=== PATIENT | female | born 1950 | race Caucasian/White ===

== ENCOUNTER 2018-09-23 17:11 | Inpatient (IN) | payer OTHER ==
[~2018-09-23] VITALS: Ht 157.5 cm; Wt 111.6 kg
--- NOTE | ~2018-09-23 | PR ---
[place], [place] PROGRESS NOTE NAME: SAMSON HERNÁNDEZ UNIT #: [id number] ROOM: 412 DOCTOR: DELIA ADAMS MD BIRTHDATE: [birth year] DOS: 09/30/2018 SUBJECTIVE: The patient is doing better. She has achieved maximum benefit from her stay here. OBJECTIVE: VITAL SIGNS: Graphic trend shows a pressure of 150/59, pulse of 75, respirations 20, temperature 98.6. LUNGS: Diminished breath sounds, scattered rales heard. HEART: Regular. ABDOMEN: Obese. EXTREMITIES: Without any edema. LABORATORY DATA: Sputum culture showing Staph aureus which is methicillin sensitive. ASSESSMENT AND PLAN: 1. Bilateral pneumonia with consolidation, status post bronchoscopy, with Staphylococcus aureus. 2. Hypertension. 3. Type 2 diabetes mellitus. Blood sugars 93 this morning to 414 yesterday evening. 4. Adult failure to thrive. The patient refused to go to rehab. Social service will be consulted for visiting nurses with PT, OT. 5. Respiratory failure, needs oxygen supplementation, 2 liters of oxygen continuous has been ordered. 6. Klebsiella pneumoniae, on meropenem and it should be switched to a p.o. antibiotic upon discharge. DELIA ADAMS MD CM:PNTRANS [id number] DELIA ADAMS MD 10/01/18 0524 interface
--- NOTE | ~2018-09-23 | EKG ---
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: Tova Blandon : 1950 Requested By: KASHIF HESTER Order Number: [id number] Reading MD: Kashif Ireland MD Measurements Intervals [place] Rate: 59 P: 69 MT: 229 QRS: 71 QRSD: 84 T: 53 QT: 511 QTc: 507 Interpretive Statements Sinus rhythm Prolonged MT interval Low voltage with right axis deviation Prolonged QT interval Compared to ECG 09/23/2018 18:24:13 First degree AV block now present Right-axis deviation now present Low QRS voltage now present Prolonged QT interval now present Electronically Signed On 09-26-2018 11:49:32 PDT by Kashif Ireland MD CM:EKGRPT:ELECTROCARDIOGRAM REPORT [id number] KASHIF HESTER MD EPIPHANY DRAFT REPORT KASHIF HESTER MD
--- NOTE | ~2018-09-23 | PR ---
[place], [place] PROGRESS NOTE NAME: SAMSON HERNÁNDEZ UNIT #: [id number] ROOM: 412 DOCTOR: DELIA ADAMS MD BIRTHDATE: [birth year] DOS: SUBJECTIVE: The patient is feeling much better this morning. Appreciate Dr. Ireland's input. OBJECTIVE: VITAL SIGNS: Blood pressure is 128/49, pulse of 66, respirations 20, temperature 98.0. LUNGS: Diminished breath sounds. Wheezes seem to be resolving. She seems to have some rales bilaterally. HEART: Regular. ABDOMEN: Obese, soft. EXTREMITIES: Without any edema. ASSESSMENT AND PLAN: 1. Acute hypoxic respiratory failure, assess for home O2 today. 2. Left upper and middle lobe pneumonia with consolidation. Dr. Ireland is seeing the patient. A bronchoscopy is scheduled today. 3. Acute kidney injury, multifactorial, possibly from underlying infectious process and shock kidney. 4. Urinary tract infection with Klebsiella pneumoniae, on meropenem. 5. Benign hypertension, controlled. Echocardiogram shows normal left ventricular function. No evidence of congestive heart failure this admission. 6. Type 2 diabetes mellitus, poorly controlled. Blood sugars are well controlled here for the last 48 hours. DELIA ADAMS MD CM:PNTRANS [phone] DELIA ADAMS MD 09/27/1809 interface
--- NOTE | ~2018-09-23 | WRIGHTHP ---
[place], [place] PATIENT HISTORY AND PHYSICAL EXAM NAME: SAMSON HERNÁNDEZ [facility] #: [id number] UNIT #: [id number] ROOM: 412 DOCTOR: DELIA ADAMS MD BIRTHDATE: [birth year] DOS: 09/23/2018 HISTORY OF PRESENT ILLNESS: This patient comes in with complaints of increasing difficulty breathing. The patient states that she has been sick for the last 2-3 weeks with a cough and increased sputum production. She denied having any chest pains, palpitations, does not have any fever or chills. She has noticed some swelling in her legs and in the Emergency Room, received 80 mg of Lasix. She has been taking 60 twice a day at home. PAST MEDICAL HISTORY: Significant for: 1. Type 2 diabetes mellitus, insulin-dependent, poorly controlled. 2. Last hospitalization in 08/2016, with diastolic CHF and hypoxic respiratory failure. Last stress test in 2015. 3. Primary osteoarthritis, right hip replacement. 4. Noncompliance with poor insight to medical problems. MEDICATIONS: She is currently on are 60 of Lasix b.i.d., atenolol 100 daily, glipizide 10 b.i.d., breathing treatments, lisinopril 20 b.i.d., lovastatin 10 daily, Lantus 28 units at bedtime. SOCIAL HISTORY: Nonsmoker, does not use any alcohol. PHYSICAL EXAMINATION: GENERAL: She is awake and alert and oriented. VITAL SIGNS: Blood pressure is 121/44, pulse of 98, respirations 22, temperature 98.0, pulse of 59. LUNGS: Diminished breath sounds, scattered wheezes bilaterally. HEART: Regular. ABDOMEN: Obese. EXTREMITIES: Without any edema. LABORATORY DATA: Chest x-ray shows cardiomegaly with CHF. Lactic acid was normal. WBC count is 11.4, hemoglobin 11.5, hematocrit 37.3. Protime 12.7. Comprehensive glucose 272, BUN 48, creatinine 2.70. ASSESSMENT AND PLAN: 1. Acute asthmatic bronchitis. The patient is placed on IV steroids, Pulmicort breathing treatments and IV antibiotics. 2. Possibility of diastolic congestive heart failure was raised. She was given extra diuretics in the Emergency Room. It has caused some slight elevation in BUN and creatinine. We will hold off on diuretics today. CT of the chest will be done without contrast. 3. Type 2 diabetes mellitus, insulin-dependent, poorly controlled in the past. Check hemoglobin A1c. 4. Benign hypertension, controlled. Check echocardiogram. [place], [place] PATIENT HISTORY AND PHYSICAL EXAM NAME: SAMSON HERNÁNDEZ UNIT #: [id number] ROOM: [facility] DOCTOR: DELIA ADAMS MD BIRTHDATE: [birth year] DELIA ADAMS MD CM:HISPHYS:PATIENT HISTORY AND PHYSICAL EXAMINATION 1 7 DELIA ADAMS MD 09/24/18925 interface
--- NOTE | ~2018-09-23 | PR ---
[place], [place] PROGRESS NOTE NAME: SAMSON HERNÁNDEZ UNIT #: [id number] ROOM: 412 DOCTOR: DELIA ADAMS MD BIRTHDATE: [birth year] DOS: 09/25/2018 SUBJECTIVE: The patient is sitting up in bed, using her breathing treatments. She does not appear to be in any major distress, wants to go home. OBJECTIVE: VITAL SIGNS: Graphic trend shows pressure 138/58, pulse of 58, respirations 18, temperature 98.5. LUNGS: Diminished breath sounds, scattered wheezes. HEART: Regular. ABDOMEN: Obese. EXTREMITIES: Without any edema. LABORATORY DATA: CT of the chest shows patchy areas of pneumonia involving the left upper and lower lobes. Blood culture shows no bacterial growth. Hemoglobin A1c is 8.8. ASSESSMENT AND PLAN: 1. Left upper and lower lobe pneumonia, on intravenous antibiotics. 2. Asthmatic bronchitis with acute exacerbation, on intravenous steroids. 3. Steroid-induced hyperglycemia and a type 2 diabetic, poorly controlled. She did not have any further hypoglycemic spells. 4. Chronic kidney disease. Avoid diuretics right now. There is no evidence of congestive heart failure. One bag of intravenous fluids to be given today. 5. Hypoxic respiratory failure. May require oxygen supplementation at home. DELIA ADAMS MD CM:PNTRANS 1 3 DELIA ADAMS MD 09/25/18 0823 interface
--- NOTE | ~2018-09-23 | DS ---
[place], [place] DISCHARGE SUMMARY NAME: SAMSON HERNÁNDEZ UNIT #: [id number] ROOM: 412 DOCTOR: BRYAN WINSTONDELIA BIRTHDATE: [birth year] DOS: 09/30/2018 DIAGNOSES: 1. Bilateral pneumonia with consolidation. 2. Bronchoscopy with bronch culture showing Staphylococcus aureus. 3. Type 2 diabetes mellitus, insulin-dependent. 4. Hypoxic respiratory failure. 5. Acute kidney injury. 6. Urinary tract infection. 7. Primary osteoarthritis. 8. Noncompliance with poor insight to medical problems. DISCHARGE MEDICATIONS: Breathing treatments, DuoNeb q.4h., oxygen 2 L per minute continuous, Pulmicort 0.5 b.i.d., calcium 1000 q.i.d., prednisone tapering dose, Lantus 40 units q. 5 p.m., glipizide 10 daily, Lasix 40 daily, hydralazine 25 b.i.d., Augmentin 875 twice a day for 7 days, and lovastatin 10 daily. HOSPITAL COURSE: This patient is 68 years old, comes in with complaints of shortness of breath and cough. The patient was admitted with diagnosis of CHF, but the patient did not have any CHF on admission. She mostly had bilateral pneumonia with consolidation, was placed on IV antibiotics and IV fluids. Diuretics that the patient was on were discontinued because of acute kidney injury. Hydration as well as albumin therapy, kidney functions have improved slightly. The patient's CT of the chest continued to show large bilateral pneumonia with consolidation. Dr. Ireland was consulted. Bronchoscopy was performed. Bronch cultures grew Staph aureus. The patient was given 1 dose of IV vancomycin and will be switched to p.o. Augmentin. UTI was noted with urine culture showing Klebsiella pneumoniae. Blood sugars have been up and down. She has had some hypoglycemic spells during the night, so the glyburide dosage was cut back. The Lantus dosage was increased. She has continued to require oxygen supplementation during the last few days and oxygen will be ordered upon home discharge. PT/OT has been consulted and the patient was encouraged to go to a rehab, but refused and so the plan therefore is to discharge her to home today to be followed as an outpatient. [place], [place] DISCHARGE SUMMARY NAME: SAMSON HERNÁNDEZ UNIT #: [id number] ROOM: [facility] DOCTOR: DELIA ADAMS MD BIRTHDATE: [birth year] DELIA ADAMS MD CM:ROLY [id number] DELIA ADAMS MD 09/30/18 1755 interface
--- NOTE | ~2018-09-23 | PROC NOTE ---
[place], [place] PROCEDURE NOTE NAME: SAMSON HERNÁNDEZ UNIT #: [id number] ROOM: 412 DOCTOR: TOMY HESTER MD,KASHIF BIRTHDATE: [birth year] DOS: 09/27/2018 BRONCHOSCOPY NOTE PREOPERATIVE DIAGNOSES: The patient with abnormal CT scan of the chest with excessive coughing, wheezing and acute pneumonia, rule out any malignancy. POSTOPERATIVE DIAGNOSES: Evidence of acute pneumonia was suggested. There was no visibility of any bronchial obstruction at the present time. Finding of acute tracheobronchitis as well. PROCEDURE DESCRIPTION: Informed consent was obtained. The patient was brought to the OR and placed in supine position. Conscious sedation was administered by the Anesthesia Department. After that, airway introduced into the mouth, bronchoscope advanced through the airway into laryngeal area. Epiglottis and vocal cords were seen, vocal cords moving symmetrically with movements. The bronchoscope was advanced to the vocal cords into the tracheal lumen, noted with a moderate amount of bilious secretions, suctioned out to the vivi level. All secretions were suctioned out with the help of normal saline wash. Vivi was seen. Submucosal edema noted of the tracheal lumen as well as endobronchial tree subsegment. Purulent secretion present in the endobronchial tree subsegments bilaterally, greater on the left than the right side, which was suctioned out and sent for culture. Procedure was well tolerated by the patient without difficulty. Postoperative findings will be discussed with the patient's family member once available or with the patient later once the patient recovers the effects of acute sedation. KASHIF HUITRON MD CM:PROCNOTE:PROCEDURE NOTE [id number] KASHIF HESTER MD
--- NOTE | ~2018-09-23 | PR ---
[place], [place] PROGRESS NOTE NAME: SAMSON HERNÁNDEZ UNIT #: [id number] ROOM: 412 DOCTOR: TOMY HESTER MD,KASHIF BIRTHDATE: [birth year] DOS: 09/29/2018 SUBJECTIVE: The patient was still noted with some shortness of breath with chest congestion and cough. Denies symptoms of chest pain. Denies symptoms of fever or chills or any acute hemoptysis. She denies symptoms of nausea or vomiting. OBJECTIVE: VITAL SIGNS: For the patient, which are recorded showed normal temperature, respiratory rate 18, heart rate 89, blood pressure 157/52-146/68. The pulse ox saturation on 2 liters nasal cannula was 97% saturation. HEENT: Chronic obesity. Head was atraumatic. Eye nonicterus. NECK: Supple. CARDIOVASCULAR: S1, S2 audible. LUNGS: Noted without any crackles. Expiratory wheezing noted scattered in the lungs bilaterally. ABDOMEN: Soft, nontender and obese. EXTREMITIES: No edema. IMPRESSION: The patient who has been currently noted with resolving acute pneumonia with acute exacerbation of bronchial asthma, chronic obstructive pulmonary combination. Slowly and gradually, the cultures of the sputum was noted gram-positive cocci, pending identification and sensitivities. PLAN OF THERAPY: The patient will be continued on the current medical management and plan. After the final culture results are available, the patient's discharge planning will be done accordingly. In the meantime, continue current therapy for the patient as a progress with usual care. KASHIF HUITRON MD CM:PNTRANS [phone] KASHIF HESTER MD 09/29/18 1554 interface
--- NOTE | ~2018-09-23 | CON ---
[place], [place] REPORT OF CONSULTATION NAME: SAMSON HERNÁNDEZ UNIT #: [id number] ROOM: 412 DOCTOR: TOMY HESTER MD,KASHIF BIRTHDATE: [birth year] DOS: 09/26/2018 REQUESTED BY: Alyssa Ruiz MD REASON FOR CONSULTATION: Assess for possibility of bronchoscopy with nonresolving pneumonia picture. HISTORY OF PRESENT ILLNESS: This is a 68-year-old white female patient who was admitted under care of Dr. Alyssa Ruiz as the patient has been noted with ongoing sepsis symptom for the past several months. The patient has been treated as an outpatient, but did not respond to the treatment. The patient denies any symptoms of chest pain, but noted progressive symptoms of shortness of breath ongoing for the past several months with significant worsening occurred in the last several days. She has been also complaining of excessive chest congestion, coughing as well. She does report symptoms of some wheezing with chest tightness. The patient has not been expectorating any sputum. The patient denies symptoms of hemoptysis or any acute chest pain at this time of assessment. REVIEW OF SYSTEMS: CONSTITUTIONAL SYMPTOMS: Fatigue and tiredness noted without any symptoms of fever or chills. EYES: Denies any burning, redness, or tenderness. EARS, NOSE, THROAT SYMPTOMS: No sore to worsen with does report some drainage. CARDIOVASCULAR SYSTEM: Denies anginal pain, but reporting edema of the lower extremity. There were no symptoms of palpitations. GASTROINTESTINAL SYMPTOMS: Denies dysphagia, nausea, vomiting, diarrhea, abdominal pain, hematemesis, melena, or hematochezia. Denies abnormal weight loss history. The patient has been noted with chronic obesity. SKIN: Abnormal lesions or rashes. GENITOURINARY: Tentative temperature, respiratory rate pain, or hematuria. CENTRAL NERVOUS SYSTEM: No dizziness, headache, diplopia, syncopal episodes. Remaining systems were reviewed, they were noted all negative. PAST MEDICAL HISTORY: Known for this patient. 1. Type 2 diabetes mellitus. 2. Congestive heart failure with preserved ejection fraction. Diastolic dysfunction. 3. Osteoarthritis. 4. Previous history of pneumonia. 5. Hip fracture that was treated in 08/2016. 6. Osteoarthritis of the major joints. PAST SURGICAL HISTORY: The patient reported as right hip replacement that was done in 2017. SOCIAL HISTORY: The patient is , nonsmoker lifetime. Denies any history of alcohol or illicit drug use. Has one child. [place], [place] REPORT OF CONSULTATION NAME: SAMSON HERNÁNDEZ UNIT #: [id number] ROOM: [facility] DOCTOR: TOMY HESTER MD,KASHIF BIRTHDATE: [birth year] MEDICATIONS: Medications from home were listed as Lasix, atenolol, Amaryl, nebulizer, bronchodilators, lisinopril, lovastatin, and Lantus insulin. FAMILY HISTORY: Unknown. CURRENT MEDICATIONS: Administered for this patient as Lantus insulin, glipizide, Solu-Medrol 30 mg IV daily, Pulmicort Respules 0.5 mg b.i.d. Sliding scale insulin coverage, simvastatin, DuoNeb, meropenem, and other p.r.n. medications use. DRUG ALLERGIES: CEFUROXIME CAUSING ANAPHYLAXIS. PHYSICAL EXAMINATION: GENERAL: A 68-year-old female patient currently sitting on the side of the bed, noted with audible wheezing and this morning of assessment. Oxygen supplementation nasal cannula with use. Weight of 5 feet 2 inches, weight of 238 pounds with BMI at this time recorded 43. VITAL SIGNS: For the patient, which are recorded showed the temperature noted normal since admission, respiratory rate 18-20, heart rate of 55-64, blood pressure 100/60. Pulse oxygen saturation recorded on admission as 86% on room air, currently to 2-3 liters nasal cannula was 97% saturation. HEAD, EYES, EARS, NOSE, AND THROAT: Head is atraumatic. Eyes, nonicterus. Severe decreased posterior pharyngeal space. CARDIOVASCULAR SYSTEM: S1, S2 audible. LUNGS: The patient was noted diffuse expiratory wheezing in the lungs bilaterally. There were no crackles. ABDOMEN: Noted soft and obese. EXTREMITIES: The patient noted without acute edema. MUSCULOSKELETAL: The patient was noted without any acute deformities. SKIN: No lesions or rashes. CENTRAL NERVOUS SYSTEM: Grossly intact. Cranial nerves 2-12 intact as well. LABORATORY DATA: The CBC of 09/23/2018, WBC count of 11.4, hemoglobin 11.5, platelet count normal. PT/PTT on 09/23/2018 was noted as normal PT and PTT. CMP 48, creatinine 2.70, glucose 272. LFTs were grossly normal. BMP for the patient, BUN 47, creatinine 2.59. PT/INR, which was done this morning was normal. The BMP of this morning, BUN 71, creatinine 2.89. Echocardiogram that was done on this month reported by Dr. Briones was reported with findings of no valvular abnormality moderate concentric LVH, moderate pulmonary hypertension with a pressure right ventricular systolic pressure 45-50. Left ventricular ejection fraction noted 60%, a limited study because large body habitus. The review of the radiology data as well. Chest x-ray that was done on 09/23/2018 this month was reviewed, shows a right hilar infiltration responding possibly consideration of the congestive heart failure as well. There was no chest x-ray done intervening between diet. CT scan chest without contrast does limit significant mediastinal structure assessment including lymph node was noted with an area of consolidation, infiltration and mass-like lesion which has been noted in the left upper and the lower lobe bronchus proximal area. Small tree-in-bud opacity noted scattered in the left lower lobe as well with patchy infiltration. Small to moderate right pleural fluid was also seen. A small left pleural [place], [place] REPORT OF CONSULTATION NAME: SAMSON HERNÁNDEZ UNIT #: [id number] ROOM: 412 [facility] [birth year] fluid was also visible. IMPRESSION: 1. The patient will be currently admitted to the hospital where have been reported past several months, currently noted with finding consist acute congestive heart failure as well as acute hypoxic respiratory failure secondary to the acute exacerbation of bronchial asthma for as well as acute pneumonia. Rule out malignant process left hemithorax as well. 2. Congestive heart failure noted with diastolic dysfunction preserved ejection fraction. 3. Chronic morbid obesity as well. 4. Possible chronic kidney disease. 5. Hyperglycemic uncontrolled diabetes with use of even Solu-Medrol low dose has 30 mg daily. 6. Rule out malignant at the left hemithorax, especially with chronic infection endobronchial obstruction. 7. Pulmonary hypertension. PLAN OF TREATMENT: At this time, could not be corrected right knee further assessment for characterization based on the WHO classification. PLAN OF MANAGEMENT: Continue current dose of Solu-Medrol, Pulmicort Respules, any antibiotics. Proceed with the CT scan of the chest rather proceed with the bronchoscopy to be done tomorrow morning. Continue diuretic for close monitor kidney functions and electrolytes. Bronchodilators to be continued. Current antibiotic as meropenem, but in addition to that, I will be ordered to cover for atypical infection as well. Order strep antigen and legionella antigen assessment as well. The Levaquin will be dosed based on the patient's kidney functions. Cardiology consultation would be beneficial as well. Supportive therapy plan and management of the pleural fluid and large in the right side, most related to congestive heart failure. Thoracentesis could be done. Risk and the benefit of bronchoscopy has been ordered on this patient. Other additional treatment changes will be requested based on the progression of illness. Sputum for Gram stain and culture was ordered as well. Respiratory virus panel assess will be done as well. Order the ESR as well and a CRP to assess the inflammatory burden. Obtain arterial blood gas as well to assess ventilatory status. Continue oxygen supplementation, maintain pulse ox 92% or greater. BiPAP could be used at this time empirically to decrease the respiratory distress. Other therapy, plan of management, care plan as well with additional treatment changes need to be made for the patient based on the progression of the illness. Thanks for allowing me to participate and the case was discussed with Dr. Alyssa Ruiz as well. [place], [place] REPORT OF CONSULTATION NAME: SAMSON HERNÁNDEZ UNIT #: [id number] ROOM: [facility] DOCTOR: KASHIF MAE MD BIRTHDATE: [birth year] KASHIF HUITRON MD CM:CONSTR:REPORT OF CONSULTATION 1300 10/09/18 0949 interface
--- NOTE | ~2018-09-23 | PR ---
[place], [place] PROGRESS NOTE NAME: SAMSON HERNÁNDEZ UNIT #: [id number] ROOM: 412 DOCTOR: TOMY HESTER MD,KASHIF BIRTHDATE: [birth year] DOS: 09/30/2018 PULMONARY PROGRESS NOTE SUBJECTIVE: The patient noted comfortable at this time, resting on the bed. Chest congestion was still noted with nonproductive cough at times. There was no symptoms of fever or chills. The cultures of the bronchial washing noted with light growth of Staph aureus. OBJECTIVE: VITAL SIGNS: Normal temperature, respiratory rate 18, heart rate 93, blood pressure 135/50. The pulse oxygen saturation recorded on 2 liters nasal cannula 92% saturation. HEENT: Head was atraumatic. Eyes nonicterus. NECK: Supple. CARDIOVASCULAR: S1, S2 audible. LUNGS: Decreased breath sounds, scattered crackles, no wheezing. ABDOMEN: Soft, nontender. Bowel sounds present. EXTREMITIES: No acute change. IMPRESSION: 1. The patient with resolving acute respiratory failure gradually with acute pneumonia with Staphylococcus aureus. Leukocytosis was also noted. 2. Acute exacerbation of chronic obstructive pulmonary disease/bronchial asthma. PLAN OF MANAGEMENT: Discharge planning for the patient on oral Augmentin upon discharge with a tapering dose of prednisone. She also requires the oxygen supplementation as assessed because of the exertional hypoxia noted. KASHIF HUITRON MD CM:PNTRANS 1235 [id number] KASHIF HESTER MD 09/30/18 1329 interface
--- NOTE | ~2018-09-23 | EKG ---
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
--- NOTE | ~2018-09-23 | PR ---
[place], [place] PROGRESS NOTE NAME: SAMSON HERNÁNDEZ [facility] #: [id number] UNIT #: [id number] ROOM: 412 DOCTOR: TOMY HESTER MD,KASHIF BIRTHDATE: [birth year] DOS: 09/27/2018 PULMONARY PROGRESS NOTE SUBJECTIVE: The patient has been noted with partial improvement in respiratory symptoms. Still noted with significant cough and wheezing, started on BiPAP yesterday, with hypercapnia noted as well as respiratory failure. She is n.p.o. past night for bronchoscopy. She has not reported any symptoms of fever or chills. There were no symptoms of hemoptysis. Denies symptoms of abdominal pain, nausea, vomiting or diarrhea. The remaining systems were reviewed, they were noted all negative. OBJECTIVE: VITAL SIGNS: Which have been recorded showed normal temperature, respiratory rate 22, heart rate 68, blood pressure 139/50. The pulse oxygen saturation on 3 liters nasal cannula was 95% saturation and on the BiPAP was 96% saturation. HEENT: Chronic obesity. NECK: Supple and obese. CARDIOVASCULAR: S1 and S2 audible. LUNGS: The patient was noted with reduction in wheezing of the lungs and scattered crackles of the lungs. ABDOMEN: Soft and obese. EXTREMITIES: Without any acute edema. MUSCULOSKELETAL: Without any acute deformities. CENTRAL NERVOUS SYSTEM: Appeared to be intact at this time. LABORATORY DATA: Arterial blood gas, pH of 7.23, pCO2 57, pO2 of 89 on 2 liters nasal cannula prior to use of BiPAP; after the BiPAP, the patient's first blood gas with pH of 7.25, pCO2 51.7, pO2 91, settings of 16/10; and the third arterial blood gas of the patient, pH of 7.32, pCO2 48, pO2 of 78 noted on 30% oxygen on the BiPAP setting of 18/10. IMPRESSION: 1. The patient with acute pneumonia, rule out malignant process as well intrathoracic on the left side. 2. Acute hypercapnic and hypoxemic respiratory failure secondary to above. 3. Acute exacerbation of bronchial asthma/chronic obstructive pulmonary disease has been also considered. 4. Acute congestive heart failure as well. PLAN OF MANAGEMENT: Continue BiPAP at this time. Proceed with fiberoptic bronchoscopy as planned. Based on the bronchoscopy, any modification in treatment changes as necessary will be done accordingly. All other therapy and plan of management to be continued as well as previously. Usual care, other supportive plan of treatment, and therapies. Additional treatment changes will be made for the patient based on progression of the illness. [place], [place] PROGRESS NOTE NAME: SAMSON HERNÁNDEZ UNIT #: [id number] ROOM: [facility] DOCTOR: KASHIF MAE MD BIRTHDATE: [birth year] KASHIF HUITRON MD CM:PNTRANS [id number] KASHIF HESTER MD 09/28/18 0248 interface
--- NOTE | ~2018-09-23 | PR ---
[place], [place] PROGRESS NOTE NAME: SAMSON HERNÁNDEZ [facility] #: [id number] UNIT #: [id number] ROOM: 412 DOCTOR: TOMY HESTER MD,KASHIF BIRTHDATE: [birth year] DOS: 09/28/2018 PULMONARY PROGRESS NOTE SUBJECTIVE: The patient is sitting comfortably this morning on the chair. She had bronchoscopy completed yesterday, which noted severe acute pneumonia finding. There were no endobronchial obstructive lesions. She has reported reduction in symptoms of shortness of breath. There were no symptoms of hemoptysis. No chest pain. Wheezing has been improving. The distress in general from a respiratory standpoint has decreased markedly. Denies symptoms of abdominal pain, nausea, vomiting, or diarrhea. She was continued on intravenous antibiotics, bronchodilators and corticosteroids without any changes. The remaining systems were reviewed, they were noted all negative. OBJECTIVE: VITAL SIGNS: Which have been recorded showed normal temperature, respiratory rate 17, heart rate 69, blood pressure noted as 147/76. The pulse oxygen saturation on 40% oxygen is 96% saturation. HEENT: Examination shows head is atraumatic. Eyes nonicterus. NECK: Supple. Chronic obesity. CARDIOVASCULAR: S1 and S2 audible. LUNGS: Decreased breath sounds noted in the lungs bilaterally. There is no wheezing or crackles at the present time. Wheezing has improved significantly. ABDOMEN: Soft, nontender. Bowel sounds present. EXTREMITIES: Noted with chronic obesity, without any acute edema at the present time. MUSCULOSKELETAL: Without acute deformities. LABORATORY DATA: CBC this morning: WBC 9.6, hemoglobin normal, hematocrit normal, platelet count normal. BMP: BUN 76, creatinine 2.24. Cultures of the bronchial washings preliminarily noted as normal jay jay. Gram stain of yesterday noted as many white blood cells, moderate epithelial cells, a few Gram-positive cocci in pairs and chains, a few Gram-positive bacilli. DIAGNOSTIC DATA: Chest x-ray was also done, 2 views, that was obtained today and reviewed, shows pulmonary infiltration, it was not noted with any progression, partial improvement would be considered, especially in the left perihilar infiltration. IMPRESSION: 1. Acute pneumonia with acute exacerbation of chronic obstructive pulmonary disease as well as acute hypercapnic and hypoxic respiratory failure, positive improvement and resolving with current treatment. 2. The patient with acute congestive heart failure as well. 3. Chronic obesity, suspicion of obstructive sleep apnea disorder. PLAN OF MANAGEMENT: The patient has been switched to oral prednisone by primary care attending 20 mg daily and that will be tapered. Continuation of antibiotic, meropenem. Monitor culture results. Continue bronchodilators, other therapy plan of management. Additional treatment changes and [place], [place] PROGRESS NOTE NAME: SAMSON HERNÁNDEZ UNIT #: [id number] ROOM: 412 DOCTOR: KASHIF MAE MD BIRTHDATE: [birth year] recommendations based on progression of the illness. Discharge planning possibly on Sunday on oral conversion of antibiotic might be considered. KASHIF HUITRON MD CM:PNTRANS [phone] KASHIF HESTER MD 09/29/18 0257 interface
--- NOTE | ~2018-09-23 | PR ---
[place], [place] PROGRESS NOTE NAME: [id number] UN[facility] #: [id number] ROOM: 412 DOCTOR: DELIA ADAMS MD BIRTHDATE: [birth year] DOS: SUBJECTIVE: The patient is doing better than the last few days. Appreciate Dr. Ireland's input. She underwent a bronchoscopy yesterday. We do not have the bronch cultures completely back yet. PHYSICAL EXAMINATION: VITAL SIGNS: Blood pressure is 139/48, pulse of 62, respirations 19, temperature 98.6. LUNGS: Diminished breath sounds, a few scattered rales and wheezes heard, but much improved since admission. HEART: Regular. ABDOMEN: Obese. EXTREMITIES: Without any edema. ASSESSMENT AND PLAN: 1. Left-sided pneumonia with consolidation on IV antibiotics. 2. Acute respiratory failure, home O2 assessment will need to be performed. The patient's oxygen level was in the 80s yesterday, she feels that it is much improved today. We will wait and see what the readings are. She may require a short term hospitalization. 3. Acute kidney injury in a patient with chronic kidney disease, most likely shock kidney. One dose of albumin will be given today. 4. Benign hypertension, controlled. DELIA ADAMS MD CM:PNTRANS [id number] DELIA ADAMS MD 09/28/18 1519 interface
--- NOTE | ~2018-09-23 | PR ---
[place], [place] PROGRESS NOTE NAME: SAMSON HERNÁNDEZ UNIT #: [id number] ROOM: 412 DOCTOR: DELIA ADAMS MD BIRTHDATE: [birth year] DOS: 09/29/2018 SUBJECTIVE: The patient is resting in a chair, does not have any complaints. OBJECTIVE: VITAL SIGNS: Graphic trend shows a pressure of 157/52, pulse of 76, respirations 18, temperature 98.4. LUNGS: Diminished breath sounds, scattered wheezes and rales. HEART: Regular. ABDOMEN: Obese. EXTREMITIES: Without any edema. ASSESSMENT AND PLAN: 1. Pneumonia with consolidation, on IV antibiotics. Sputum culture is growing light gram-positive cocci, not completed yet. Discussed with Dr. Ireland. We will wait for the final cultures to be completed before we discharge the patient to home. Chest x-ray does not show much improvement. 2. Benign hypertension, controlled. 3. 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 Routine labs will be ordered for tomorrow. 4. Type 2 diabetes mellitus, controlled. Blood sugar 134 this morning at 4:00. DELIA ADAMS MD CM:PNTRANS 3 [phone] DELIA ADAMS MD 09/29/[id number] interface
--- NOTE | ~2018-09-23 | PR ---
[place], [place] PROGRESS NOTE NAME: SAMSON HERNÁNDEZ UNIT #: [id number] ROOM: 412 DOCTOR: DELIA ADAMS MD BIRTHDATE: [birth year] DOS: SUBJECTIVE: The patient is about the same, does not have any changes. She still has significant bronchospasm. OBJECTIVE: VITAL SIGNS: Blood pressure 100/60, pulse of 55, respirations 20, temperature 98.1. LUNGS: Diminished breath sounds, scattered wheezes bilaterally. HEART: Regular. ABDOMEN: Obese. EXTREMITIES: Without any edema. LABORATORY DATA: Urine culture shows Klebsiella pneumoniae. BMP this morning, glucose 92, BUN 71, creatinine 2.99, Sodium 137, potassium 4.5. ASSESSMENT AND PLAN: 1. Type 2 diabetes mellitus with diabetic nephropathy. Kidney functions are fairly stable. It is not much change with IV fluids. 2. Urinary tract infection with Klebsiella pneumoniae on IV meropenem. 3. Moderate intermittent asthma with asthmatic exacerbation. 4. Left upper lobe and lower lobe pneumonia, on IV antibiotics. Change antibiotics as Dr. Ireland for a bronchoscopy. Discussed with Dr. Ireland. DELIA ADAMS MD CM:PNTRANS [phone] DELIA ADAMS MD 09/26/18 1555 interface
[~2018-09-23 17:11] MED LIST: AMLODIPINE BESY1 TAB PO; ATENOLOL100 M1 PO; CEFUROXIME AXE250 MG PO; CHLORTHALIDONE25 MG PO; DUONEB 3 MG/3 ML3 M1 INH; DUONEB 3 MG/3 ML3 M1 NEB; FLEXERIL10 MG PO; FUROSEMIDE20 M1 PO; FUROSEMIDE40 MG PO; GLIPIZIDE5 MG PO; LASIX40 MG PO; LEVOFLOXACIN500 MG PO; LISINOPRIL20 MG PO; LOVASTATIN10 MG PO; MOTRIN800 MG PO; NORVASC10 MG PO; PIOGLITAZONE HC15 MG PO; TOUJEO300 U/ML SQ
[2018-09-23 17:12] VITALS: BP 156/42
--- NOTE | 2018-09-23 17:36 | NUR ---
PT TAKEN TO ROOM 16 AND OXYGEN WAS 86% ON RA PLACED ON 3L NC
[2018-09-23 18:23] LABS: BASO % 0.4 % (0.0-1.0); EOS # 0.1 10*3/uL (0.0-0.4); EOS % 0.7 % (1.0-4.0); HEMATOCRIT 37.3 % (37.0-47.0); HEMOGLOBIN 11.5 g/dl (12.0-16.0); LYMPH # 0.8 10*3/uL (1.3-4.4); LYMPH % 7.3 % (27.0-41.0); MEAN CORPUSCULAR HGB 25.3 pg (27.0-31.0); MEAN CORPUSCULAR HGB CONC 30.8 g/dl (33.0-37.0); MEAN PLATELET VOLUME 14.4 fl (9.6-12.3); MONO # 1.1 10*3/uL (0.1-1.0); MONO % 9.6 % (3.0-9.0); NEUT # 9.3 10*3/uL (2.3-7.9); NEUT % 81.7 % (47.0-73.0); PLATELET COUNT AUTOMATED 224 10*3/uL (130-400); RED BLOOD COUNT 4.55 10*6/uL (4.10-5.10); RED CELL DISTRI WIDTH 15.4 % (0-14.5); WHITE BLOOD COUNT 11.4 10*3/uL (4.8-10.8)
[2018-09-23 18:41] LABS: ACT PARTIAL THROMBO TIME 23.6 SECONDS (20.8-31.5); INTERNATIONAL NORM RATIO 1.2 (2.0-3.5)
[2018-09-23 18:53] LABS: ALBUMIN 3.3 gm/dl (3.1-4.5); BUN 48 mg/dl (7-24); CHLORIDE 102 mmol/L (98-107); POTASSIUM 4.2 mmol/L (3.5-5.1); SGOT/AST 17 IU/L (3-35); SGPT/ALT 23 U/L (12-78); SODIUM 137 mmol/L (136-145); TOTAL PROTEIN 7.9 gm/dL (6.4-8.2)
[2018-09-23 18:55] LABS: ALKALINE PHOSPHATASE 148 U/L (45-117)
[2018-09-23 18:58] LABS: TROPONIN I < 0.015 ng/ml (<0.045)
[2018-09-23 19:33] VITALS: BP 138/53
[2018-09-23 19:43] VITALS: BP 138/53
[2018-09-23 20:15] VITALS: BP 144/44
--- NOTE | 2018-09-23 20:15 | NUR ---
A 68, admitted to , under the services of DELIA De Jesus MD with a diagnosis of CHF EXACERBATON, HYPOXIUA. Chief complaint is SHORTNESS OF BREATH. Patient arrived via stretcher from ER. Monitor applied. Initial assessment completed. Vital signs taken and recorded. DELIA DE JESUS MD notified of admission to the unit. Orders received. See assessment for past medical history, medications and allergies. Patient and/or family oriented to unit. [facility] visitation policy reviewed. Clothing/patient valuable form completed. ARJUN ARRINGTON
--- NOTE | 2018-09-23 20:41 | NUR ---
MESSAGE LEFT ON DR. ADAMS'S ANSWERING MACHINE REGARDING NEED FOR ADMISSION ORDERS, AWAITING RETURN CALL. ARJUN ARRINGTON RN
[2018-09-23 20:45] LABS: BILIRUBIN NEGATIVE (NEGATIVE); BLOOD TRACE-LYSED (NEGATIVE); CLARITY SL CLOUDY (CLEAR); COLOR YELLOW (YELLOW); GLUCOSE NEGATIVE (NEGATIVE); KETONE NEGATIVE (NEGATIVE); LEUKO ESTERASE 1+ (NEGATIVE); NITRITE NEGATIVE (NEGATIVE); PH 5.5 (5.0-9.0); SPECIFIC GRAVITY 1.015 (1.005-1.030); UROBILINOGEN 0.2 E.U./dl (0.2-1.0)
[2018-09-23] MEDS ORDERED: LASIX80 MG PO (20:51)
[2018-09-23] MEDS ORDERED: LANTUS SOL100 UNIT/1 SQ (20:53)
[2018-09-23 21:07] LABS: RBC 0-2 rbc/hpf (0-2); WBC 31-40 wbc/hpf (0-5)
[2018-09-23 21:08] LABS: BACTERIA 4+; MUCOUS TRACE
[2018-09-24] VITALS: BP 121/44
--- NOTE | 2018-09-24 02:34 | NUR ---
PT. STATED BLOOD SUGAR FELT LOW. SKIN WARM AND DRY, PATIENT STATED SHE FELT SHAKEY. BEDSIDE GLUC OBTAINED, IT WAS 61. PT. PROVIDED WITH BOXED LUNCH DUE TO LANTUS GIVEN AT HS. WILL CONTINUE TO MONITOR. ARJUN ARRINGTON RN
[2018-09-24 06:27] LABS: HEMATOCRIT 33.7 % (37.0-47.0); HEMOGLOBIN 10.3 g/dl (12.0-16.0); MEAN CELL VOLUME 83.4 fl (81.0-99.0); MEAN CORPUSCULAR HGB 25.5 pg (27.0-31.0); MEAN CORPUSCULAR HGB CONC 30.6 g/dl (33.0-37.0); PLATELET COUNT AUTOMATED 199 10*3/uL (130-400); RED BLOOD COUNT 4.04 10*6/uL (4.10-5.10); RED CELL DISTRI WIDTH 15.4 % (0-14.5); WHITE BLOOD COUNT 7.9 10*3/uL (4.8-10.8)
[2018-09-24 06:51] LABS: CREATININE 2.59 mg/dL (0.55-1.02)
[2018-09-24 07:23] LABS: PLATELET SUFFICIENCY NORMAL (NORMAL); TOTAL CELLS COUNTED 100 #CELLS
--- NOTE | 2018-09-24 08:33 | NUR ---
PT FOUND TO BE 79% ON RA FOLLOWING COMING BACK TO ROOM FROM CT. PT PUT ON 3.5L, POX 92-93%. RESPIRATORY ENTERING ROOM FOR TREATMENT.
--- NOTE | 2018-09-24 09:05 | NUR ---
IN TO SEE PT.
[2018-09-24 10:23] VITALS: BP 138/42
--- NOTE | 2018-09-24 11:00 | NUR ---
Manager Latin in to talk to patient. Patient states lives at home with her . There are 12 steps in the home. Physician: Dr. Alyssa Ruiz Pharmacy: [facility] Home health services: none Patient's level of ADLs: MINIMAL ASSIST Patient has working utilities: yes DME: cane, nebulizer Follow-up physician's appointment after d/c: she prefers to make her own follow up appt after discharge Does patient want to access PORTAL?: no Discharge plan discussed with patient. She lives at home with her . She is independent in her ADLs and ambulates with a cane. Discussed home health care services and she denies any home needs at this time. When medically stable she will be discharged to home. NATALIA GROVER
[2018-09-24 11:56] VITALS: BP 124/60
[2018-09-24 15:52] VITALS: BP 148/61
[2018-09-24 20:00] VITALS: BP 139/51
--- NOTE | 2018-09-24 20:52 | NUR ---
NOTIFIED OF GLUCOSE 476. DISCUSSED PATIENT'S GLUCOSE TRENDS & PATIENT'S C/O BOTTOMING OUT AT HOME AROUND 3 OR 4 AM. PATIENT'S BSG DROPPED TO 64 THROUGHOUT THE NIGHT LAST NIGHT WELL. PER , CHANGE LANTUS TO BE GIVEN AT 0730 AND GIVE 15 UNITS REGULAR INSULIN NOW.
--- NOTE | 2018-09-24 23:38 | NUR ---
15 UNITS HUMULIN GIVEN PER ORDER FOR BSG 408. WILL CONTINUE TO MONITOR. PATIENT DENIES ANY FURTHER NEEDS/DOES NOT VOICE ANY COMPLAINTS AT THIS TIME.
[2018-09-24 23:58] VITALS: BP 138/58
[2018-09-25 06:28] LABS: CREATININE 2.8 mg/dL (0.55-1.02); POTASSIUM 4.3 mmol/L (3.5-5.1)
[2018-09-25 08:00] VITALS: BP 134/60
[2018-09-25 12:00] VITALS: BP 132/53
[2018-09-25 16:00] VITALS: BP 140/45
[2018-09-25 20:00] VITALS: BP 143/56
[2018-09-26] VITALS: BP 119/53
[2018-09-26 08:00] VITALS: BP 100/60
[2018-09-26 08:47] LABS: CREATININE 2.89 mg/dL (0.55-1.02); POTASSIUM 4.5 mmol/L (3.5-5.1)
[2018-09-26 10:05] LABS: INTERNATIONAL NORM RATIO 1.1 (2.0-3.5)
--- NOTE | 2018-09-26 11:00 | NUR ---
Kettle Coordinator in to see patient. No new needs or request at this time. She denies any home needs. When medically stable she will be discharged to home.
[2018-09-26 13:27] LABS: ABG BASE EXCESS -3.7 mmol/L (-2.0-2.0); ABG HCO3 23.9 mmol/l (22-26); ABG O2 SATURATION 97.2 % (95-97); ARTERIAL BLOOD GAS PCO2 57.7 mmHg (35-45); ARTERIAL BLOOD GAS PH 7.239 (7.35-7.45); ARTERIAL BLOOD GAS PO2 89.5 mmHg (80-90)
[2018-09-26 16:00] VITALS: BP 127/48
[2018-09-26 19:28] LABS: ABG BASE EXCESS -4.4 mmol/L (-2.0-2.0); ABG HCO3 22.4 mmol/l (22-26); ABG O2 SATURATION 97.1 % (95-97); ARTERIAL BLOOD GAS PCO2 51.7 mmHg (35-45); ARTERIAL BLOOD GAS PH 7.259 (7.35-7.45); ARTERIAL BLOOD GAS PO2 91.2 mmHg (80-90)
--- NOTE | 2018-09-26 19:28 | NUR ---
SITTING UP IN BED AT THIS TIME WITH VISITORS AT BEDSIDE. DENIES ANY NEEDS OR COMPLAINTS. O2 IN USE VIA NC. IV FLUIDS INFUSING INTO LEFT HAND. CALL LIGHT IS WITHIN REACH. ENCOURAGED TO USE CALL LIGHT FOR NEEDS. WILL MONITOR.
--- NOTE | 2018-09-26 19:49 | NUR ---
SPOKE WITH DR HUITRON REGARDING BLOOD GAS RESULTS. PER DR HUITRON MAKE BIPAP 18/10 50% NEEDS TO CONTINUOUSLY USE BIPAP EXCEPT MEALS. WILL NOTIFY RESPIRATORY.
[2018-09-26 20:00] VITALS: BP 154/62
--- NOTE | 2018-09-26 22:59 | NUR ---
RESTING IN BED WITH EYES CLOSED. BIPAP IN PLACE. CONTINUOUS PULSE OX MONITOR IN USE. NO DISTRESS NOTED. CALL LIGHT IS WITHIN REACH. WILL MONITOR.
[2018-09-27] VITALS (8 sets, daily range): BP systolic 104–153; BP diastolic 45–64
--- NOTE | 2018-09-27 00:37 | NUR ---
RESTING IN BED ON RIGHT SIDE WITH EYES CLOSED. BIPAP IN USE AT THIS TIME. CONTINUOUS PULSE OX IN USE. AWAKENS EASILY. CALL LIGHT IN REACH. WILL MONITOR.
[2018-09-27 07:23] LABS: ABG BASE EXCESS -1.2 mmol/L (-2.0-2.0); ABG HCO3 24.6 mmol/l (22-26); ABG O2 SATURATION 95.8 % (95-97); ARTERIAL BLOOD GAS PCO2 48.9 mmHg (35-45); ARTERIAL BLOOD GAS PH 7.32 (7.35-7.45); ARTERIAL BLOOD GAS PO2 78.4 mmHg (80-90)
--- NOTE | 2018-09-27 09:00 | NUR ---
Curling Machine Operator in to see patient. She is currently not in her room. She is having a bronchoscopy. Will follow up at a later time.
--- NOTE | 2018-09-27 10:14 | NUR ---
PATIENT HAS RETURNED FROM [facility] STATING HER SUGAR OS LOW AND SHE WANTS FOOD. BS CHECK 90. ORDERED FOOD.
--- NOTE | 2018-09-27 13:00 | NUR ---
01:00 PM PT PLACED ON RA IN PREP FOR AMBULATORY PULSE OX CHECK. 01:30 PM RA SPO2 AT REST 87%. PT PLACED BACK ON 2 L NC. SPO2 97% ON 2 L NC. DID NOT AMBULATE PT ON O2.
--- NOTE | 2018-09-27 19:32 | NUR ---
SITTING UP IN BED SIDE CHAIR WITH VISITOR IN ROOM. DENIES ANY NEEDS OR COMPLAINTS. STATES THAT SHE IS FEELING BETTER SINCE [facility] THIS MORNING. NO NEEDS OR COMPLAINTS AT THIS TIME. CALL LIGHT IS WITHIN REACH. ENCOURAGED TO USE CALL LIGHT FOR NEEDS. WILL MONITOR.
--- NOTE | 2018-09-27 19:47 | NUR ---
STAT GLUCOSE REFLEX ORDERED AT THIS TIME FOR "CRITICALLY HIGH" GLUCOSE LEVEL ON GLUCOMETER. AWAITING RESULTS.
--- NOTE | 2018-09-27 20:31 | NUR ---
SPOKE WITH DR ADAMS REGARDING GLUCOSE OF 533. PER DR ADAMS ORDER BMP FOR AM LABS, GIVE 25 UNITS OF REGULAR INSULIN NOW AND D/C SOLUMEDROL. NO OTHER ORDERS AT THIS TIME.
[2018-09-28] VITALS: BP 139/48
[2018-09-28 05:57] LABS: BASO % 0.1 % (0.0-1.0); LYMPH # 1.1 10*3/uL (1.3-4.4); MEAN CELL VOLUME 83.1 fl (81.0-99.0); MEAN CORPUSCULAR HGB 25.2 pg (27.0-31.0); MEAN CORPUSCULAR HGB CONC 30.3 g/dl (33.0-37.0); MEAN PLATELET VOLUME 14.5 fl (9.6-12.3); MONO # 0.9 10*3/uL (0.1-1.0); MONO % 9.3 % (3.0-9.0); NEUT # 7.6 10*3/uL (2.3-7.9); NEUT % 78.5 % (47.0-73.0); PLATELET COUNT AUTOMATED 210 10*3/uL (130-400); RED BLOOD COUNT 3.97 10*6/uL (4.10-5.10); RED CELL DISTRI WIDTH 15.5 % (0-14.5); WHITE BLOOD COUNT 9.6 10*3/uL (4.8-10.8)
[2018-09-28 06:01] LABS: CREATININE 2.24 mg/dL (0.55-1.02); POTASSIUM 4.4 mmol/L (3.5-5.1)
[2018-09-28 08:00] VITALS: BP 155/49
--- NOTE | 2018-09-28 09:27 | NUR ---
PT COMPLAIN OF DIARRHEA X3 THIS AM, WILL NOTIFY DR. ADAMS
--- NOTE | 2018-09-28 09:44 | NUR ---
DR. ADAMS AWARE PT COMPLAIN OF DIARRHEA, ORDER TO COLLECT CDIFF SAMPLE, IF NEGATIVE OKAY TO START LOMOTIL, TELEPHONE ORDERS PLACED. PT AWARE NEED STOOL SAMPLE
[2018-09-28 12:00] VITALS: BP 147/76
[2018-09-28 15:06] LABS: ACID FAST SPEC PROCESSING Concentration (.)
[2018-09-28 16:00] VITALS: BP 153/54
--- NOTE | 2018-09-28 18:30 | NUR ---
PT WAS SLEEPING UP IN CHAIR, HAD OXYGEN OFF SAO2 WAS 88%, HAD PATIENT PUT OXYGEN BACK ON AT 2 LITERS, SAO2 INCREASED TO 95% WITHIN 1 MINUTE
[2018-09-28 20:00] VITALS: BP 158/62
--- NOTE | 2018-09-28 20:00 | NUR ---
RESTING IN CHAIR IN ROOM WITH LEGS ELEVATED. HEP LOCK INTACT TO LEFT WRIST; SITE ASYMPTOMATIC. PULSE OX 99% ON 2 LPM VIA NASAL CANNULA & IS HUMIDIFIED. LUNGS DIMINISHED WITH WHEEZES NOTED. PT. HAS A MOIST COUGH PRODUCTIVE FOR GREEN/YELLOW SPUTUM PER PATIENT. NONPITTING EDEMA NOTED TO BILATERAL LOWER EXTREMTIES. PT. VOICES NO C/O AT THIS TIME. CALL LIGHT WITHIN REACH.
--- NOTE | 2018-09-28 20:15 | NUR ---
BLOOD SUGAR 342; COVERAGE GIVEN PER EMAR.
--- NOTE | 2018-09-28 22:00 | NUR ---
UP AMBULATING IN ROOM TO BATHROOM. PUT PULSE OX BACK ON PATIENT.
[2018-09-29] VITALS: BP 157/52
--- NOTE | 2018-09-29 | NUR ---
BLOOD SUGAR 228; COVERAGE GIVEN PER EMAR.
--- NOTE | 2018-09-29 04:00 | NUR ---
RESTING IN BED WITH HOB ELEVATED. BIPAP INTACT. PULSE OX 97% ON BIPAP. NO DISTRESS NOTED. CALL LIGHT WITHIN REACH.
--- NOTE | 2018-09-29 06:00 | NUR ---
REQUESTING TO COME OFF THE BIPAP. 02 PLACED ON PATIENT. UP TO VOID IN BSC. VOICES NO C/O AT THIS TIME; NO DISTRESS NOTED.
[2018-09-29 08:15] VITALS: BP 146/68
[2018-09-29 12:00] VITALS: BP 126/84
--- NOTE | 2018-09-29 14:04 | NUR ---
NOTIFIED DR. ADAMS OF [facility] CULTURE
[2018-09-29 16:00] VITALS: BP 164/56
[2018-09-29 20:00] VITALS: BP 165/69
[2018-09-30] VITALS: BP 155/59
[2018-09-30 06:43] LABS: BASO % 0.2 % (0.0-1.0); EOS # 0.1 10*3/uL (0.0-0.4); EOS % 0.7 % (1.0-4.0); HEMATOCRIT 34.2 % (37.0-47.0); HEMOGLOBIN 10.4 g/dl (12.0-16.0); LYMPH # 1.5 10*3/uL (1.3-4.4); LYMPH % 12.4 % (27.0-41.0); MEAN CELL VOLUME 83.4 fl (81.0-99.0); MEAN CORPUSCULAR HGB 25.4 pg (27.0-31.0); MEAN CORPUSCULAR HGB CONC 30.4 g/dl (33.0-37.0); MEAN PLATELET VOLUME 13.6 fl (9.6-12.3); NEUT # 9.3 10*3/uL (2.3-7.9); NEUT % 77.2 % (47.0-73.0); PLATELET COUNT AUTOMATED 226 10*3/uL (130-400); RED CELL DISTRI WIDTH 15.6 % (0-14.5); WHITE BLOOD COUNT 12.1 10*3/uL (4.8-10.8)
[2018-09-30 07:07] LABS: CREATININE 1.59 mg/dL (0.55-1.02); POTASSIUM 4.1 mmol/L (3.5-5.1)
[2018-09-30] MEDS ORDERED: GLIPIZIDE10 M2 PO (07:36)
[2018-09-30] MEDS ORDERED: APRESOLINE25 MG PO (07:36)
[2018-09-30] MEDS ORDERED: AUGMENTIN 875875 MG PO (07:36)
[2018-09-30] MEDS ORDERED: Ipratropium Brom3 ML NEB (07:36)
[2018-09-30] MEDS ORDERED: LASIX40 MG PO (07:36)
[2018-09-30] MEDS ORDERED: PREDNISONE20 M1 PO (07:36)
[2018-09-30] MEDS ORDERED: PULMICORT RESP0.5 MG NEB (07:36)
[2018-09-30] MEDS ORDERED: CALCIUM CARBON200 MG PO (07:36)
[2018-09-30] MEDS ORDERED: Lantus SC (07:36)
[2018-09-30 08:00] VITALS: BP 135/50; BP 144/70
--- NOTE | 2018-09-30 08:52 | NUR ---
PULSE OX ON R/A AT REST 95%. B/P 144/70. HEART RATE 93. PT. AMBUALTED IN THE KUO ON R/A, PULSE OX DECREASED TO 85%, O2 APPLIED AT 2L,SAT INCREASING TO 93, CONTINUED WALK, PULSE OX ON 2L WITH AMBULATION 93% AND HEART RATE 113. PT. RETURNED TO ROOM, RESTING AT BEDSIDE WITH 2L O2. RECOVERY PULSE OX ON 2L 98 AND HEART RATE 93. RN AND DR. ADAMS NOTIFIED ORDER RECEIVED, I WILL CALL [employer] FOR SERVICE. B/P POST 153/50
--- NOTE | 2018-09-30 09:00 | NUR ---
Needle Straightener in to see patient. Discussed home health care services and she is agreeable. She does not want [facility]. When given a list of agencies she chose [facility]. Patient is discharged and waiting for her discharge paperwork.
--- NOTE | 2018-09-30 11:38 | NUR ---
Discharge instructions reviewed with patient/family. Patient receptive and verbalizes understanding. Follow-up care TO BE arranged BY PATIENT. Written instructions given to patient/family. CLUTCH INSPECTOR ACCOUNTED FOR AND PLACE IN BIN. IV CATH REMOVED, PRESSURE APPLIED, DRESING IN PLACE. SHAHNAZ CAPUTO
--- NOTE | 2018-09-30 12:07 | NUR ---
Faxed home health referral to [facility]
[2018-10-01 08:09] LABS: ADENOVIRUS Negative (Negative); INFLUENZA A Negative (Negative); INFLUENZA B Negative (Negative); METAPNEUMOVIRUS Positive (Negative); PARAINFLUENZA 1 Negative (Negative); PARAINFLUENZA 2 Negative (Negative); PARAINFLUENZA 3 Negative (Negative); RHINOVIRUS Negative (Negative); RSV A Negative (Negative); RSV B Negative (Negative)
[2018-11-07 09:11] LABS: ACID FAST CULTURE Negative (.)
== END 2018-09-30 11:38 | disposition home health service (06) | DRG 177 ==
LOC: ED 17:11 → 4E 19:07 → EDHOLD 19:07 → 4E 20:01
PROVIDERS: Internal Medicine Critical Care Medicine; Physician Assistant; ADMIT Internal Medicine
DX: J15.211 Pneumonia due to Methicillin susceptible Staphylococcus aureus (principal); J96.01 Acute respiratory failure with hypoxia; J96.02 Acute respiratory failure with hypercapnia; N39.0 Urinary tract infection, site not specified; N17.9 Acute kidney failure, unspecified; J44.1 Chronic obstructive pulmonary disease with (acute) exacerbation; J44.0 Chronic obstructive pulmonary disease with (acute) lower respiratory infection; J45.21 Mild intermittent asthma with (acute) exacerbation; I13.0 Hypertensive heart and chronic kidney disease with heart failure and stage 1 through stage 4 chronic kidney disease, or unspecified chronic kidney disease; I50.32 Chronic diastolic (congestive) heart failure; T17.590A Other foreign object in bronchus causing asphyxiation, initial encounter; Z68.42 Body mass index [BMI] 45.0-49.9, adult; E11.649 Type 2 diabetes mellitus with hypoglycemia without coma; B96.1 Klebsiella pneumoniae [K. pneumoniae] as the cause of diseases classified elsewhere; E66.8 Other obesity; N18.9 Chronic kidney disease, unspecified; Z96.641 Presence of right artificial hip joint; E11.22 Type 2 diabetes mellitus with diabetic chronic kidney disease; I27.20 Pulmonary hypertension, unspecified; E11.65 Type 2 diabetes mellitus with hyperglycemia; R62.7 Adult failure to thrive; T38.0X5A Adverse effect of glucocorticoids and synthetic analogues, initial encounter; X58.XXXA Exposure to other specified factors, initial encounter; Y93.89 Activity, other specified; Y99.8 Other external cause status; Y92.89 Other specified places as the place of occurrence of the external cause; Z88.1 Allergy status to other antibiotic agents; Z87.01 Personal history of pneumonia (recurrent)

== ENCOUNTER → 2018-11-14 | Outpatient (CLI) | payer OTHER ==
[~2018-11-14] MED LIST changes: +APRESOLINE25 MG PO; +AUGMENTIN 875875 MG PO; +CALCIUM CARBON200 MG PO; +GLIPIZIDE10 M2 PO; +Ipratropium Brom3 ML NEB; +LANTUS SOL100 UNIT/1 SQ; +LASIX80 MG PO; +Lantus SC; +PREDNISONE20 M1 PO; +PULMICORT RESP0.5 MG NEB
== END | disposition home or self-care (01) ==
LOC: RAD 13:17
DX: R06.02 Shortness of breath (principal); I11.0 Hypertensive heart disease with heart failure; I50.9 Heart failure, unspecified; E11.9 Type 2 diabetes mellitus without complications

== ENCOUNTER 2019-03-11 17:07 | Inpatient (IN) | payer OTHER ==
[~2019-03-11] VITALS: Ht 157.4 cm; Wt 95.4 kg
[2019-03-11] VITALS (9 sets, daily range): BP systolic 114–224; BP diastolic 42–86
[2019-03-11 17:44] LABS: BASO # 0.1 10*3/uL (0.0-0.1); BASO % 0.3 % (0.0-1.0); EOS # 0.3 10*3/uL (0.0-0.4); EOS % 1.7 % (1.0-4.0); HEMATOCRIT 33.7 % (37.0-47.0); HEMOGLOBIN 10.9 g/dl (12.0-16.0); LYMPH # 1.3 10*3/uL (1.3-4.4); LYMPH % 7.1 % (27.0-41.0); MEAN CELL VOLUME 84.5 fl (81.0-99.0); MEAN CORPUSCULAR HGB 27.3 pg (27.0-31.0); MEAN CORPUSCULAR HGB CONC 32.3 g/dl (33.0-37.0); MEAN PLATELET VOLUME 13.2 fl (9.6-12.3); MONO # 0.7 10*3/uL (0.1-1.0); NEUT # 15.3 10*3/uL (2.3-7.9); NEUT % 86.4 % (47.0-73.0); PLATELET COUNT AUTOMATED 251 10*3/uL (130-400); RED BLOOD COUNT 3.99 10*6/uL (4.10-5.10); RED CELL DISTRI WIDTH 14.6 % (0-14.5); WHITE BLOOD COUNT 17.7 10*3/uL (4.8-10.8)
[2019-03-11 17:56] LABS: ACT PARTIAL THROMBO TIME 25.2 SECONDS (20.0-32.1); INTERNATIONAL NORM RATIO 1.1 (2.0-3.5)
[2019-03-11 17:59] LABS: ALBUMIN 3.1 gm/dl (3.1-4.5); CREATININE 2.43 mg/dL (0.55-1.02); POTASSIUM 3.4 mmol/L (3.5-5.1); TOTAL PROTEIN 6.5 gm/dL (6.4-8.2); TROPONIN I 0.023 ng/ml (<0.045)
--- NOTE | 2019-03-11 18:15 | NUR ---
PT TO CT PT ALERT AIRWAY PATENT PULSE OX 97% RA RESP 17/MIN PT STATES HEADACHE RELIEVED
--- NOTE | 2019-03-11 19:14 | NUR ---
RECEIVED REPORT FROM PABLO ORELLANA
[2019-03-11 19:16] LABS: BILIRUBIN NEGATIVE (NEGATIVE); BLOOD NEGATIVE (NEGATIVE); CLARITY CLEAR (CLEAR); COLOR YELLOW (YELLOW); GLUCOSE NEGATIVE (NEGATIVE); KETONE NEGATIVE (NEGATIVE); LEUKO ESTERASE NEGATIVE (NEGATIVE); NITRITE NEGATIVE (NEGATIVE); PH 6.5 (5.0-9.0); UROBILINOGEN 0.2 E.U./dl (0.2-1.0)
[2019-03-11 19:23] LABS: BACTERIA 2+
[2019-03-11 19:24] LABS: CALCIUM OXALATE CRYSTALS 1+
--- NOTE | 2019-03-11 22:01 | NUR ---
ROOM BEING CLEANED FOR PATIENT ON 4TH FLOOR
--- NOTE | 2019-03-11 22:45 | NUR ---
A 69, admitted to 4E, under the services of Dr. GABRIEL WINSTON,ANDRES Pelaez with a diagnosis of HYPERTENSIVE EMERGENCY, IMPAIRED AMBULATION, R ANKLE SPRAIN, FALL ON/FROM OTHER STAIRS & STEPS INITIAL ENCOUNTER. Chief complaint is SYNCOPE, HEAD INJURY. Patient arrived via stretcher from ER. Monitor applied. Initial assessment completed. Vital signs taken and recorded. DR. GABRIEL WINSTON,ANDRES Pelaez notified of admission to the unit. Orders received. See assessment for past medical history, medications and allergies. Patient and/or family oriented to unit. [facility] visitation policy reviewed. Clothing/patient valuable form completed. SHAHLA NAVA
[2019-03-11] MEDS ORDERED: HYDRALAZINE HC100 MG PO (23:01)
[2019-03-11] MEDS ORDERED: TOUJEO MAX300 UNIT/1 SQ (23:03)
[2019-03-11] MEDS ORDERED: VITAMIN D5000 UNIT PO (23:04)
[2019-03-11] MEDS ORDERED: LOSARTAN POTASS50 M1 PO (23:04)
--- NOTE | 2019-03-11 23:07 | NUR ---
PT MED REC UPDATED PER PT RECALL. THERE ARE SOME MEDICATIONS LISTED IN CLAIMS HISTORY THAT PATIENT IS UNSURE OF. WILL NEED TO VERIFY MEDS IN AM WITH [facility].
--- NOTE | 2019-03-11 23:13 | NUR ---
NOTIFIED OF PT ARRIVAL ON FLOOR. NEW ADMISSION ORDERS RECEIVED. AWARE MED REC IS NOT COMPLETELY UP TO DATE PT DOES NOT KNOW ALL DOSES/FREQUENCIES OF MEDICATIONS.
[2019-03-12] VITALS (7 sets, daily range): BP systolic 104–152; BP diastolic 43–58
--- NOTE | 2019-03-12 00:30 | NUR ---
PO TYLENOL ADMINISTERED FOR C/O "SINUS HEADACHE" RATED 8/10. SCHEDULED IV ZOFRAN ALSO ADMINISTERED PER ORDER. WILL MONITOR EFFECTIVENESS. CALL LIGHT IN REACH. BED ALARM INTACT.
--- NOTE | 2019-03-12 03:05 | NUR ---
PT ASLEEP, EASILY AROUSABLE. NEURO CHECKS REMAIN NEGATIVE. PT DENIES ANY NEEDS. WILL MONITOR. CALL LIGHT IN REACH. BED ALARM INTACT.
--- NOTE | 2019-03-12 07:12 | NUR ---
SAMSON HERNÁNDEZ [id number] Please refer to the physician's history and physical for past medical history, comorbid conditions, and allergies. Diagnosis: HYPERTENSIVE IMPAIRED AMBULATION Mj Score: 17,AT RISK WOUND DESCRIPTIONS: Wound Number: 1 Location of the wound: left index finger Type of wound: laceration Thickness: Partial Size: 1.5cm x 0.1cm x 0.1cm Tunneling: none Undermining: none Sinus Tract: none Presence of Exudate: none Amount: None Color: Red Odor: None Periwound Skin Appearance: Normal Wound edges: approximated with 4 sutures Pain (associated with wound): none at time of assessment How does patient state this happened? pt stated this happened on a hook at the end of a railing. Wound Number: 2 Location of the wound: back of head Type of wound: laceration Thickness: Partial Size: 0.5cm x 0.5cm x 0.1cm Tunneling: none Undermining: none Sinus Tract: none Presence of Exudate: none Amount: none Color: Red Odor: None Periwound Skin Appearance: Normal Wound edges: approximated Pain (associated with wound): none at time of assessment How does patient state this happened? pt stated this happened on a hook at the end of a railing. Surface the patient is resting on: Isoflex SKIN PREVENTION RECOMMENDATION: 1. Pressure redistribution support surface as appropriate 2. Elevate heels 3. Remove boots/TEDS every shift and reapply 4. Head of bed 30 degrees as tolerated 5. Assess nutrition and hydration 6. Manage moisture 7. Avoid the use of containment devices while in bed 8. Use absorptive products on surfaces limit layers of linens on bed 9. Turn and reposition every 1-2 hours in bed and every 1 hour in chair as tolerated 10. Weight shifts every 15 minutes while up in chair 11. Offloading with pillows or device to keep heels elevated off bed 12. Monitor skin at least every shift 13. Inspect under medical devices twice a day WOUND TREATMENT RECOMMENDATIONS: Remove sutures in 10-14 days for area to left index finger Cleanse back of head with nss and apply bactroban bid and leave open to air.
--- NOTE | 2019-03-12 07:52 | NUR ---
NOTIFIED OF PT'S REQUEST TO BE TRANSFERRED FROM TO HER SERVICES. OKAY TO TRANSFER CARE PER .
--- NOTE | 2019-03-12 09:00 | NUR ---
Assistance Coordinator in to talk to patient. Patient states lives at home with her and her son. There are 12 steps in the home. Physician: Dr. Alyssa Ruiz Pharmacy: [facility] health services: none Patient's level of ADLs: MINIMAL ASSIST Patient has working utilities: yes DME: cane, nebulizer Follow-up physician's appointment after d/c: she prefers to make her own follow up appt after discharge Does patient want to access PORTAL?: no Discharge plan discussed with patient. She lives at home with her and her son. She is independent in her ADLs and ambulates with a cane. Discussed short term SNF and home health care services and she is not sure of her discharge needs at this time. She would like to see what therapy has to say. She states she has been having difficulty getting up off of her sofa from her legs being weak. Discharge plan undecided. will provide transportation on discharge. NATALIA GROVER
--- NOTE | 2019-03-12 09:11 | NUR ---
PHYSICAL THERAPY Nursing screen received and chart reviewed. Physical therapy referral received. Thank you. Zulema Cruz,PT,DPT.
--- NOTE | 2019-03-12 09:19 | NUR ---
Nursing screen received as well as OT orders. Chart has been reviewed. OT will follow up with patient for OT evaluation. Thank you for the referral. Kasey Anh, OTR/L
--- NOTE | 2019-03-12 10:00 | NUR ---
DR IROS NOTIFIED OF TRANSFER OF PHYSICIAN TO DR ADAMS
--- NOTE | 2019-03-12 14:30 | NUR ---
PHYSICAL THERAPY Physical therapy evaluation complete, 4E. Full evaluation/details to follow. Moderate complexity PT evaluation (12877) per chart review and evaluation. PT to progress transfers, gait, balance, endurance, and LE strength per POC. Recommend SNF at discharge. Thank you. Zulema Cruz,PT,DPT.
--- NOTE | 2019-03-12 14:31 | NUR ---
Occupational therapy orders received and OT eval completed and POC established in full on floor four. Patient precautions include fall risk, ww use, generalized weakness, dizziness, right ankle and back pain. Per OT eval and POC, OT recommends d/c to SNF. If patient refuses, home with SN, OT, and PT. Patient would benefit from continued OT treatment to maximize independence and strength for ADLs and functional transfers/mobility. Thank you for the referral. Kasey Ahn, OTR/L
--- NOTE | 2019-03-12 15:15 | NUR ---
DARRELL received notice the patient was requesting infromation on home modifications. DARRELL provied the patient with information for [facility]. Patient had no other questions at the moment. -DARRELL Singh
--- NOTE | 2019-03-12 23:05 | NUR ---
ASSUMED CARE OF PT AT THIS TIME. PT AWAKE IN BED, ALERT & ORIENTED X3. NEURO CHECK COMPLETE & NEGATIVE. PT STATES SHE HAS SOME MILD PAIN ASSOCIATED WITH LACERATION TO L POST HEAD & L INDEX FINGER. RN OFFERED TYLENOL PRN BUT PT DECLINES. STATES SHE DOES NOT NEED THEM AT THIS TIME. SHIFT ASSESSMENT COMPLETE. WILL MONITOR PT. BED LEFT LOCKED IN LOW POSITION, BED ALARM INTACT, CALL LIGHT IN REACH.
[2019-03-13] VITALS: BP 143/44
--- NOTE | 2019-03-13 05:42 | NUR ---
BSG 116. PT WISHING TO HAVE GLUCOTROL GIVEN CLOSER TO BREAKFAST. GLUCOTROL RETURNED TO PYXIS AT THIS TIME.
--- NOTE | 2019-03-13 05:44 | NUR ---
Patient stated she will follow up with for suture removal when she is discharged.
[2019-03-13 06:51] LABS: BASO % 0.4 % (0.0-1.0); EOS # 0.2 10*3/uL (0.0-0.4); HEMATOCRIT 27.7 % (37.0-47.0); HEMOGLOBIN 8.6 g/dl (12.0-16.0); LYMPH # 1.2 10*3/uL (1.3-4.4); LYMPH % 12.1 % (27.0-41.0); MEAN CELL VOLUME 86.3 fl (81.0-99.0); MEAN CORPUSCULAR HGB 26.8 pg (27.0-31.0); MEAN PLATELET VOLUME 13.5 fl (9.6-12.3); MONO # 0.7 10*3/uL (0.1-1.0); MONO % 7.2 % (3.0-9.0); NEUT # 7.7 10*3/uL (2.3-7.9); NEUT % 77.8 % (47.0-73.0); PLATELET COUNT AUTOMATED 227 10*3/uL (130-400); RED BLOOD COUNT 3.21 10*6/uL (4.10-5.10); RED CELL DISTRI WIDTH 14.9 % (0-14.5); WHITE BLOOD COUNT 9.9 10*3/uL (4.8-10.8)
[2019-03-13 07:06] LABS: CREATININE 3.52 mg/dL (0.55-1.02); POTASSIUM 3.3 mmol/L (3.5-5.1)
[2019-03-13 08:00] VITALS: BP 148/58; BP 160/50
[2019-03-13] MEDS ORDERED: HYDRALAZINE HC100 MG PO (08:35)
--- NOTE | 2019-03-13 08:38 | NUR ---
PHYSICAL THERAPY PATIENT IS EATING BREAKFAST AT THIS TIME. WILL CHECK BACK LATER. HARRIET COMBS TAXATION CONSULTANT
[2019-03-13] MEDS ORDERED: CIPRO500 MG PO (08:52)
--- NOTE | 2019-03-13 10:36 | NUR ---
Faxed home therapy order to [facility]
--- NOTE | 2019-03-13 10:38 | NUR ---
DISHARGE INSTRUCTIONS GIVEN TO THE PATIENTS AND SHE VERBALIZED UNDERSTANDING. FLU VACCINE GIVEN. WOUND PHOTOS TAKEN. SHE LEFT VIA WHEEL CHAIR ACCOMPANIED BY
--- NOTE | 2019-03-14 07:44 | NUR ---
PHYSICAL THERAPY CO-SIGN I approve of the Physical Therapy notes written above. NATALIA MARTINEZ PT,DPT
== END 2019-03-13 10:38 | disposition home or self-care (01) | DRG 605 ==
LOC: ED 17:07 → 4E 22:05
PROVIDERS: Nurse Practitioner Family; ADMIT Internal Medicine
PROC: 0HQGXZZ Repair Left Hand Skin, External Approach (ICD-10-PCS; principal; 2019-03-11)
DX: S01.01XA Laceration without foreign body of scalp, initial encounter (principal); I16.1 Hypertensive emergency; N18.4 Chronic kidney disease, stage 4 (severe); N39.0 Urinary tract infection, site not specified; S93.401A Sprain of unspecified ligament of right ankle, initial encounter; E87.6 Hypokalemia; I12.9 Hypertensive chronic kidney disease with stage 1 through stage 4 chronic kidney disease, or unspecified chronic kidney disease; M19.90 Unspecified osteoarthritis, unspecified site; S61.211A Laceration without foreign body of left index finger without damage to nail, initial encounter; W00.0XXA Fall on same level due to ice and snow, initial encounter; B96.89 Other specified bacterial agents as the cause of diseases classified elsewhere; R62.7 Adult failure to thrive; E11.22 Type 2 diabetes mellitus with diabetic chronic kidney disease; Z79.4 Long term (current) use of insulin; Y93.A3 Activity, aerobic and step exercise; Y92.89 Other specified places as the place of occurrence of the external cause; Y99.8 Other external cause status

== ENCOUNTER 2019-04-13 10:44 | Inpatient (IN) | payer OTHER ==
[2019-04-13] VITALS (7 sets, daily range): BP systolic 167–215; BP diastolic 50–80
[~2019-04-13] VITALS: Ht 157.5 cm; Wt 88.2 kg
--- NOTE | ~2019-04-13 | EKG ---
[place], [place] ELECTROCARDIOGRAM REPORT NAME: SAMSON HERNÁNDEZ UNIT #: [id number] ROOM: 408 DOCTOR: STEVAN DRAFT REPORT BIRTHDATE: [birth year] [facility] Test Date: 2019-04-13 Test Time: 10:47:02 Pat Name: SAMSON HERNÁNDEZ Department: Room: 408 Gender: F Contact Center Engineer: : 1950 Requested By: SUKHI WAY Order Number: [id number] Reading MD: Chris Murphy MD Measurements Intervals [place] Rate: 72 P: 76 NM: 171 QRS: 81 QRSD: 96 T: 27 QT: 389 QTc: 426 Interpretive Statements Sinus rhythm Borderline right axis deviation Abnormal R-wave progression, late transition Baseline wander in lead(s) V4 Compared to ECG 03/11/2019 17:59:41 ST (T wave) deviation no longer present Electronically Signed On 04-14-2019 13:15:07 PDT by Chris Murphy MD CM:EKGRPT:ELECTROCARDIOGRAM REPORT [id number] 1315 SUKHI ACUNA DRAFT REPORT SUKHI WAY DO
--- NOTE | ~2019-04-13 | EKG ---
[place], [place] ELECTROCARDIOGRAM REPORT NAME: SAMSON HERNÁNDEZ UNIT #: [id number] ROOM: 408 DOCTOR: STEVAN DRAFT REPORT BIRTHDATE: [birth year] [facility] Test Date: 2019-04-13 Test Time: 13:40:41 Pat Name: SAMSON HERNÁNDEZ Department: Room: 408 Gender: F Diesel Motor Mechanic: MARYCRUZ : 1950 Requested By: SUKHI WAY Order Number: [id number] Reading MD: Chris Murphy MD Measurements Intervals [place] Rate: 68 P: 65 CA: 179 QRS: 75 QRSD: 89 T: 48 QT: 405 QTc: 431 Interpretive Statements Sinus rhythm Baseline wander in lead(s) V2 Compared to ECG 03/11/2019 17:59:41 ST (T wave) deviation no longer present Electronically Signed On 04-14-2019 13:16:10 PDT by Chris Murphy MD CM:EKGRPT:ELECTROCARDIOGRAM REPORT [id number] 1316 SUKHI ACUNA DRAFT REPORT SUKHI WAY DO
--- NOTE | ~2019-04-13 | WRIGHTHP ---
[place], [place] PATIENT HISTORY AND PHYSICAL EXAM NAME: SAMSON HERNÁNDEZ [facility] #: [id number] UNIT #: [id number] ROOM: 408 DOCTOR: ANDRES RIOS MD BIRTHDATE: [birth year] DOS: 04/13/2019 HISTORY OF PRESENT ILLNESS: The patient is a 69-year-old female with a past medical history of: 1. Benign essential hypertension. 2. Major depression, recurrent. 3. Moderate congestive heart failure. 4. Uncontrolled type 2 diabetes mellitus. 5. Adult failure to thrive and poor appetite. 6. Recurrent urinary tract infections. 7. Right hip replacement. 8. Bilateral primary osteoarthritis of the knee joints. 9. Parietal scalp hematoma with small laceration from a fall in February 2019. 10. Chronic kidney disease stage 4. 11. Diabetic nephropathy. The patient presented to the Emergency Department with increasing chest congestion, cough, increased shortness of breath, dyspnea on exertion. The patient unable to walk up a flight of steps at home. The patient was recommended for admission for acute exacerbation of mild intermittent asthma, acute bronchitis, pneumonitis and adult failure to thrive. After admission, the patient says she is depressed, very tired, fatigued, poor appetite, feels sick all the time since February when she had a fall and she has not been feeling well. Her blood pressures are also not controlled. No chest pains or fainting episodes. REVIEW OF SYSTEMS: RESPIRATORY: Increasing shortness of breath. GASTROINTESTINAL: Poor appetite. No nausea or vomiting. CARDIOVASCULAR: No chest pains or palpitations. FAMILY HISTORY: Noncontributory. HOME MEDICATIONS: Hydralazine, losartan, insulin. ALLERGIES: Known allergies to CEFUROXIME, which causes anaphylaxis. PHYSICAL EXAMINATION: GENERAL: Alert, oriented x 3, in no visible distress, obesity with BMI of 35.5. VITAL SIGNS: Blood pressure 167/50, heart rate 62 beats per minute, breathing 20 times per minute, temperature 98.4 degrees Fahrenheit. HEENT AND NECK: Extraocular movements are intact. Sclerae are anicteric. Oral mucosa is moist and clean. No obvious facial weakness. Neck is supple without any lymphadenopathy. No thyromegaly. No JVD. No carotid arterial bruits. LUNGS: Clear to auscultation. No wheezing. No rhonchi. CARDIOVASCULAR SYSTEM: Heart rate is regular in rate and rhythm. S1 and S2 normally audible. No significant murmur or any other abnormal cardiac sounds. ABDOMEN: Soft, nontender. No obvious organomegaly. Bowel sounds are present. [place], [place] PATIENT HISTORY AND PHYSICAL EXAM NAME: SAMSON HERNÁNDEZ [facility] #: [id number] UNIT #: [id number] ROOM: [facility] DOCTOR: ANDRES RIOS MD BIRTHDATE: [birth year] No obvious herniation. EXTREMITIES: Without significant cyanosis or edema. Warm to touch. CENTRAL NERVOUS SYSTEM: Alert and oriented x 3. Cranial nerves II-XII are intact. Speech is normal. The patient is able to move all extremities. Normal muscle strength. Deep tendon reflexes are equal on both sides. Plantars were downgoing. LABORATORY DATA: BUN and creatinine 31 and 2.5. Hemoglobin 9.9. Albumin level low at 2.7. IMPRESSION: 1. The patient with acute exacerbation of mild intermittent asthma with increased shortness of breath and wheezing, to be treated with bronchodilators, oxygen and antibiotic. Sputum cultures to be performed. 2. Advanced adult failure to thrive and dyspnea on exertion. The patient is being started on physical therapy and will be sent for rehabilitation. 3. Poor appetite along with depression, to be treated with Remeron and Zoloft. 4. Major depression, recurrent, moderate. The patient started on Zoloft and Remeron, which should also help her with appetite. 5. Moderate protein-calorie malnutrition with albumin level of 2.7. The patient to follow with Dietary and started on appetite stimulants. 6. Uncontrolled type 2 diabetes mellitus. I continued her insulin and start her on no concentrated sweet diet and glimepiride. 7. Benign essential hypertension, uncontrolled. I stopped her hydralazine, instead started on Norvasc and continued her losartan and her blood pressures will be monitored closely. ANDRES RIOS MD CM:HISPHYS:PATIENT HISTORY AND PHYSICAL EXAMINATION 57 [phone] ANDRES RIOS MD 04/13/191836 interface
--- NOTE | ~2019-04-13 | DS ---
[place], [place] DISCHARGE SUMMARY NAME: SAMSON HENRÁNDEZ UNIT #: [id number] ROOM: 408 DOCTOR: GABRIEL WINSTONANDRES Pelaez BIRTHDATE: [birth year] DOS: 04/15/2019 DISCHARGE DIAGNOSES: 1. Urinary tract infection with Escherichia coli. 2. Uncontrolled benign essential hypertension. 3. Uncontrolled type 2 diabetes mellitus. 4. Obesity, BMI of 35.5. 5. Major depression, recurrent, moderate. 6. Acute exacerbation of chronic obstructive pulmonary disease. 7. Adult failure to thrive, ambulatory dysfunction and dyspnea on exertion with fatigue. 8. Poor appetite and moderate protein-calorie malnutrition with an albumin level of 2.7. 9. History of congestive heart failure. 10. Right hip replacement. 11. Bilateral primary osteoarthritis of the knees. 12. History of parietal scalp hematoma with small laceration from a fall in February 2019. 13. Chronic kidney disease stage 4 and diabetic nephropathy. HOSPITAL COURSE: The patient presented to the Emergency Department very depressed, fatigued, dyspnea on exertion, unable to walk upstairs, poor appetite, malnourished, short of breath with uncontrolled blood sugars and hypertension. The patient said she was feeling very bad and down in the dumps. Major depression, recurrent, moderate, treated and now much improved with Zoloft. Benign essential hypertension. Blood pressure management changed to Norvasc, atenolol, and the patient continued on losartan because of her diabetes. Blood pressures are much better controlled. Acute over chronic congestive heart failure, improved with treatment and shortness of breath has improved. Moderate protein-calorie malnutrition with poor appetite and albumin level of 2.7 only. The patient worked with Dietary and her appetite has improved with present treatment. Uncontrolled type 2 diabetes mellitus. The patient put on glimepiride and no concentrated sweet diet. The patient's blood sugars have normalized and her insulin has been stopped. Diabetic nephropathy with chronic stage 4 kidney disease, stable. Urinary tract infection with E. coli, treated. Now, the patient going home with Bactrim-DS. Chronic persistent diarrhea, treated with cholestyramine. Diarrhea has stopped and the patient going home with cholestyramine prescription. [place], [place] DISCHARGE SUMMARY NAME: SAMSON HERNÁNDEZ UNIT #: [id number] ROOM: 408 DOCTOR: ANDRES RIOS MD BIRTHDATE: [birth year] Adult failure to thrive with dyspnea on exertion and difficulty with walking up steps. The patient started on physical therapy and the patient says she will continue physical therapy as an outpatient at [facility]. Poor appetite and malnutrition. The patient is eating much better now with present treatment. I had put her on a small dose of mirtazapine, which should be continued until the patient is stabilized and her moods are better along with Zoloft. ANDRES RIOS MD CM:ROLY [id number] ANDRES RIOS MD 04/15/19 1109 interface
--- NOTE | ~2019-04-13 | PR ---
[place], [place] PROGRESS NOTE NAME: SAMSON HERNÁNDEZ UNIT #: [id number] ROOM: 408 DOCTOR: ANDRES RIOS MD BIRTHDATE: [birth year] DOS: 04/14/2019 SUBJECTIVE: The patient is feeling much better and wanting to go home. OBJECTIVE: GENERAL APPEARANCE: The patient is alert and oriented x 3, in no visible distress. Obesity with BMI of 35.5. VITAL SIGNS: Blood pressure 176/62, heart rate 81 beats per minute, breathing 20 times per minute, temperature 98.2 degrees Fahrenheit. HEENT AND NECK: Exam within normal limits. CARDIOVASCULAR SYSTEM: Heart rate is regular in rate and rhythm. S1 and S2 normally audible. LUNGS: Clear to auscultation. ABDOMEN: Soft, nontender. No obvious organomegaly. Bowel sounds are present. EXTREMITIES: Without significant cyanosis or edema. IMPRESSION: 1. The patient with benign essential hypertension with persistently elevated blood pressures. I am adding atenolol to the treatment and I will try to keep her until tomorrow to normalize her blood pressures before her discharge. 2. Acute exacerbation of chronic obstructive pulmonary disease, improving with treatment with bronchodilators, oxygen and antibiotic. 3. Advance adult failure to thrive and dyspnea on exertion. The patient is working in physical therapy. 4. Poor appetite along with depression, now treated with Remeron and Zoloft. Appetite and mood appears to be improving. 5. Uncontrolled type 2 diabetes mellitus. The patient is being treated and followed closely. The patient is on insulin and now glimepiride. 6. Moderate protein-calorie malnutrition with albumin level of 2.7. The patient is working with dietary and also on appetite stimulants now. 7. Advanced adult failure to thrive. We are taking fall and bedsore precautions and working with physical therapy working on her depression and appetite. 8. Urinary tract infection with heavy gram-negative bacilli, being treated with Levaquin. Final urine culture is still pending. [place], [place] PROGRESS NOTE NAME: SAMSON HERNÁNDEZ UNIT #: [id number] ROOM: 408 DOCTOR: ANDRES RIOS MD BIRTHDATE: [birth year] ADNRES RIOS MD CM:CHRIS 1500 ANDRES RIOS MD 04/15/19 0046 interface
--- NOTE | ~2019-04-13 | EKG ---
[place], [place] ELECTROCARDIOGRAM REPORT NAME: SAMSON HERNÁNDEZ UNIT #: [id number] ROOM: 408 DOCTOR: STEVAN DRAFT REPORT BIRTHDATE: [birth year] [facility] Test Date: 2019-04-13 Test Time: 16:28:42 Pat Name: SAMSON HERNÁNDEZ Department: Room: 408 Gender: F Jacquard Card Lacer: : 1950 Requested By: SUKHI WAY Order Number: [id number] Reading MD: Chris Murphy MD Measurements Intervals [place] Rate: 69 P: 76 RI: 177 QRS: 74 QRSD: 89 T: 70 QT: 454 QTc: 487 Interpretive Statements Sinus rhythm Anteroseptal infarct, old Compared to ECG 03/11/2019 17:59:41 Myocardial infarct finding now present ST (T wave) deviation no longer present Electronically Signed On 04-14-2019 13:16:54 PDT by Chris Murphy MD CM:EKGRPT:ELECTROCARDIOGRAM REPORT [id number] 1316 SUKHI ACUNA DRAFT REPORT SUKHI WAY DO
[~2019-04-13 10:44] MED LIST changes: +CIPRO500 MG PO; +HYDRALAZINE HC100 MG PO; +LOSARTAN POTASS50 M1 PO; +TOUJEO MAX300 UNIT/1 SQ; +VITAMIN D5000 UNIT PO
[2019-04-13 11:20] LABS: BASO % 0.5 % (0.0-1.0); EOS % 0.6 % (1.0-4.0); HEMATOCRIT 31.5 % (37.0-47.0); HEMOGLOBIN 9.9 g/dl (12.0-16.0); LYMPH # 0.9 10*3/uL (1.3-4.4); LYMPH % 15.2 % (27.0-41.0); MEAN CELL VOLUME 84.9 fl (81.0-99.0); MEAN CORPUSCULAR HGB 26.7 pg (27.0-31.0); MEAN CORPUSCULAR HGB CONC 31.4 g/dl (33.0-37.0); MONO # 0.7 10*3/uL (0.1-1.0); MONO % 10.9 % (3.0-9.0); NEUT # 4.5 10*3/uL (2.3-7.9); NEUT % 72.5 % (47.0-73.0); PLATELET COUNT AUTOMATED 200 10*3/uL (130-400); RED BLOOD COUNT 3.71 10*6/uL (4.10-5.10); RED CELL DISTRI WIDTH 14.2 % (0-14.5); WHITE BLOOD COUNT 6.2 10*3/uL (4.8-10.8)
[2019-04-13 11:33] LABS: ALBUMIN 2.7 gm/dl (3.1-4.5); CREATININE 2.51 mg/dL (0.55-1.02); POTASSIUM 3.5 mmol/L (3.5-5.1); TOTAL PROTEIN 6.4 gm/dL (6.4-8.2)
[2019-04-13 11:34] LABS: TROPONIN I 0.019 ng/ml (<0.045)
[2019-04-13 11:38] LABS: ACT PARTIAL THROMBO TIME 28.4 SECONDS (20.0-32.1); INTERNATIONAL NORM RATIO 1.1 (2.0-3.5)
[2019-04-13 12:07] LABS: BILIRUBIN NEGATIVE (NEGATIVE); BLOOD TRACE-LYSED (NEGATIVE); CLARITY CLOUDY (CLEAR); COLOR YELLOW (YELLOW); GLUCOSE TRACE (NEGATIVE); KETONE NEGATIVE (NEGATIVE); LEUKO ESTERASE 1+ (NEGATIVE); NITRITE NEGATIVE (NEGATIVE); PH 6.5 (5.0-9.0); UROBILINOGEN 0.2 E.U./dl (0.2-1.0)
[2019-04-13 12:15] LABS: WBC TNTC wbc/hpf (0-5)
[2019-04-13 12:16] LABS: BACTERIA 4+
[2019-04-14] VITALS: BP 155/59
[2019-04-14 08:00] VITALS: BP 186/64
[2019-04-14 12:00] VITALS: BP 176/62
[2019-04-14 16:00] VITALS: BP 158/51
[2019-04-14 20:00] VITALS: BP 161/47
[2019-04-15] VITALS: BP 160/46
[2019-04-15] MEDS ORDERED: TENORMIN25 MG PO (10:24)
[2019-04-15] MEDS ORDERED: SERTRALINE HYDR50 MG PO (10:24)
[2019-04-15] MEDS ORDERED: AMLODIPINE BESY10 MG PO (10:24)
[2019-04-15] MEDS ORDERED: QUESTRAN LIGHT4 GM PO (10:24)
[2019-04-15] MEDS ORDERED: SEPTDS PO (10:25)
[2019-04-15] MEDS ORDERED: GLIMEPIRIDE4 M1 PO (10:29)
[2019-04-15] MEDS ORDERED: MIRTAZAPINE15 M2 PO (10:41)
== END 2019-04-15 12:30 | disposition home or self-care (01) | DRG 190 ==
LOC: ED 10:44 → 4E 12:35 → EDHOLD 12:35 → 4E 12:51
PROVIDERS: Emergency Medicine; ADMIT Internal Medicine
DX: J44.0 Chronic obstructive pulmonary disease with (acute) lower respiratory infection (principal); J18.9 Pneumonia, unspecified organism; I13.0 Hypertensive heart and chronic kidney disease with heart failure and stage 1 through stage 4 chronic kidney disease, or unspecified chronic kidney disease; E44.0 Moderate protein-calorie malnutrition; N39.0 Urinary tract infection, site not specified; F33.1 Major depressive disorder, recurrent, moderate; N18.4 Chronic kidney disease, stage 4 (severe); J45.21 Mild intermittent asthma with (acute) exacerbation; J44.1 Chronic obstructive pulmonary disease with (acute) exacerbation; B96.20 Unspecified Escherichia coli [E. coli] as the cause of diseases classified elsewhere; E66.9 Obesity, unspecified; R62.7 Adult failure to thrive; I50.9 Heart failure, unspecified; Z96.641 Presence of right artificial hip joint; M17.0 Bilateral primary osteoarthritis of knee; E11.22 Type 2 diabetes mellitus with diabetic chronic kidney disease; K52.9 Noninfective gastroenteritis and colitis, unspecified; J20.9 Acute bronchitis, unspecified; Z91.81 History of falling; Z88.1 Allergy status to other antibiotic agents; Z68.35 Body mass index [BMI] 35.0-35.9, adult

== ENCOUNTER → 2019-04-23 | Outpatient (CLI) | payer OTHER ==
[~2019-04-23] MED LIST changes: +AMLODIPINE BESY10 MG PO; +AUGMENTIN 875-875 MG PO; +GLIMEPIRIDE4 M1 PO; +MIRTAZAPINE15 M2 PO; +QUESTRAN LIGHT4 GM PO; +SEPTDS PO; +SERTRALINE HYDR50 MG PO; +TENORMIN25 MG PO; +ZOLOFT50 MG PO
== END | disposition home or self-care (01) ==
LOC: US 11:18
DX: R60.0 Localized edema (principal)

== ENCOUNTER 2019-04-28 14:19 | Inpatient (IN) | payer OTHER ==
[~2019-04-28] VITALS: Ht 157.5 cm; Wt 100.0 kg
[~2019-04-28 14:19] MED LIST changes: -AUGMENTIN 875-875 MG PO; -ZOLOFT50 MG PO
[2019-04-28 14:28] VITALS: BP 137/51
--- NOTE | 2019-04-28 14:28 | NUR ---
A 69, admitted to 5E, under the services of DELIA De Jesus MD with a diagnosis of ACUTE RENAL FAILURE. Chief complaint is SENT IN A DIRECT ADMISSION FROM OFFICE. Patient arrived via wheel chair from ER. Monitor applied. Initial assessment completed. Vital signs taken and recorded. DELIA DE JESUS MD notified of admission to the unit. Orders received. See assessment for past medical history, medications and allergies. Patient and/or family oriented to unit. Clothing/patient valuable form completed. CARLA BAKER
[2019-04-28] MEDS ORDERED: ZOLOFT50 MG PO (15:19)
[2019-04-28 15:58] LABS: CREATININE 5.38 mg/dL (0.55-1.02); POTASSIUM 5.2 mmol/L (3.5-5.1)
[2019-04-28 16:00] VITALS: BP 112/53
[2019-04-28 20:00] VITALS: BP 137/49
[2019-04-29] VITALS: BP 138/46
--- NOTE | 2019-04-29 02:20 | NUR ---
PT LYING IN BED SLEEPING. RESPIRATIONS EASY, NONLABORED. NO SIGNS OF DISTRESS NOTED. CALL LIGHT WIHTIN REACH.
[2019-04-29 06:06] LABS: BASO % 0.4 % (0.0-1.0); EOS # 0.3 10*3/uL (0.0-0.4); EOS % 2.5 % (1.0-4.0); HEMATOCRIT 26.2 % (37.0-47.0); HEMOGLOBIN 8.3 g/dl (12.0-16.0); LYMPH # 1.9 10*3/uL (1.3-4.4); LYMPH % 18.6 % (27.0-41.0); MEAN CELL VOLUME 85.6 fl (81.0-99.0); MEAN CORPUSCULAR HGB 27.1 pg (27.0-31.0); MEAN CORPUSCULAR HGB CONC 31.7 g/dl (33.0-37.0); MONO # 0.7 10*3/uL (0.1-1.0); MONO % 7.1 % (3.0-9.0); NEUT # 7.1 10*3/uL (2.3-7.9); NEUT % 70.9 % (47.0-73.0); PLATELET COUNT AUTOMATED 221 10*3/uL (130-400); RED BLOOD COUNT 3.06 10*6/uL (4.10-5.10); RED CELL DISTRI WIDTH 15.2 % (0-14.5)
[2019-04-29 06:08] LABS: ALBUMIN 2.5 gm/dl (3.1-4.5); CREATININE 4.86 mg/dL (0.55-1.02); PHOSPHOROUS 4.8 mg/dL (2.5-4.9)
[2019-04-29 06:11] LABS: POTASSIUM 4.1 mmol/L (3.5-5.1)
[2019-04-29 08:00] VITALS: BP 132/46
--- NOTE | 2019-04-29 10:30 | NUR ---
Centrifugal Machine Tender in to see patient. She is currently not in her room. Will follow up at a later time.
--- NOTE | 2019-04-29 11:34 | NUR ---
Patient not available for Occupational Therapy evaluation as she is out of her room for an MRI. Kaitlyn Grover OTR/l
--- NOTE | 2019-04-29 11:34 | NUR ---
PHYSICAL THERAPY Pt at MRI. Will attempt at later time. Thank you Christa Hoang, PT, DPT
[2019-04-29 12:00] VITALS: BP 130/46
--- NOTE | 2019-04-29 13:43 | NUR ---
PHYSICAL THERAPY Physical therapy evaluation completed, 5E. Full details to follow. Moderate complexity determined after evaluation/chart review;49330. Pt is very unsteady with ambulation using std cane and was unwilling to use a FWW despite heavy encouragement. Pt requiring max assistance with management of IV pole and highly encouraged to call for nursing assistance if ambulating to/from bathroom. Pt also expressing continual difficulty in climbing stairs despite having home health services. PT to work on balance, gait stability/quality, safety with ambulation using FWW, and strength. Recommending SNF or home with 24 hour assistance due to safety concerns and fall risk presented on this date. Thank you Christa Hoang, PT, DPT
[2019-04-29 15:27] LABS: BILIRUBIN NEGATIVE (NEGATIVE); BLOOD TRACE-INTACT (NEGATIVE); CLARITY CLEAR (CLEAR); COLOR YELLOW (YELLOW); GLUCOSE TRACE (NEGATIVE); KETONE NEGATIVE (NEGATIVE); LEUKO ESTERASE 1+ (NEGATIVE); NITRITE NEGATIVE (NEGATIVE); PH 5.5 (5.0-9.0); UROBILINOGEN 0.2 E.U./dl (0.2-1.0)
[2019-04-29 15:34] LABS: BACTERIA 2+; RBC 0-2 rbc/hpf (0-2); WBC 31-40 wbc/hpf (0-5)
--- NOTE | 2019-04-29 15:38 | NUR ---
Disease Case Manager in to talk to patient. Patient states lives at home with her and her son. There are 12 steps in the home. Physician: Dr. Alyssa Ruiz Pharmacy: [facility] health services: [facility] currently and would to resume on discharge Patient's level of ADLs: MINIMAL ASSIST Patient has working utilities: yes DME: cane, nebulizer Follow-up physician's appointment after d/c: she prefers to make her own follow up appt after discharge Does patient want to access PORTAL?: no Discharge plan discussed with patient. She lives at home with her and her son. She is independent in her ADLs and ambulates with a cane. She states he is having difficulty with steps. She currently has [facility] at home and would like to resume those services. at bedside. When medically stable she will be discharged to home with the resumption of her [facility] services. Her will provide transportation on discharge. NATALIA GROVER
[2019-04-29 16:00] VITALS: BP 138/49
[2019-04-29 20:00] VITALS: BP 137/52
[2019-04-30] VITALS: BP 125/48
--- NOTE | 2019-04-30 02:58 | NUR ---
Patient lying in bed resting. . Respirations relaxed and easy. Siderails up . [place] on. No complaints at this time. Call light within reach. GERMAIN ROBERTSON
--- NOTE | 2019-04-30 03:04 | NUR ---
24 HR chart check completed.
[2019-04-30 07:06] LABS: ALBUMIN 2.5 gm/dl (3.1-4.5); CREATININE 3.91 mg/dL (0.55-1.02); PHOSPHOROUS 4.5 mg/dL (2.5-4.9); POTASSIUM 3.9 mmol/L (3.5-5.1)
[2019-04-30 08:00] VITALS: BP 147/57
--- NOTE | 2019-04-30 08:50 | NUR ---
Occupational Therapy evaluation completed on 5 with full eval to follow. Precautions include fall risk, impulsive, cane use,IV UE,moderate complexity level 39248 via chart review, testing and evaluation. REcommend OT per pOC and home with home health OT,PT,SN. Thank you. Kaitlyn Grover OTR/l
[2019-04-30 09:04] LABS: CREATININE,URINE 103.4 mg/dL (Not Estab.); MICRO ALBUMIN/CRE RATIO 887.7 (0.0-30.0)
[2019-04-30 12:00] VITALS: BP 140/51
--- NOTE | 2019-04-30 12:52 | NUR ---
OT NOTE Attempted to see pt this P.M. for OT session and upon arrival pt was eating her lunch. Will check back at a later time/date and continue with POC as able. DEMETRI Jay/Robby
--- NOTE | 2019-04-30 13:06 | NUR ---
In Flight Technician in to see patient. Discussed her steps at home which she states she is having difficulty with. Given information for [facility] and [facility]. She states she will reach out to them. When medically stable she will be discharged to home with the resumption of her [facility] services. BUN/Cr remain elevated but trending down. She is on IVFs.
[2019-04-30 16:00] VITALS: BP 139/48
[2019-04-30 17:55] LABS: BACTERIA 1+; RBC 0-2 rbc/hpf (0-2)
[2019-04-30 17:58] LABS: COARSE GRANULAR CAST 0-2
[2019-04-30 20:00] VITALS: BP 138/39
--- NOTE | 2019-04-30 20:38 | NUR ---
SPOKE WITH DR ADAMS REGARDING PT BLOOD SUGAR OF 456. STATES TO GIVE 25 REGULAR INSULIN SUBCUTANEOUS.
--- NOTE | 2019-04-30 23:42 | NUR ---
24 HOUR CHART CHECK COMPLETE.
[2019-05-01] VITALS: BP 134/50
[2019-05-01 06:31] LABS: ALBUMIN 2.4 gm/dl (3.1-4.5); CREATININE 3.3 mg/dL (0.55-1.02); PHOSPHOROUS 3.6 mg/dL (2.5-4.9); POTASSIUM 3.7 mmol/L (3.5-5.1)
--- NOTE | 2019-05-01 07:18 | NUR ---
PT C/O DIARRHEA THIS AM.
[2019-05-01 08:00] VITALS: BP 147/35
--- NOTE | 2019-05-01 08:30 | NUR ---
DR. ADAMS HAS ROUNDED AND PATIENT IS GOING TO BE DISCHARGED.
[2019-05-01] MEDS ORDERED: AUGMENTIN 875-875 MG PO (08:51)
--- NOTE | 2019-05-01 09:00 | NUR ---
Director Alumni Relations in to see patient. She is sitting on the edge of her bed without distress noted. No new needs or request at this time. She is awaiting her discharge. She will resume her [facility] upon discharge to home.
--- NOTE | 2019-05-01 10:06 | NUR ---
PHYSICAL THERAPY Patient was waiting for her nurse when she was approached for therapy session this morning. Will check back later. EAR OLIVA COMBS WOOD CUT ENGRAVER
--- NOTE | 2019-05-01 10:07 | NUR ---
Faxed home health resumption order to [facility]
--- NOTE | 2019-05-01 11:01 | NUR ---
PATIENT DISCHARGED TO HOME.
--- NOTE | 2019-05-01 15:29 | NUR ---
OCCUPATIONAL THERAPY CO-SIGN I approve of the Occupational Therapy notes written above. HEIDY FERNANDEZ OTR/Robby
--- NOTE | 2019-05-02 08:08 | NUR ---
PHYSICAL THERAPY CO-SIGN I approve of the Physical Therapy notes written above. Huong Montes De Oca PT
== END 2019-05-01 11:01 | disposition home or self-care (01) | DRG 689 ==
LOC: 5E 14:19
PROVIDERS: Internal Medicine Nephrology; ADMIT Internal Medicine
DX: N39.0 Urinary tract infection, site not specified (principal); N17.0 Acute kidney failure with tubular necrosis; E87.1 Hypo-osmolality and hyponatremia; F32.0 Major depressive disorder, single episode, mild; I13.0 Hypertensive heart and chronic kidney disease with heart failure and stage 1 through stage 4 chronic kidney disease, or unspecified chronic kidney disease; I50.32 Chronic diastolic (congestive) heart failure; N18.4 Chronic kidney disease, stage 4 (severe); N12 Tubulo-interstitial nephritis, not specified as acute or chronic; E87.5 Hyperkalemia; B96.89 Other specified bacterial agents as the cause of diseases classified elsewhere; M17.0 Bilateral primary osteoarthritis of knee; M16.12 Unilateral primary osteoarthritis, left hip; I95.9 Hypotension, unspecified; G89.29 Other chronic pain; M51.16 Intervertebral disc disorders with radiculopathy, lumbar region; E10.22 Type 1 diabetes mellitus with diabetic chronic kidney disease; Z96.641 Presence of right artificial hip joint; M48.061 Spinal stenosis, lumbar region without neurogenic claudication; J44.9 Chronic obstructive pulmonary disease, unspecified; R62.7 Adult failure to thrive; T36.8X5A Adverse effect of other systemic antibiotics, initial encounter; Z91.81 History of falling; Z87.440 Personal history of urinary (tract) infections; Z88.1 Allergy status to other antibiotic agents; Z79.899 Other long term (current) drug therapy; Y92.89 Other specified places as the place of occurrence of the external cause; Z68.38 Body mass index [BMI] 38.0-38.9, adult

== ENCOUNTER 2019-06-18 16:17 | Inpatient (IN) | payer OTHER ==
[~2019-06-18] VITALS: Ht 157.4 cm; Wt 102.1 kg
[~2019-06-18 16:17] MED LIST changes: +AUGMENTIN 875-875 MG PO; +ZOLOFT50 MG PO
[2019-06-18 16:21] VITALS: BP 183/79
[2019-06-18 16:52] LABS: BASO # 0.1 10*3/uL (0.0-0.1); BASO % 0.4 % (0.0-1.0); EOS # 0.3 10*3/uL (0.0-0.4); EOS % 2.1 % (1.0-4.0); HEMATOCRIT 33.6 % (37.0-47.0); HEMOGLOBIN 10.4 g/dl (12.0-16.0); LYMPH # 1.5 10*3/uL (1.3-4.4); MEAN CELL VOLUME 85.5 fl (81.0-99.0); MEAN CORPUSCULAR HGB 26.5 pg (27.0-31.0); MONO # 0.8 10*3/uL (0.1-1.0); MONO % 5.7 % (3.0-9.0); NEUT # 10.6 10*3/uL (2.3-7.9); NEUT % 80.3 % (47.0-73.0); PLATELET COUNT AUTOMATED 328 10*3/uL (130-400); RED BLOOD COUNT 3.93 10*6/uL (4.10-5.10); RED CELL DISTRI WIDTH 16.5 % (0-14.5); WHITE BLOOD COUNT 13.2 10*3/uL (4.8-10.8)
[2019-06-18 17:02] LABS: ACT PARTIAL THROMBO TIME 27.3 SECONDS (20.0-32.1); INTERNATIONAL NORM RATIO 1.1 (2.0-3.5)
[2019-06-18 17:07] LABS: ALBUMIN 2.9 gm/dl (3.1-4.5); ALKALINE PHOSPHATASE 198 U/L (45-117); BUN 19 mg/dl (7-24); CHLORIDE 104 mmol/L (98-107); CREATININE 2.52 mg/dL (0.55-1.02); POTASSIUM 3.2 mmol/L (3.5-5.1); SGOT/AST 14 IU/L (3-35); SGPT/ALT 13 U/L (12-78); SODIUM 140 mmol/L (136-145)
[2019-06-18 17:15] LABS: TROPONIN I < 0.015 ng/ml (<0.045)
[2019-06-18 17:27] VITALS: BP 179/69
[2019-06-18 17:27] LABS: VENOUS BLOOD GAS O2 SAT 91.5 % (40-85); VENOUS PH 7.344 (7.32-7.43)
[2019-06-18 18:36] LABS: BILIRUBIN NEGATIVE (NEGATIVE); BLOOD 2+ (NEGATIVE); CLARITY SL CLOUDY (CLEAR); COLOR YELLOW (YELLOW); GLUCOSE 1+ (NEGATIVE); KETONE NEGATIVE (NEGATIVE); LEUKO ESTERASE NEGATIVE (NEGATIVE); NITRITE NEGATIVE (NEGATIVE); PH 5.5 (5.0-9.0); SPECIFIC GRAVITY >= 1.030 (1.005-1.030); UROBILINOGEN 0.2 E.U./dl (0.2-1.0)
[2019-06-18 18:45] LABS: BACTERIA 4+
[2019-06-18 18:46] LABS: WBC 31-40 wbc/hpf (0-5)
[2019-06-18 18:48] LABS: FINE GRANULAR CAST 0-2; HYALINE CAST 0-2
[2019-06-18 18:52] VITALS: BP 179/69
[2019-06-18 19:45] VITALS: BP 162/78
[2019-06-18 19:56] VITALS: BP 179/66
[2019-06-19] VITALS: BP 151/59
[2019-06-19 07:24] LABS: CREATININE 2.54 mg/dL (0.55-1.02); POTASSIUM 3.1 mmol/L (3.5-5.1)
[2019-06-19 08:01] VITALS: BP 152/68
[2019-06-19 12:00] VITALS: BP 154/50
[2019-06-19 16:00] VITALS: BP 152/51
[2019-06-19 20:00] VITALS: BP 138/53
[2019-06-20] VITALS: BP 141/54
[2019-06-20 06:12] LABS: ALBUMIN 2.5 gm/dl (3.1-4.5); CREATININE 2.7 mg/dL (0.55-1.02); PHOSPHOROUS 4.2 mg/dL (2.5-4.9); POTASSIUM 3.8 mmol/L (3.5-5.1); TOTAL PROTEIN 6.2 gm/dL (6.4-8.2)
[2019-06-20 08:55] VITALS: BP 152/74
[2019-06-20 12:00] VITALS: BP 151/49
[2019-06-20 16:00] VITALS: BP 111/63
[2019-06-20 20:00] VITALS: BP 155/75
[2019-06-21] VITALS: BP 152/72
[2019-06-21 08:00] VITALS: BP 160/70
[2019-06-21 10:03] LABS: CREATININE 2.64 mg/dL (0.55-1.02)
[2019-06-21 12:00] VITALS: BP 170/62
[2019-06-21 16:00] VITALS: BP 157/55
[2019-06-21 20:00] VITALS: BP 145/50
[2019-06-22] VITALS: BP 172/66
[2019-06-22 10:23] LABS: HEMATOCRIT 28.2 % (37.0-47.0); HEMOGLOBIN 8.6 g/dl (12.0-16.0)
[2019-06-22 12:00] VITALS: BP 144/52
[2019-06-22 16:00] VITALS: BP 149/54
[2019-06-22 20:00] VITALS: BP 173/64
[2019-06-23] VITALS: BP 135/65
[2019-06-23 07:11] LABS: BASO % 0.3 % (0.0-1.0); EOS # 0.3 10*3/uL (0.0-0.4); EOS % 2.5 % (1.0-4.0); HEMATOCRIT 30.1 % (37.0-47.0); HEMOGLOBIN 9.1 g/dl (12.0-16.0); LYMPH # 1.1 10*3/uL (1.3-4.4); LYMPH % 9.2 % (27.0-41.0); MEAN CELL VOLUME 86.5 fl (81.0-99.0); MEAN CORPUSCULAR HGB 26.1 pg (27.0-31.0); MEAN CORPUSCULAR HGB CONC 30.2 g/dl (33.0-37.0); MEAN PLATELET VOLUME 13.4 fl (9.6-12.3); MONO % 8.6 % (3.0-9.0); NEUT % 78.8 % (47.0-73.0); PLATELET COUNT AUTOMATED 258 10*3/uL (130-400); RED BLOOD COUNT 3.48 10*6/uL (4.10-5.10); RED CELL DISTRI WIDTH 16.4 % (0-14.5); WHITE BLOOD COUNT 11.4 10*3/uL (4.8-10.8)
[2019-06-23 07:29] LABS: CREATININE 2.55 mg/dL (0.55-1.02)
[2019-06-23 08:00] VITALS: BP 130/60
[2019-06-23 12:00] VITALS: BP 152/68
[2019-06-23 16:00] VITALS: BP 145/64
[2019-06-23 20:00] VITALS: BP 150/64
[2019-06-24] VITALS: BP 144/59
[2019-06-24 08:00] VITALS: BP 178/88
[2019-06-24] MEDS ORDERED: LEVOFLOXACIN500 MG PO (08:23)
[2019-06-24] MEDS ORDERED: LASIX80 MG PO (08:23)
[2019-06-24] MEDS ORDERED: FEROSUL325 MG PO (08:33)
[2019-06-24] MEDS ORDERED: K-TAB20 MEQ PO (08:33)
== END 2019-06-24 10:50 | disposition home health service (06) | DRG 291 ==
LOC: ED 16:17 → EDHOLD 18:23 → 4E 18:23
PROVIDERS: Emergency Medicine; Internal Medicine Cardiovascular Disease; Internal Medicine Gastroenterology; Internal Medicine Nephrology; Physician Assistant; ADMIT Internal Medicine
DX: I13.0 Hypertensive heart and chronic kidney disease with heart failure and stage 1 through stage 4 chronic kidney disease, or unspecified chronic kidney disease (principal); I50.33 Acute on chronic diastolic (congestive) heart failure; J96.91 Respiratory failure, unspecified with hypoxia; N18.4 Chronic kidney disease, stage 4 (severe); N39.0 Urinary tract infection, site not specified; F32.1 Major depressive disorder, single episode, moderate; Z68.41 Body mass index [BMI] 40.0-44.9, adult; E44.1 Mild protein-calorie malnutrition; J45.901 Unspecified asthma with (acute) exacerbation; E11.22 Type 2 diabetes mellitus with diabetic chronic kidney disease; E53.8 Deficiency of other specified B group vitamins; E87.6 Hypokalemia; M85.9 Disorder of bone density and structure, unspecified; B96.1 Klebsiella pneumoniae [K. pneumoniae] as the cause of diseases classified elsewhere; E66.01 Morbid (severe) obesity due to excess calories; D50.9 Iron deficiency anemia, unspecified; J44.9 Chronic obstructive pulmonary disease, unspecified; M48.061 Spinal stenosis, lumbar region without neurogenic claudication; M54.16 Radiculopathy, lumbar region; M17.0 Bilateral primary osteoarthritis of knee; M16.0 Bilateral primary osteoarthritis of hip; G89.29 Other chronic pain; R62.7 Adult failure to thrive; Z96.641 Presence of right artificial hip joint; Z79.899 Other long term (current) drug therapy; Z88.8 Allergy status to other drugs, medicaments and biological substances

== ENCOUNTER → 2020-10-14 | Outpatient (CLI) | payer MEDICARE ==
[~2020-10-14] MED LIST changes: +FEROSUL325 MG PO; +K-TAB20 MEQ PO
[2020-10-14 11:42] LABS: CREATININE 3.22 mg/dL (0.55-1.02); POTASSIUM 4.4 mmol/L (3.5-5.1)
== END | disposition home or self-care (01) ==
LOC: LAB 11:03
PROVIDERS: ATTEND Internal Medicine
DX: I50.9 Heart failure, unspecified (principal); J90 Pleural effusion, not elsewhere classified; J44.9 Chronic obstructive pulmonary disease, unspecified; E11.22 Type 2 diabetes mellitus with diabetic chronic kidney disease; M19.90 Unspecified osteoarthritis, unspecified site

== ENCOUNTER 2020-10-15 13:27 | Inpatient (IN) | payer MEDICARE ==
[~2020-10-15] VITALS: Ht 154.9 cm; Wt 81.2 kg
[2020-10-15 13:55] LABS: BASO % 0.4 % (0.0-1.0); EOS # 0.2 10*3/uL (0.0-0.4); EOS % 1.7 % (1.0-4.0); HEMATOCRIT 36.5 % (37.0-47.0); LYMPH # 1.4 10*3/uL (1.3-4.4); LYMPH % 12.3 % (27.0-41.0); MEAN CELL VOLUME 81.7 fl (81.0-99.0); MEAN CORPUSCULAR HGB 27.1 pg (27.0-31.0); MEAN CORPUSCULAR HGB CONC 33.2 g/dl (33.0-37.0); MEAN PLATELET VOLUME 12.1 fl (9.6-12.3); MONO # 0.6 10*3/uL (0.1-1.0); MONO % 5.6 % (3.0-9.0); NEUT # 8.8 10*3/uL (2.3-7.9); NEUT % 79.4 % (47.0-73.0); PLATELET COUNT AUTOMATED 299 10*3/uL (130-400); RED BLOOD COUNT 4.47 10*6/uL (4.10-5.10); RED CELL DISTRI WIDTH 14.3 % (0-14.5); WHITE BLOOD COUNT 11.1 10*3/uL (4.8-10.8)
[2020-10-15 13:58] VITALS: BP 136/64
[2020-10-15 14:08] LABS: ACT PARTIAL THROMBO TIME 27.3 SECONDS (20.0-32.1); INTERNATIONAL NORM RATIO 1.1 (2.0-3.5)
[2020-10-15 14:11] LABS: ALBUMIN 3.4 gm/dl (3.1-4.5); ALKALINE PHOSPHATASE 196 U/L (45-117); BUN 43 mg/dl (7-24); CHLORIDE 104 mmol/L (98-107); CREATININE 3.06 mg/dL (0.55-1.02); LIPASE 106 U/L (73-393); POTASSIUM 4.4 mmol/L (3.5-5.1); SGOT/AST 4 IU/L (3-35); SGPT/ALT 14 U/L (12-78); SODIUM 135 mmol/L (136-145); TOTAL PROTEIN 7.4 gm/dL (6.4-8.2)
[2020-10-15 14:12] LABS: TROPONIN I < 0.015 ng/ml (<0.045)
[2020-10-15 15:50] LABS: BILIRUBIN Negative (Negative); BLOOD Trace-Lysed (Negative); CLARITY Clear (Clear); COLOR Yellow (Yellow); GLUCOSE 2+ (Negative); KETONE Negative (Negative); LEUKO ESTERASE Negative (Negative); NITRITE Negative (Negative); UROBILINOGEN 0.2 E.U./dl (0.0-1.0)
[2020-10-15 16:17] LABS: BACTERIA 3+; RBC 0-2 rbc/hpf (0-2); WBC 16-20 wbc/hpf (0-5)
[2020-10-15 19:27] VITALS: BP 135/78
[2020-10-15 21:59] VITALS: BP 162/57
[2020-10-16] VITALS (8 sets, daily range): BP systolic 101–188; BP diastolic 61–84
[2020-10-16 09:57] LABS: CREATININE 2.88 mg/dL (0.55-1.02); POTASSIUM 3.9 mmol/L (3.5-5.1)
[2020-10-17 06:40] LABS: BASO % 0.5 % (0.0-1.0); EOS # 0.3 10*3/uL (0.0-0.4); EOS % 2.9 % (1.0-4.0); HEMATOCRIT 33.6 % (37.0-47.0); LYMPH # 1.4 10*3/uL (1.3-4.4); LYMPH % 15.8 % (27.0-41.0); MEAN CELL VOLUME 83.8 fl (81.0-99.0); MEAN CORPUSCULAR HGB 26.7 pg (27.0-31.0); MEAN CORPUSCULAR HGB CONC 31.8 g/dl (33.0-37.0); MEAN PLATELET VOLUME 12.5 fl (9.6-12.3); MONO # 0.6 10*3/uL (0.1-1.0); MONO % 6.8 % (3.0-9.0); NEUT # 6.6 10*3/uL (2.3-7.9); NEUT % 73.7 % (47.0-73.0); PLATELET COUNT AUTOMATED 238 10*3/uL (130-400); RED BLOOD COUNT 4.01 10*6/uL (4.10-5.10); RED CELL DISTRI WIDTH 14.5 % (0-14.5); WHITE BLOOD COUNT 8.9 10*3/uL (4.8-10.8)
[2020-10-17 07:05] LABS: POTASSIUM 4.2 mmol/L (3.5-5.1)
[2020-10-17 07:07] LABS: CREATININE 2.79 mg/dL (0.55-1.02)
[2020-10-17 08:00] VITALS: BP 176/62
[2020-10-17 10:03] LABS: CREATININE 2.7 mg/dL (0.55-1.02)
[2020-10-17 12:00] VITALS: BP 159/79
[2020-10-17 16:00] VITALS: BP 152/70; BP 175/62
[2020-10-17 20:00] VITALS: BP 180/58
[2020-10-18] VITALS: BP 171/59
[2020-10-18 06:05] LABS: CREATININE 2.86 mg/dL (0.55-1.02); POTASSIUM 4.3 mmol/L (3.5-5.1)
[2020-10-18 06:24] LABS: BASO % 0.5 % (0.0-1.0); EOS # 0.3 10*3/uL (0.0-0.4); EOS % 3.1 % (1.0-4.0); LYMPH # 1.1 10*3/uL (1.3-4.4); LYMPH % 13.6 % (27.0-41.0); MEAN CELL VOLUME 85.3 fl (81.0-99.0); MEAN CORPUSCULAR HGB 26.9 pg (27.0-31.0); MEAN CORPUSCULAR HGB CONC 31.5 g/dl (33.0-37.0); MEAN PLATELET VOLUME 12.8 fl (9.6-12.3); MONO # 0.7 10*3/uL (0.1-1.0); MONO % 7.9 % (3.0-9.0); NEUT # 6.2 10*3/uL (2.3-7.9); NEUT % 74.5 % (47.0-73.0); PLATELET COUNT AUTOMATED 220 10*3/uL (130-400); RED BLOOD COUNT 3.87 10*6/uL (4.10-5.10); RED CELL DISTRI WIDTH 14.5 % (0-14.5); WHITE BLOOD COUNT 8.3 10*3/uL (4.8-10.8)
[2020-10-18 07:50] VITALS: BP 142/42
[2020-10-18] MEDS ORDERED: TRULICITY0.75 MG/0. SC (08:44)
[2020-10-18] MEDS ORDERED: LASIX40 MG PO (08:44)
[2020-10-18] MEDS ORDERED: METOPROLOL SUCC25 M2 PO (08:44)
[2020-10-18 09:45] LABS: POTASSIUM 4.1 mmol/L (3.5-5.1)
[2020-10-18 12:00] VITALS: BP 162/44
[2020-10-18 13:17] LABS: URINE CREATININE RANDOM 99.9 mg/dL
[2020-10-18] MEDS ORDERED: AUGMENTIN 875875 MG PO (14:54)
[2020-10-18 16:29] VITALS: BP 155/70
== END 2020-10-18 18:12 | disposition home or self-care (01) | DRG 291 ==
LOC: ED 13:27 → EDHOLD 17:59 → 4E 17:59
PROVIDERS: Emergency Medicine; Internal Medicine Nephrology; ADMIT Internal Medicine; ATTEND Internal Medicine
DX: I13.0 Hypertensive heart and chronic kidney disease with heart failure and stage 1 through stage 4 chronic kidney disease, or unspecified chronic kidney disease (principal); I50.31 Acute diastolic (congestive) heart failure; N18.4 Chronic kidney disease, stage 4 (severe); N17.9 Acute kidney failure, unspecified; N39.0 Urinary tract infection, site not specified; F32.1 Major depressive disorder, single episode, moderate; Z96.641 Presence of right artificial hip joint; M17.0 Bilateral primary osteoarthritis of knee; E11.22 Type 2 diabetes mellitus with diabetic chronic kidney disease; B96.20 Unspecified Escherichia coli [E. coli] as the cause of diseases classified elsewhere; J44.9 Chronic obstructive pulmonary disease, unspecified; E11.65 Type 2 diabetes mellitus with hyperglycemia; M48.00 Spinal stenosis, site unspecified; G89.29 Other chronic pain; E87.6 Hypokalemia; T50.2X5A Adverse effect of carbonic-anhydrase inhibitors, benzothiadiazides and other diuretics, initial encounter; D64.9 Anemia, unspecified; Z91.19 Patient's noncompliance with other medical treatment and regimen; Z88.2 Allergy status to sulfonamides; Z88.1 Allergy status to other antibiotic agents; Z87.440 Personal history of urinary (tract) infections; Z91.81 History of falling; Z87.01 Personal history of pneumonia (recurrent); Z79.899 Other long term (current) drug therapy; Y92.89 Other specified places as the place of occurrence of the external cause

== ENCOUNTER 2021-04-03 19:51 | Inpatient (IN) | payer MEDICARE ==
[~2021-04-03] VITALS: Ht 157.5 cm; Wt 72.6 kg
[~2021-04-03 19:51] MED LIST changes: +METOPROLOL SUCC25 M2 PO; +TRULICITY0.75 MG/0. SC
[2021-04-03 20:46] VITALS: BP 161/118
[2021-04-03 21:33] LABS: HEMATOCRIT 35.2 % (37.0-47.0); MEAN CELL VOLUME 83.4 fl (81.0-99.0); MEAN CORPUSCULAR HGB 26.3 pg (27.0-31.0); MEAN CORPUSCULAR HGB CONC 31.5 g/dl (33.0-37.0); MEAN PLATELET VOLUME 12.6 fl (9.6-12.3); PLATELET COUNT AUTOMATED 307 10*3/uL (130-400); RED BLOOD COUNT 4.22 10*6/uL (4.10-5.10); RED CELL DISTRI WIDTH 15.7 % (0-14.5); WHITE BLOOD COUNT 19.2 10*3/uL (4.8-10.8)
[2021-04-03 21:49] LABS: ALBUMIN 2.2 gm/dl (3.1-4.5); ALKALINE PHOSPHATASE 207 U/L (45-117); BUN 35 mg/dl (7-24); CHLORIDE 108 mmol/L (98-107); CREATININE 3.45 mg/dL (0.55-1.02); POTASSIUM 4.6 mmol/L (3.5-5.1); SGOT/AST 4 IU/L (3-35); SGPT/ALT 11 U/L (12-78); SODIUM 133 mmol/L (136-145); TOTAL PROTEIN 6.3 gm/dL (6.4-8.2)
[2021-04-03 21:51] LABS: PLATELET SUFFICIENCY NORMAL (NORMAL); TOTAL CELLS COUNTED 100 #CELLS
[2021-04-03 21:52] LABS: TROPONIN I < 0.015 ng/ml (<0.045)
[2021-04-03 23:13] VITALS: BP 142/58
[2021-04-03 23:33] LABS: BILIRUBIN Negative (Negative); BLOOD 2+ (Negative); CLARITY Turbid (Clear); COLOR Yellow (Yellow); GLUCOSE 3+ (Negative); KETONE Trace (Negative); LEUKO ESTERASE 2+ (Negative); NITRITE Negative (Negative); SPECIFIC GRAVITY 1.015 (1.001-1.030); UROBILINOGEN 0.2 E.U./dl (0.0-1.0)
[2021-04-04] VITALS (8 sets, daily range): BP systolic 136–186; BP diastolic 48–92
[2021-04-04 00:09] LABS: BACTERIA 4+; WBC TNTC wbc/hpf (0-5)
[2021-04-04 12:48] LABS: ALBUMIN 1.9 gm/dl (3.1-4.5); CREATININE 3.75 mg/dL (0.55-1.02); POTASSIUM 4.4 mmol/L (3.5-5.1); TOTAL PROTEIN 5.9 gm/dL (6.4-8.2)
[2021-04-04 18:32] LABS: CREATININE 3.64 mg/dL (0.55-1.02); POTASSIUM 4.4 mmol/L (3.5-5.1)
[2021-04-04] MEDS ORDERED: TUMS300 MG PO (18:35)
[2021-04-05] VITALS: BP 132/48
[2021-04-05 00:37] LABS: CREATININE 3.8 mg/dL (0.55-1.02); POTASSIUM 3.7 mmol/L (3.5-5.1)
[2021-04-05 04:00] VITALS: BP 136/44
[2021-04-05 05:45] LABS: ALBUMIN 1.6 gm/dl (3.1-4.5); CREATININE 3.77 mg/dL (0.55-1.02); POTASSIUM 3.5 mmol/L (3.5-5.1)
[2021-04-05 06:17] LABS: HEMATOCRIT 28.9 % (37.0-47.0); MEAN CELL VOLUME 82.3 fl (81.0-99.0); MEAN CORPUSCULAR HGB 26.5 pg (27.0-31.0); MEAN CORPUSCULAR HGB CONC 32.2 g/dl (33.0-37.0); MEAN PLATELET VOLUME 12.6 fl (9.6-12.3); PLATELET COUNT AUTOMATED 277 10*3/uL (130-400); RED BLOOD COUNT 3.51 10*6/uL (4.10-5.10); RED CELL DISTRI WIDTH 16.2 % (0-14.5); WHITE BLOOD COUNT 22.4 10*3/uL (4.8-10.8)
[2021-04-05 06:59] LABS: BURR CELLS FEW; PLATELET SUFFICIENCY NORMAL (NORMAL); POLYCHROMASIA SLIGHT; TOTAL CELLS COUNTED 100 #CELLS
[2021-04-05 08:00] VITALS: BP 154/49
[2021-04-05 10:04] LABS: FERRITIN 365.9 ng/mL (10.0-291.0); PTH INTACT 143.6 pg/mL (18.5-88.0)
[2021-04-05 12:00] VITALS: BP 152/50
[2021-04-05 16:00] VITALS: BP 152/51
[2021-04-05 20:00] VITALS: BP 137/43
[2021-04-06] VITALS: BP 158/59
[2021-04-06 04:00] VITALS: BP 159/61
[2021-04-06 05:52] LABS: ALBUMIN 1.5 gm/dl (3.1-4.5); CREATININE 3.83 mg/dL (0.55-1.02); TOTAL PROTEIN 5.1 gm/dL (6.4-8.2)
[2021-04-06 06:19] LABS: BASO % 0.2 % (0.0-1.0); EOS # 0.1 10*3/uL (0.0-0.4); EOS % 0.8 % (1.0-4.0); HEMATOCRIT 29.6 % (37.0-47.0); LYMPH # 1.5 10*3/uL (1.3-4.4); LYMPH % 8.3 % (27.0-41.0); MEAN CELL VOLUME 84.1 fl (81.0-99.0); MEAN CORPUSCULAR HGB 26.4 pg (27.0-31.0); MEAN CORPUSCULAR HGB CONC 31.4 g/dl (33.0-37.0); MONO # 1.1 10*3/uL (0.1-1.0); MONO % 5.7 % (3.0-9.0); NEUT # 15.6 10*3/uL (2.3-7.9); NEUT % 84.1 % (47.0-73.0); PLATELET COUNT AUTOMATED 309 10*3/uL (130-400); RED BLOOD COUNT 3.52 10*6/uL (4.10-5.10); RED CELL DISTRI WIDTH 16.7 % (0-14.5); WHITE BLOOD COUNT 18.5 10*3/uL (4.8-10.8)
[2021-04-06 08:00] VITALS: BP 170/56
[2021-04-06 12:00] VITALS: BP 140/53
[2021-04-06 16:00] VITALS: BP 154/55
[2021-04-06 20:00] VITALS: BP 162/81
[2021-04-07] VITALS: BP 150/62
[2021-04-07 04:00] VITALS: BP 151/51
[2021-04-07 06:31] LABS: BASO % 0.2 % (0.0-1.0); EOS # 0.3 10*3/uL (0.0-0.4); HEMATOCRIT 26.9 % (37.0-47.0); LYMPH # 1.7 10*3/uL (1.3-4.4); LYMPH % 13.5 % (27.0-41.0); MEAN CELL VOLUME 84.3 fl (81.0-99.0); MEAN CORPUSCULAR HGB 26.3 pg (27.0-31.0); MEAN CORPUSCULAR HGB CONC 31.2 g/dl (33.0-37.0); MEAN PLATELET VOLUME 12.9 fl (9.6-12.3); MONO % 7.7 % (3.0-9.0); NEUT # 9.4 10*3/uL (2.3-7.9); PLATELET COUNT AUTOMATED 257 10*3/uL (130-400); RED BLOOD COUNT 3.19 10*6/uL (4.10-5.10); RED CELL DISTRI WIDTH 16.5 % (0-14.5); WHITE BLOOD COUNT 12.4 10*3/uL (4.8-10.8)
[2021-04-07 06:47] LABS: ALBUMIN 1.3 gm/dl (3.1-4.5); POTASSIUM 3.3 mmol/L (3.5-5.1)
[2021-04-07 06:51] LABS: CREATININE 3.74 mg/dL (0.55-1.02); TOTAL PROTEIN 4.6 gm/dL (6.4-8.2)
[2021-04-07 08:00] VITALS: BP 166/52
[2021-04-07 11:55] VITALS: BP 126/42
[2021-04-07 12:07] LABS: CREATININE,URINE 87.3 mg/dL (Not Estab.)
[2021-04-07 16:01] VITALS: BP 150/87
[2021-04-07 20:00] VITALS: BP 187/60
[2021-04-08] VITALS: BP 181/62
[2021-04-08 04:00] VITALS: BP 164/58
[2021-04-08 08:00] VITALS: BP 157/53
[2021-04-08 10:05] LABS: BASO # 0.1 10*3/uL (0.0-0.1); BASO % 0.4 % (0.0-1.0); EOS # 0.3 10*3/uL (0.0-0.4); EOS % 2.3 % (1.0-4.0); HEMATOCRIT 33.1 % (37.0-47.0); LYMPH # 1.5 10*3/uL (1.3-4.4); MEAN CELL VOLUME 84.9 fl (81.0-99.0); MEAN CORPUSCULAR HGB 26.2 pg (27.0-31.0); MEAN CORPUSCULAR HGB CONC 30.8 g/dl (33.0-37.0); MONO # 0.7 10*3/uL (0.1-1.0); MONO % 6.3 % (3.0-9.0); NEUT # 8.9 10*3/uL (2.3-7.9); PLATELET COUNT AUTOMATED 309 10*3/uL (130-400); RED CELL DISTRI WIDTH 16.6 % (0-14.5); WHITE BLOOD COUNT 11.6 10*3/uL (4.8-10.8)
[2021-04-08 10:21] LABS: ALBUMIN 1.6 gm/dl (3.1-4.5); CREATININE 3.72 mg/dL (0.55-1.02); POTASSIUM 3.6 mmol/L (3.5-5.1); TOTAL PROTEIN 5.5 gm/dL (6.4-8.2)
[2021-04-08 12:00] VITALS: BP 177/60
[2021-04-08 16:00] VITALS: BP 135/53
[2021-04-08 20:00] VITALS: BP 156/50
[2021-04-09] VITALS: BP 150/44
[2021-04-09 08:00] VITALS: BP 164/53
[2021-04-09 12:00] VITALS: BP 174/50
[2021-04-09 16:00] VITALS: BP 157/74
[2021-04-09 20:00] VITALS: BP 161/57
[2021-04-10] VITALS: BP 170/48
[2021-04-10 06:54] LABS: BASO % 0.4 % (0.0-1.0); EOS # 0.3 10*3/uL (0.0-0.4); EOS % 2.7 % (1.0-4.0); HEMATOCRIT 26.7 % (37.0-47.0); LYMPH # 1.8 10*3/uL (1.3-4.4); LYMPH % 19.1 % (27.0-41.0); MEAN CORPUSCULAR HGB 26.1 pg (27.0-31.0); MEAN CORPUSCULAR HGB CONC 31.1 g/dl (33.0-37.0); MEAN PLATELET VOLUME 11.7 fl (9.6-12.3); MONO # 0.8 10*3/uL (0.1-1.0); NEUT # 6.5 10*3/uL (2.3-7.9); NEUT % 68.9 % (47.0-73.0); PLATELET COUNT AUTOMATED 275 10*3/uL (130-400); RED BLOOD COUNT 3.18 10*6/uL (4.10-5.10); RED CELL DISTRI WIDTH 16.3 % (0-14.5); WHITE BLOOD COUNT 9.4 10*3/uL (4.8-10.8)
[2021-04-10 07:06] LABS: CREATININE 3.81 mg/dL (0.55-1.02); POTASSIUM 3.8 mmol/L (3.5-5.1)
[2021-04-10 08:00] VITALS: BP 149/55
[2021-04-10 12:00] VITALS: BP 160/48
[2021-04-10 16:00] VITALS: BP 180/56
[2021-04-10 20:00] VITALS: BP 168/86
[2021-04-11] VITALS: BP 138/86
[2021-04-11 08:00] VITALS: BP 170/52
[2021-04-11] MEDS ORDERED: SODIUM BICARBO650 MG PO (11:28)
[2021-04-11] MEDS ORDERED: AMLODIPINE BESYL5 MG PO (11:28)
[2021-04-11 12:00] VITALS: BP 148/55
[2021-04-11 15:33] VITALS: BP 142/52
[2021-04-11 20:00] VITALS: BP 151/40
[2021-04-12] VITALS: BP 145/48
[2021-04-12 08:00] VITALS: BP 149/49
[2021-04-12] MEDS ORDERED: AUGMENTIN 875-875 MG PO (10:52)
== END 2021-04-12 12:00 | disposition home health service (06) | DRG 871 ==
LOC: ED 19:51 → ICCU 04-04 02:24 → EDHOLD 04-04 02:24 → ICCU 04-04 04:18 → 4E 04-08 13:23
PROVIDERS: Emergency Medicine; Internal Medicine; Internal Medicine Nephrology; ADMIT Internal Medicine; ATTEND Internal Medicine
PROC: 05HY33Z Insertion of Infusion Device into Upper Vein, Percutaneous Approach (ICD-10-PCS; principal; 2021-04-05)
PROC: 02HV33Z Insertion of Infusion Device into Superior Vena Cava, Percutaneous Approach (ICD-10-PCS; 2021-04-11)
DX: A41.51 Sepsis due to Escherichia coli [E. coli] (principal); E11.10 Type 2 diabetes mellitus with ketoacidosis without coma; E43 Unspecified severe protein-calorie malnutrition; N17.0 Acute kidney failure with tubular necrosis; N18.5 Chronic kidney disease, stage 5; I50.32 Chronic diastolic (congestive) heart failure; F33.1 Major depressive disorder, recurrent, moderate; I13.0 Hypertensive heart and chronic kidney disease with heart failure and stage 1 through stage 4 chronic kidney disease, or unspecified chronic kidney disease; N12 Tubulo-interstitial nephritis, not specified as acute or chronic; Z20.822 Contact with and (suspected) exposure to COVID-19; E87.6 Hypokalemia; R31.9 Hematuria, unspecified; G89.29 Other chronic pain; E11.22 Type 2 diabetes mellitus with diabetic chronic kidney disease; D50.9 Iron deficiency anemia, unspecified; E83.42 Hypomagnesemia; K52.9 Noninfective gastroenteritis and colitis, unspecified; B96.1 Klebsiella pneumoniae [K. pneumoniae] as the cause of diseases classified elsewhere; J44.9 Chronic obstructive pulmonary disease, unspecified; M48.00 Spinal stenosis, site unspecified; Z91.14 Patient's other noncompliance with medication regimen; Z88.1 Allergy status to other antibiotic agents; Z88.2 Allergy status to sulfonamides; Z88.8 Allergy status to other drugs, medicaments and biological substances; Z68.29 Body mass index [BMI] 29.0-29.9, adult

== ENCOUNTER 2021-05-18 14:04 | Inpatient (IN) | payer MEDICARE ==
[~2021-05-18] VITALS: Ht 157.4 cm; Wt 54.4 kg
[~2021-05-18 14:04] MED LIST changes: +AMLODIPINE BESYL5 MG PO; +SODIUM BICARBO650 MG PO; +TUMS300 MG PO
[2021-05-18 14:13] VITALS: BP 123/60
[2021-05-18 17:12] LABS: BASO # 0.1 10*3/uL (0.0-0.1); BASO % 0.4 % (0.0-1.0); EOS % 0.3 % (1.0-4.0); HEMATOCRIT 34.1 % (37.0-47.0); LYMPH # 1.3 10*3/uL (1.3-4.4); LYMPH % 9.7 % (27.0-41.0); MEAN CELL VOLUME 83.8 fl (81.0-99.0); MEAN CORPUSCULAR HGB 26.3 pg (27.0-31.0); MEAN CORPUSCULAR HGB CONC 31.4 g/dl (33.0-37.0); MEAN PLATELET VOLUME 12.8 fl (9.6-12.3); MONO # 0.5 10*3/uL (0.1-1.0); PLATELET COUNT AUTOMATED 309 10*3/uL (130-400); RED BLOOD COUNT 4.07 10*6/uL (4.10-5.10); RED CELL DISTRI WIDTH 17.2 % (0-14.5)
[2021-05-18 17:26] LABS: ACT PARTIAL THROMBO TIME 24.8 SECONDS (20.0-32.1); INTERNATIONAL NORM RATIO 1.3 (2.0-3.5)
[2021-05-18 17:30] LABS: ALBUMIN 1.8 gm/dl (3.1-4.5); CREATININE 3.82 mg/dL (0.55-1.02); POTASSIUM 4.9 mmol/L (3.5-5.1); TOTAL PROTEIN 5.6 gm/dL (6.4-8.2)
[2021-05-18 17:45] VITALS: BP 145/52
[2021-05-18 18:12] LABS: BILIRUBIN Negative (Negative); BLOOD 2+ (Negative); CLARITY Turbid (Clear); COLOR Yellow (Yellow); GLUCOSE Trace (Negative); KETONE Trace (Negative); LEUKO ESTERASE 3+ (Negative); NITRITE Negative (Negative)
[2021-05-18 18:19] LABS: BACTERIA 4+; EPITHELIAL CELLS 0-2; MUCOUS TRACE; RBC TNTC rbc/hpf (0-2); WBC TNTC wbc/hpf (0-5)
[2021-05-18 19:46] VITALS: BP 153/60
[2021-05-19] VITALS (7 sets, daily range): BP systolic 137–158; BP diastolic 46–79
[2021-05-19 20:37] LABS: BASO % 0.3 % (0.0-1.0); EOS # 0.1 10*3/uL (0.0-0.4); EOS % 0.8 % (1.0-4.0); HEMATOCRIT 31.5 % (37.0-47.0); LYMPH # 1.3 10*3/uL (1.3-4.4); LYMPH % 11.8 % (27.0-41.0); MEAN CELL VOLUME 85.4 fl (81.0-99.0); MEAN CORPUSCULAR HGB 26.3 pg (27.0-31.0); MEAN CORPUSCULAR HGB CONC 30.8 g/dl (33.0-37.0); MEAN PLATELET VOLUME 13.3 fl (9.6-12.3); MONO # 0.7 10*3/uL (0.1-1.0); MONO % 5.9 % (3.0-9.0); NEUT % 80.7 % (47.0-73.0); PLATELET COUNT AUTOMATED 271 10*3/uL (130-400); RED BLOOD COUNT 3.69 10*6/uL (4.10-5.10); RED CELL DISTRI WIDTH 17.4 % (0-14.5); WHITE BLOOD COUNT 11.1 10*3/uL (4.8-10.8)
[2021-05-20] VITALS: BP 147/42
[2021-05-20 06:42] LABS: BASO % 0.4 % (0.0-1.0); EOS # 0.2 10*3/uL (0.0-0.4); EOS % 1.7 % (1.0-4.0); HEMATOCRIT 31.9 % (37.0-47.0); LYMPH # 2.1 10*3/uL (1.3-4.4); LYMPH % 18.4 % (27.0-41.0); MEAN CELL VOLUME 85.1 fl (81.0-99.0); MEAN CORPUSCULAR HGB 26.7 pg (27.0-31.0); MEAN CORPUSCULAR HGB CONC 31.3 g/dl (33.0-37.0); MEAN PLATELET VOLUME 13.1 fl (9.6-12.3); MONO # 0.7 10*3/uL (0.1-1.0); MONO % 6.1 % (3.0-9.0); NEUT # 8.2 10*3/uL (2.3-7.9); PLATELET COUNT AUTOMATED 323 10*3/uL (130-400); RED BLOOD COUNT 3.75 10*6/uL (4.10-5.10); RED CELL DISTRI WIDTH 17.5 % (0-14.5); WHITE BLOOD COUNT 11.2 10*3/uL (4.8-10.8)
[2021-05-20 06:53] LABS: CREATININE 3.23 mg/dL (0.55-1.02); POTASSIUM 4.3 mmol/L (3.5-5.1)
[2021-05-20 08:00] VITALS: BP 141/55
[2021-05-20] MEDS ORDERED: AUGMENTIN 500500 M1 PO (08:53)
[2021-05-20] MEDS ORDERED: ZOFRAN4 MG PO (09:04)
== END 2021-05-20 11:11 | disposition home or self-care (01) | DRG 391 ==
LOC: ED 14:04 → EDHOLD 18:30 → 5E 18:30
PROVIDERS: Emergency Medicine; ADMIT Internal Medicine; ATTEND Internal Medicine
DX: A08.4 Viral intestinal infection, unspecified (principal); E43 Unspecified severe protein-calorie malnutrition; N17.9 Acute kidney failure, unspecified; N39.0 Urinary tract infection, site not specified; I50.32 Chronic diastolic (congestive) heart failure; F33.9 Major depressive disorder, recurrent, unspecified; I13.2 Hypertensive heart and chronic kidney disease with heart failure and with stage 5 chronic kidney disease, or end stage renal disease; N25.81 Secondary hyperparathyroidism of renal origin; N18.5 Chronic kidney disease, stage 5; E11.22 Type 2 diabetes mellitus with diabetic chronic kidney disease; B96.1 Klebsiella pneumoniae [K. pneumoniae] as the cause of diseases classified elsewhere; R62.7 Adult failure to thrive; M48.00 Spinal stenosis, site unspecified; D63.1 Anemia in chronic kidney disease; E83.51 Hypocalcemia; D50.9 Iron deficiency anemia, unspecified; E53.8 Deficiency of other specified B group vitamins; Z88.2 Allergy status to sulfonamides; Z88.8 Allergy status to other drugs, medicaments and biological substances; Z79.899 Other long term (current) drug therapy; Z68.21 Body mass index [BMI] 21.0-21.9, adult

== ENCOUNTER 2021-11-25 16:01 | Inpatient (IN) | payer MEDICARE ==
[~2021-11-25] VITALS: Ht 160 cm; Wt 65.9 kg
[~2021-11-25 16:01] MED LIST changes: +AUGMENTIN 500500 M1 PO; +FLUONAZOLE100 M1 PO; +MIDODRINE HCL5 M1 PO; +TRAD5TAB1 PO; +ZOFRAN4 MG PO
[2021-11-25 16:35] VITALS: BP 173/46
[2021-11-25] MEDS ORDERED: WARFARIN SODIUM3 MG PO (16:36)
[2021-11-25] MEDS ORDERED: TOUJEO MAX300 UNIT/1 SQ (16:37)
[2021-11-25 18:01] LABS: BASO # 0.1 10*3/uL (0.0-0.1); BASO % 0.8 % (0.0-1.0); EOS # 0.2 10*3/uL (0.0-0.4); HEMATOCRIT 29.3 % (37.0-47.0); LYMPH # 1.5 10*3/uL (1.3-4.4); LYMPH % 19.4 % (27.0-41.0); MEAN CELL VOLUME 90.2 fl (81.0-99.0); MEAN CORPUSCULAR HGB 29.8 pg (27.0-31.0); MEAN CORPUSCULAR HGB CONC 33.1 g/dl (33.0-37.0); MEAN PLATELET VOLUME 12.9 fl (9.6-12.3); MONO # 0.4 10*3/uL (0.1-1.0); MONO % 5.3 % (3.0-9.0); NEUT # 5.5 10*3/uL (2.3-7.9); NEUT % 72.1 % (47.0-73.0); PLATELET COUNT AUTOMATED 288 10*3/uL (130-400); RED BLOOD COUNT 3.25 10*6/uL (4.10-5.10); RED CELL DISTRI WIDTH 14.1 % (0-14.5); WHITE BLOOD COUNT 7.6 10*3/uL (4.8-10.8)
[2021-11-25 18:14] LABS: INTERNATIONAL NORM RATIO 2.9 (2.0-3.5)
[2021-11-25 18:15] LABS: CREATININE 1.42 mg/dL (0.55-1.02); POTASSIUM 3.6 mmol/L (3.5-5.1); TOTAL PROTEIN 5.9 gm/dL (6.4-8.2)
[2021-11-25 19:30] VITALS: BP 174/45
[2021-11-25 21:10] VITALS: BP 156/68
[2021-11-26] VITALS: BP 152/49
[2021-11-26] MEDS ORDERED: LISINOPRIL5 MG PO (07:23)
[2021-11-26] MEDS ORDERED: GLIMEPIRIDE4 M1 PO (07:23)
[2021-11-26] MEDS ORDERED: LOMOTIL 2.5-0.1 EACH PO (07:25)
[2021-11-26] MEDS ORDERED: Rocaltrol0.25 MCG PO (07:26)
[2021-11-26 08:00] VITALS: BP 188/68
[2021-11-26 09:05] LABS: BILIRUBIN Negative (Negative); BLOOD Trace-Lysed (Negative); CLARITY Turbid (Clear); COLOR Yellow (Yellow); GLUCOSE Negative (Negative); KETONE Trace (Negative); LEUKO ESTERASE 2+ (Negative); NITRITE Negative (Negative); PH 6.5 (4.5-8.0); SPECIFIC GRAVITY 1.015 (1.001-1.030)
[2021-11-26 09:11] LABS: BACTERIA 4+; WBC TNTC wbc/hpf (0-5)
[2021-11-26 12:00] VITALS: BP 180/70
[2021-11-26 16:00] VITALS: BP 168/60
[2021-11-26 20:00] VITALS: BP 172/61
[2021-11-27] VITALS: BP 180/55
[2021-11-27] MEDS ORDERED: TOUJEO MAX300 UNIT/1 SQ (07:51)
[2021-11-27] MEDS ORDERED: LOVASTATIN10 MG PO (07:51)
[2021-11-27] MEDS ORDERED: LISINOPRIL5 MG PO (07:51)
[2021-11-27 08:00] VITALS: BP 198/67
== END 2021-11-27 08:50 | disposition home or self-care (01) | DRG 312 ==
LOC: ED 16:01 → EDHOLD 18:42 → 5E 20:40
PROVIDERS: Emergency Medicine; ADMIT Internal Medicine; ATTEND Internal Medicine
PROC: 5A1D70Z Performance of Urinary Filtration, Intermittent, Less than 6 Hours Per Day (ICD-10-PCS; principal; 2021-11-26)
DX: I95.1 Orthostatic hypotension (principal); N18.6 End stage renal disease; N39.0 Urinary tract infection, site not specified; I82.491 Acute embolism and thrombosis of other specified deep vein of right lower extremity; E11.649 Type 2 diabetes mellitus with hypoglycemia without coma; E11.22 Type 2 diabetes mellitus with diabetic chronic kidney disease; D64.9 Anemia, unspecified; Z88.2 Allergy status to sulfonamides; Z88.8 Allergy status to other drugs, medicaments and biological substances; Z99.2 Dependence on renal dialysis

== ENCOUNTER 2022-03-20 13:24 | Emergency (ER) | payer MEDICARE ==
[~2022-03-20] VITALS: Ht 157.4 cm; Wt 60.8 kg
[~2022-03-20 13:24] MED LIST changes: +LISINOPRIL5 MG PO; +LOMOTIL 2.5-0.1 EACH PO; +Rocaltrol0.25 MCG PO; +WARFARIN SODIUM3 MG PO
[2022-03-20 15:41] LABS: BASO % 0.4 % (0.0-1.0); EOS # 0.4 10*3/uL (0.0-0.4); EOS % 3.6 % (1.0-4.0); LYMPH # 1.2 10*3/uL (1.3-4.4); LYMPH % 11.2 % (27.0-41.0); MEAN CELL VOLUME 86.9 fl (81.0-99.0); MEAN CORPUSCULAR HGB 28.7 pg (27.0-31.0); MEAN CORPUSCULAR HGB CONC 33.1 g/dl (33.0-37.0); MEAN PLATELET VOLUME 12.6 fl (9.6-12.3); MONO # 0.8 10*3/uL (0.1-1.0); MONO % 7.3 % (3.0-9.0); NEUT # 8.4 10*3/uL (2.3-7.9); NEUT % 77.1 % (47.0-73.0); PLATELET COUNT AUTOMATED 272 10*3/uL (130-400); RED BLOOD COUNT 4.49 10*6/uL (4.10-5.10); RED CELL DISTRI WIDTH 15.3 % (0-14.5); WHITE BLOOD COUNT 10.9 10*3/uL (4.8-10.8)
[2022-03-20 15:58] LABS: ACT PARTIAL THROMBO TIME 45.3 SECONDS (20.0-32.1); INTERNATIONAL NORM RATIO 3.6 (2.0-3.5)
[2022-03-20 16:03] LABS: CREATININE 2.45 mg/dL (0.55-1.02); POTASSIUM 3.3 mmol/L (3.5-5.1); TOTAL PROTEIN 6.7 gm/dL (6.4-8.2)
[2022-03-20] MEDS ORDERED: HYDROCODONE-AC1 EAC1 PO (18:29)
[2022-03-27] MEDS ORDERED: LISINOPRIL30 MG PO (15:11)
[2022-03-27] MEDS ORDERED: TRADJENTA5 M1 PO (15:12)
[2022-03-27] MEDS ORDERED: LOMOTIL 2.5-0.1 EACH PO (15:13)
== END 2022-03-20 19:05 | disposition home or self-care (01) ==
LOC: ED 13:24
PROVIDERS: Emergency Medicine
DX: M79.652 Pain in left thigh (principal); M79.651 Pain in right thigh; Z79.01 Long term (current) use of anticoagulants; Z79.899 Other long term (current) drug therapy; Z88.1 Allergy status to other antibiotic agents; Z88.8 Allergy status to other drugs, medicaments and biological substances

== ENCOUNTER 2022-03-26 03:21 | Emergency (ER) | payer MEDICARE ==
[~2022-03-26 03:21] MED LIST changes: +HYDROCODONE-AC1 EAC1 PO
[2022-03-26 04:00] LABS: BASO % 0.1 % (0.0-1.0); HEMATOCRIT 34.1 % (37.0-47.0); LYMPH # 0.7 10*3/uL (1.3-4.4); LYMPH % 9.8 % (27.0-41.0); MEAN CORPUSCULAR HGB 28.5 pg (27.0-31.0); MONO # 0.7 10*3/uL (0.1-1.0); NEUT # 6.1 10*3/uL (2.3-7.9); NEUT % 80.8 % (47.0-73.0); PLATELET COUNT AUTOMATED 212 10*3/uL (130-400); RED BLOOD COUNT 3.83 10*6/uL (4.10-5.10); RED CELL DISTRI WIDTH 15.5 % (0-14.5); WHITE BLOOD COUNT 7.6 10*3/uL (4.8-10.8)
[2022-03-26 04:17] LABS: CREATININE 3.96 mg/dL (0.55-1.02); POTASSIUM 3.2 mmol/L (3.5-5.1); TOTAL PROTEIN 6.2 gm/dL (6.4-8.2)
[2022-03-26 04:21] LABS: INTERNATIONAL NORM RATIO 4.6 (2.0-3.5)
[2022-03-26 04:38] LABS: BILIRUBIN Negative (Negative); BLOOD 2+ (Negative); CLARITY Turbid (Clear); COLOR Yellow (Yellow); GLUCOSE Negative (Negative); KETONE Trace (Negative); LEUKO ESTERASE 2+ (Negative); NITRITE Negative (Negative); PH 5.5 (4.5-8.0); UROBILINOGEN 0.2 E.U./dl (0.0-1.0)
[2022-03-26 04:51] LABS: BACTERIA 4+; WBC TNTC wbc/hpf (0-5)
[2022-03-26] MEDS ORDERED: SEPTDS PO (07:11)
[2022-03-27] MEDS ORDERED: LISINOPRIL30 MG PO (15:11)
[2022-03-27] MEDS ORDERED: TRADJENTA5 M1 PO (15:12)
[2022-03-27] MEDS ORDERED: LOMOTIL 2.5-0.1 EACH PO (15:13)
[2022-04-02] MEDS ORDERED: VANCO 1 GR1 GM/250 M IV (17:32)
[2022-04-03] MEDS ORDERED: CARVEDILOL3.125 MG PO (08:24)
[2022-04-03] MEDS ORDERED: ELIQUIS5 M1 PO (08:24)
== END 2022-03-26 07:25 | disposition home or self-care (01) ==
LOC: ED 03:21
PROVIDERS: Family Medicine
DX: E11.649 Type 2 diabetes mellitus with hypoglycemia without coma (principal); N39.0 Urinary tract infection, site not specified; Z79.899 Other long term (current) drug therapy; Z79.01 Long term (current) use of anticoagulants; Z88.1 Allergy status to other antibiotic agents; Z88.8 Allergy status to other drugs, medicaments and biological substances

== ENCOUNTER 2022-04-15 16:55 | Emergency (ER) | payer MEDICARE ==
[~2022-04-15] VITALS: Ht 157.4 cm; Wt 58.1 kg
[~2022-04-15 16:55] MED LIST changes: +CARVEDILOL3.125 MG PO; +ELIQUIS5 M1 PO; +LISINOPRIL30 MG PO; +ONDANSETRON HYDR8 MG PO; +TRADJENTA5 M1 PO; +VANCO 1 GR1 GM/250 M IV
[2022-04-15 17:28] LABS: BASO % 0.3 % (0.0-1.0); EOS # 0.1 10*3/uL (0.0-0.4); EOS % 0.9 % (1.0-4.0); HEMATOCRIT 25.7 % (37.0-47.0); LYMPH # 1.2 10*3/uL (1.3-4.4); MEAN CELL VOLUME 89.5 fl (81.0-99.0); MEAN CORPUSCULAR HGB 28.9 pg (27.0-31.0); MEAN CORPUSCULAR HGB CONC 32.3 g/dl (33.0-37.0); MEAN PLATELET VOLUME 12.1 fl (9.6-12.3); MONO # 0.7 10*3/uL (0.1-1.0); MONO % 5.9 % (3.0-9.0); NEUT # 9.6 10*3/uL (2.3-7.9); NEUT % 82.5 % (47.0-73.0); PLATELET COUNT AUTOMATED 357 10*3/uL (130-400); RED BLOOD COUNT 2.87 10*6/uL (4.10-5.10); RED CELL DISTRI WIDTH 16.7 % (0-14.5); WHITE BLOOD COUNT 11.6 10*3/uL (4.8-10.8)
[2022-04-15 17:44] LABS: CREATININE 3.74 mg/dL (0.55-1.02); POTASSIUM 3.1 mmol/L (3.5-5.1); TOTAL PROTEIN 6.2 gm/dL (6.4-8.2)
[2022-04-15 17:49] LABS: ACT PARTIAL THROMBO TIME 27.1 SECONDS (20.0-32.1); INTERNATIONAL NORM RATIO 1.3 (2.0-3.5)
== END 2022-04-15 18:11 ==
LOC: ED 16:55
PROVIDERS: Emergency Medicine
DX: D64.9 Anemia, unspecified (principal); E87.6 Hypokalemia; N18.6 End stage renal disease; Z99.2 Dependence on renal dialysis

== ENCOUNTER → 2022-04-20 | Outpatient (CLI) | payer MEDICARE | LOC: WOUNDCARE 01:02 | PROVIDERS: ATTEND Nurse Practitioner Family | DX: Z53.21 Procedure and treatment not carried out due to patient leaving prior to being seen by health care provider (principal) ==

== ENCOUNTER → 2022-04-27 | Outpatient (CLI) | payer MEDICARE ==
[~2022-04-27] MED LIST changes: +HUMULIN R100 UNIT/1 IJ
[2022-04-27 09:47] VITALS: BP 150/54
[2022-04-27 10:24] VITALS: BP 154/53
[2022-04-27 11:24] VITALS: BP 133/58
[2022-04-27 12:04] VITALS: BP 134/56
[2022-04-27 12:34] VITALS: BP 137/59
== END | disposition home or self-care (01) ==
LOC: TRNFUSION 04-26 01:18
PROVIDERS: ATTEND Internal Medicine
DX: D64.9 Anemia, unspecified (principal); I13.2 Hypertensive heart and chronic kidney disease with heart failure and with stage 5 chronic kidney disease, or end stage renal disease; E11.22 Type 2 diabetes mellitus with diabetic chronic kidney disease; N18.6 End stage renal disease; I50.33 Acute on chronic diastolic (congestive) heart failure; J45.909 Unspecified asthma, uncomplicated; I25.10 Atherosclerotic heart disease of native coronary artery without angina pectoris; E78.5 Hyperlipidemia, unspecified; M48.00 Spinal stenosis, site unspecified; Z99.2 Dependence on renal dialysis

== ENCOUNTER → 2022-05-19 | Outpatient (CLI) | payer MEDICARE ==
[~2022-05-19] MED LIST changes: +CIPROFLOXACIN250 MG PO
== END | disposition home or self-care (01) ==
LOC: WOUNDCARE 01:39
PROVIDERS: ATTEND Nurse Practitioner Family
DX: L89.313 Pressure ulcer of right buttock, stage 3 (principal); E83.59 Other disorders of calcium metabolism; E11.22 Type 2 diabetes mellitus with diabetic chronic kidney disease; N18.6 End stage renal disease; I13.2 Hypertensive heart and chronic kidney disease with heart failure and with stage 5 chronic kidney disease, or end stage renal disease; I50.9 Heart failure, unspecified; E78.5 Hyperlipidemia, unspecified; M48.00 Spinal stenosis, site unspecified; F32.9 Major depressive disorder, single episode, unspecified; Z99.2 Dependence on renal dialysis; Z96.641 Presence of right artificial hip joint; Z95.828 Presence of other vascular implants and grafts; Z86.718 Personal history of other venous thrombosis and embolism

== ENCOUNTER → 2022-08-01 | Outpatient (CLI) | payer OTHER ==
[~2022-08-01] MED LIST changes: +AMOX-CLAV 875-1 EACH PO; +HYDRALAZINE HYD50 MG PO; +IMDUR SA30 MG PO; +LANTHANUM CAR1000 MG; +PIPERACIL-TAZ2.25 G1 IV; +VANC1PIG IV
== END | disposition home or self-care (01) ==
LOC: WOUNDCARE 02:09
PROVIDERS: ATTEND Nurse Practitioner Family
DX: E83.59 Other disorders of calcium metabolism (principal); E11.622 Type 2 diabetes mellitus with other skin ulcer; L97.112 Non-pressure chronic ulcer of right thigh with fat layer exposed; E11.22 Type 2 diabetes mellitus with diabetic chronic kidney disease; I13.0 Hypertensive heart and chronic kidney disease with heart failure and stage 1 through stage 4 chronic kidney disease, or unspecified chronic kidney disease; N18.6 End stage renal disease; I50.9 Heart failure, unspecified; M48.00 Spinal stenosis, site unspecified; E78.5 Hyperlipidemia, unspecified; G89.29 Other chronic pain; F32.9 Major depressive disorder, single episode, unspecified; Z96.641 Presence of right artificial hip joint; Z95.820 Peripheral vascular angioplasty status with implants and grafts; Z86.718 Personal history of other venous thrombosis and embolism

== ENCOUNTER → 2022-08-08 | Outpatient (CLI) | payer MEDICARE | END | disposition home or self-care (01) | LOC: WOUNDCARE | PROVIDERS: ATTEND Nurse Practitioner Family | DX: E83.59 Other disorders of calcium metabolism (principal); E11.22 Type 2 diabetes mellitus with diabetic chronic kidney disease; I13.0 Hypertensive heart and chronic kidney disease with heart failure and stage 1 through stage 4 chronic kidney disease, or unspecified chronic kidney disease; N18.6 End stage renal disease; I50.9 Heart failure, unspecified; E78.5 Hyperlipidemia, unspecified; G89.29 Other chronic pain; M48.00 Spinal stenosis, site unspecified; F32.9 Major depressive disorder, single episode, unspecified; Z96.641 Presence of right artificial hip joint; Z95.828 Presence of other vascular implants and grafts; Z86.718 Personal history of other venous thrombosis and embolism ==

== ENCOUNTER → 2022-08-15 | Outpatient (CLI) | payer MEDICARE | END | disposition home or self-care (01) | LOC: WOUNDCARE 05:16 | PROVIDERS: ATTEND Nurse Practitioner Family | DX: E83.59 Other disorders of calcium metabolism (principal); E11.22 Type 2 diabetes mellitus with diabetic chronic kidney disease; N18.6 End stage renal disease; I50.9 Heart failure, unspecified; M48.00 Spinal stenosis, site unspecified; I13.0 Hypertensive heart and chronic kidney disease with heart failure and stage 1 through stage 4 chronic kidney disease, or unspecified chronic kidney disease; E78.5 Hyperlipidemia, unspecified; G89.29 Other chronic pain; F32.9 Major depressive disorder, single episode, unspecified; Z96.641 Presence of right artificial hip joint; Z95.828 Presence of other vascular implants and grafts; Z86.718 Personal history of other venous thrombosis and embolism ==

== ENCOUNTER → 2022-08-24 | Outpatient (CLI) | payer MEDICARE | END | disposition home or self-care (01) | LOC: WOUNDCARE 01:07 | PROVIDERS: ATTEND Nurse Practitioner Family | DX: E83.59 Other disorders of calcium metabolism (principal); E11.622 Type 2 diabetes mellitus with other skin ulcer; L97.112 Non-pressure chronic ulcer of right thigh with fat layer exposed; E11.22 Type 2 diabetes mellitus with diabetic chronic kidney disease; I13.2 Hypertensive heart and chronic kidney disease with heart failure and with stage 5 chronic kidney disease, or end stage renal disease; I50.9 Heart failure, unspecified; N18.6 End stage renal disease; E78.5 Hyperlipidemia, unspecified; G89.29 Other chronic pain; M48.00 Spinal stenosis, site unspecified; F32.9 Major depressive disorder, single episode, unspecified; Z96.641 Presence of right artificial hip joint; Z95.820 Peripheral vascular angioplasty status with implants and grafts; Z86.718 Personal history of other venous thrombosis and embolism ==

== ENCOUNTER → 2022-08-29 | Outpatient (CLI) | payer MEDICARE | END | disposition home or self-care (01) | LOC: WOUNDCARE 00:45 | PROVIDERS: ATTEND Nurse Practitioner Family | DX: E83.59 Other disorders of calcium metabolism (principal); E11.622 Type 2 diabetes mellitus with other skin ulcer; L97.112 Non-pressure chronic ulcer of right thigh with fat layer exposed; E11.22 Type 2 diabetes mellitus with diabetic chronic kidney disease; I13.2 Hypertensive heart and chronic kidney disease with heart failure and with stage 5 chronic kidney disease, or end stage renal disease; I50.9 Heart failure, unspecified; N18.6 End stage renal disease; E78.5 Hyperlipidemia, unspecified; G89.29 Other chronic pain; M48.00 Spinal stenosis, site unspecified; F32.9 Major depressive disorder, single episode, unspecified; Z96.641 Presence of right artificial hip joint; Z95.820 Peripheral vascular angioplasty status with implants and grafts; Z86.718 Personal history of other venous thrombosis and embolism ==

== ENCOUNTER → 2022-09-07 | Outpatient (CLI) | payer MEDICARE | END | disposition home or self-care (01) | LOC: WOUNDCARE 02:22 | PROVIDERS: ATTEND Nurse Practitioner Family | DX: E83.59 Other disorders of calcium metabolism (principal); E11.622 Type 2 diabetes mellitus with other skin ulcer; L98.492 Non-pressure chronic ulcer of skin of other sites with fat layer exposed; E11.22 Type 2 diabetes mellitus with diabetic chronic kidney disease; I13.2 Hypertensive heart and chronic kidney disease with heart failure and with stage 5 chronic kidney disease, or end stage renal disease; N18.6 End stage renal disease; I50.9 Heart failure, unspecified; E78.5 Hyperlipidemia, unspecified; G89.29 Other chronic pain; M48.00 Spinal stenosis, site unspecified; F32.9 Major depressive disorder, single episode, unspecified; Z96.641 Presence of right artificial hip joint; Z95.828 Presence of other vascular implants and grafts; Z86.718 Personal history of other venous thrombosis and embolism ==

== ENCOUNTER → 2022-09-21 | Outpatient (CLI) | payer MEDICARE ==
[~2022-09-21] MED LIST changes: +CEFTRIAXONE1 G1 IV; +LOPERAMIDE HCL2 MG PO
== END | disposition home or self-care (01) ==
LOC: WOUNDCARE 00:39
PROVIDERS: ATTEND Nurse Practitioner Family
DX: L89.323 Pressure ulcer of left buttock, stage 3 (principal); E83.59 Other disorders of calcium metabolism; E11.22 Type 2 diabetes mellitus with diabetic chronic kidney disease; N18.6 End stage renal disease; I11.0 Hypertensive heart disease with heart failure; I50.9 Heart failure, unspecified; E78.5 Hyperlipidemia, unspecified; G89.29 Other chronic pain; M48.00 Spinal stenosis, site unspecified; F32.9 Major depressive disorder, single episode, unspecified; Z96.641 Presence of right artificial hip joint; Z95.828 Presence of other vascular implants and grafts; Z86.718 Personal history of other venous thrombosis and embolism

== ENCOUNTER → 2022-09-28 | Outpatient (CLI) | payer MEDICARE | END | disposition home or self-care (01) | LOC: WOUNDCARE 01:57 | PROVIDERS: ATTEND Nurse Practitioner Family | DX: E83.59 Other disorders of calcium metabolism (principal); L89.323 Pressure ulcer of left buttock, stage 3; E11.22 Type 2 diabetes mellitus with diabetic chronic kidney disease; I13.2 Hypertensive heart and chronic kidney disease with heart failure and with stage 5 chronic kidney disease, or end stage renal disease; N18.6 End stage renal disease; I50.9 Heart failure, unspecified; E78.5 Hyperlipidemia, unspecified; M48.00 Spinal stenosis, site unspecified; F32.9 Major depressive disorder, single episode, unspecified; Z96.641 Presence of right artificial hip joint; Z95.828 Presence of other vascular implants and grafts; Z86.718 Personal history of other venous thrombosis and embolism ==

== ENCOUNTER → 2022-10-12 | Outpatient (CLI) | payer MEDICARE | END | disposition home or self-care (01) | LOC: WOUNDCARE 10-03 01:37 | PROVIDERS: ATTEND Nurse Practitioner Family | DX: E83.59 Other disorders of calcium metabolism (principal); L89.323 Pressure ulcer of left buttock, stage 3; E11.22 Type 2 diabetes mellitus with diabetic chronic kidney disease; I13.2 Hypertensive heart and chronic kidney disease with heart failure and with stage 5 chronic kidney disease, or end stage renal disease; I50.9 Heart failure, unspecified; N18.6 End stage renal disease; E78.5 Hyperlipidemia, unspecified; G89.29 Other chronic pain; M48.00 Spinal stenosis, site unspecified; F32.9 Major depressive disorder, single episode, unspecified; Z96.641 Presence of right artificial hip joint; Z95.828 Presence of other vascular implants and grafts; Z86.718 Personal history of other venous thrombosis and embolism ==

== ENCOUNTER → 2022-10-26 | Outpatient (CLI) | payer MEDICARE | END | disposition home or self-care (01) | LOC: WOUNDCARE 01:32 | PROVIDERS: ATTEND Nurse Practitioner Family | DX: E83.59 Other disorders of calcium metabolism (principal); L89.323 Pressure ulcer of left buttock, stage 3; E11.22 Type 2 diabetes mellitus with diabetic chronic kidney disease; I13.0 Hypertensive heart and chronic kidney disease with heart failure and stage 1 through stage 4 chronic kidney disease, or unspecified chronic kidney disease; N18.6 End stage renal disease; I50.9 Heart failure, unspecified; E78.5 Hyperlipidemia, unspecified; M48.00 Spinal stenosis, site unspecified; F32.9 Major depressive disorder, single episode, unspecified; Z96.641 Presence of right artificial hip joint; Z95.828 Presence of other vascular implants and grafts; Z86.718 Personal history of other venous thrombosis and embolism ==

== ENCOUNTER → 2022-11-09 | Outpatient (CLI) | payer MEDICARE | END | disposition home or self-care (01) | LOC: WOUNDCARE 01:28 | PROVIDERS: ATTEND Nurse Practitioner Family | DX: E83.59 Other disorders of calcium metabolism (principal); L89.323 Pressure ulcer of left buttock, stage 3; E11.622 Type 2 diabetes mellitus with other skin ulcer; L97.102 Non-pressure chronic ulcer of unspecified thigh with fat layer exposed; E11.22 Type 2 diabetes mellitus with diabetic chronic kidney disease; I13.2 Hypertensive heart and chronic kidney disease with heart failure and with stage 5 chronic kidney disease, or end stage renal disease; N18.6 End stage renal disease; I50.9 Heart failure, unspecified; G89.29 Other chronic pain; E78.5 Hyperlipidemia, unspecified; M48.00 Spinal stenosis, site unspecified; F32.9 Major depressive disorder, single episode, unspecified; Z86.718 Personal history of other venous thrombosis and embolism; Z96.641 Presence of right artificial hip joint ==

== ENCOUNTER → 2022-11-16 | Outpatient (CLI) | payer MEDICARE | END | disposition home or self-care (01) | LOC: WOUNDCARE 00:36 | PROVIDERS: ATTEND Nurse Practitioner Family | DX: E83.59 Other disorders of calcium metabolism (principal); L89.323 Pressure ulcer of left buttock, stage 3; E11.622 Type 2 diabetes mellitus with other skin ulcer; L97.102 Non-pressure chronic ulcer of unspecified thigh with fat layer exposed; E11.22 Type 2 diabetes mellitus with diabetic chronic kidney disease; I13.2 Hypertensive heart and chronic kidney disease with heart failure and with stage 5 chronic kidney disease, or end stage renal disease; N18.6 End stage renal disease; I50.9 Heart failure, unspecified; E78.5 Hyperlipidemia, unspecified; G89.29 Other chronic pain; M48.00 Spinal stenosis, site unspecified; F32.A Depression, unspecified; Z86.718 Personal history of other venous thrombosis and embolism; Z96.641 Presence of right artificial hip joint ==

== ENCOUNTER → 2022-11-28 | Outpatient (CLI) | payer MEDICARE | END | disposition home or self-care (01) | LOC: WOUNDCARE 02:26 | PROVIDERS: ATTEND Nurse Practitioner Primary Care | DX: E83.59 Other disorders of calcium metabolism (principal); L89.323 Pressure ulcer of left buttock, stage 3; E11.622 Type 2 diabetes mellitus with other skin ulcer; L97.102 Non-pressure chronic ulcer of unspecified thigh with fat layer exposed; E11.22 Type 2 diabetes mellitus with diabetic chronic kidney disease; I13.2 Hypertensive heart and chronic kidney disease with heart failure and with stage 5 chronic kidney disease, or end stage renal disease; N18.6 End stage renal disease; I50.9 Heart failure, unspecified; E78.5 Hyperlipidemia, unspecified; G89.29 Other chronic pain; M48.00 Spinal stenosis, site unspecified; F32.A Depression, unspecified; Z86.718 Personal history of other venous thrombosis and embolism; Z96.641 Presence of right artificial hip joint; Z95.828 Presence of other vascular implants and grafts ==

== ENCOUNTER → 2022-12-21 | Outpatient (CLI) | payer MEDICARE | END | disposition home or self-care (01) | LOC: WOUNDCARE 02:10 | PROVIDERS: ATTEND Nurse Practitioner Family | DX: E83.59 Other disorders of calcium metabolism (principal); L89.323 Pressure ulcer of left buttock, stage 3; L97.102 Non-pressure chronic ulcer of unspecified thigh with fat layer exposed; E11.622 Type 2 diabetes mellitus with other skin ulcer; E11.22 Type 2 diabetes mellitus with diabetic chronic kidney disease; N18.6 End stage renal disease; I13.2 Hypertensive heart and chronic kidney disease with heart failure and with stage 5 chronic kidney disease, or end stage renal disease; I50.9 Heart failure, unspecified; E78.5 Hyperlipidemia, unspecified; G89.29 Other chronic pain; M48.00 Spinal stenosis, site unspecified; F32.9 Major depressive disorder, single episode, unspecified; Z96.641 Presence of right artificial hip joint; Z95.828 Presence of other vascular implants and grafts; Z86.718 Personal history of other venous thrombosis and embolism ==

== ENCOUNTER → 2023-01-04 | Outpatient (CLI) | payer MEDICARE | END | disposition home or self-care (01) | LOC: WOUNDCARE 01:23 | PROVIDERS: ATTEND Nurse Practitioner Family | DX: E83.59 Other disorders of calcium metabolism (principal); E11.622 Type 2 diabetes mellitus with other skin ulcer; L97.112 Non-pressure chronic ulcer of right thigh with fat layer exposed; L89.323 Pressure ulcer of left buttock, stage 3; E11.22 Type 2 diabetes mellitus with diabetic chronic kidney disease; I13.2 Hypertensive heart and chronic kidney disease with heart failure and with stage 5 chronic kidney disease, or end stage renal disease; N18.6 End stage renal disease; I50.9 Heart failure, unspecified; G89.29 Other chronic pain; E78.5 Hyperlipidemia, unspecified; M48.00 Spinal stenosis, site unspecified; F32.9 Major depressive disorder, single episode, unspecified; Z96.641 Presence of right artificial hip joint; Z86.718 Personal history of other venous thrombosis and embolism ==

== ENCOUNTER → 2023-01-18 | Outpatient (CLI) | payer MEDICARE | END | disposition home or self-care (01) | LOC: WOUNDCARE 01:09 | PROVIDERS: ATTEND Nurse Practitioner Family | DX: E83.59 Other disorders of calcium metabolism (principal); L89.323 Pressure ulcer of left buttock, stage 3; E11.622 Type 2 diabetes mellitus with other skin ulcer; L97.102 Non-pressure chronic ulcer of unspecified thigh with fat layer exposed; E11.22 Type 2 diabetes mellitus with diabetic chronic kidney disease; I13.2 Hypertensive heart and chronic kidney disease with heart failure and with stage 5 chronic kidney disease, or end stage renal disease; N18.6 End stage renal disease; I50.9 Heart failure, unspecified; G89.29 Other chronic pain; E78.5 Hyperlipidemia, unspecified; M48.00 Spinal stenosis, site unspecified; F32.9 Major depressive disorder, single episode, unspecified; Z86.718 Personal history of other venous thrombosis and embolism; Z96.641 Presence of right artificial hip joint; Z95.820 Peripheral vascular angioplasty status with implants and grafts ==

== ENCOUNTER → 2023-01-25 | Outpatient (CLI) | payer MEDICARE | END | disposition home or self-care (01) | LOC: WOUNDCARE 00:45 | PROVIDERS: ATTEND Nurse Practitioner Primary Care | DX: E83.59 Other disorders of calcium metabolism (principal); E11.622 Type 2 diabetes mellitus with other skin ulcer; L97.102 Non-pressure chronic ulcer of unspecified thigh with fat layer exposed; L89.323 Pressure ulcer of left buttock, stage 3; E11.22 Type 2 diabetes mellitus with diabetic chronic kidney disease; I13.2 Hypertensive heart and chronic kidney disease with heart failure and with stage 5 chronic kidney disease, or end stage renal disease; N18.6 End stage renal disease; I50.9 Heart failure, unspecified; G89.29 Other chronic pain; E78.5 Hyperlipidemia, unspecified; M48.00 Spinal stenosis, site unspecified; F32.9 Major depressive disorder, single episode, unspecified; Z96.641 Presence of right artificial hip joint; Z86.718 Personal history of other venous thrombosis and embolism ==

== ENCOUNTER → 2023-01-30 | Outpatient (CLI) | payer MEDICARE | END | disposition home or self-care (01) | LOC: WOUNDCARE 14:15 | PROVIDERS: ATTEND Nurse Practitioner Family | DX: E83.59 Other disorders of calcium metabolism (principal); E11.622 Type 2 diabetes mellitus with other skin ulcer; L97.122 Non-pressure chronic ulcer of left thigh with fat layer exposed; E11.22 Type 2 diabetes mellitus with diabetic chronic kidney disease; I13.2 Hypertensive heart and chronic kidney disease with heart failure and with stage 5 chronic kidney disease, or end stage renal disease; I50.9 Heart failure, unspecified; N18.6 End stage renal disease; M48.00 Spinal stenosis, site unspecified; G89.29 Other chronic pain; E78.5 Hyperlipidemia, unspecified; F32.A Depression, unspecified; Z99.2 Dependence on renal dialysis; Z96.641 Presence of right artificial hip joint; Z95.820 Peripheral vascular angioplasty status with implants and grafts; Z86.718 Personal history of other venous thrombosis and embolism ==

== ENCOUNTER → 2023-02-08 | Outpatient (CLI) | payer MEDICARE | END | disposition home or self-care (01) | LOC: WOUNDCARE 00:32 | PROVIDERS: ATTEND Nurse Practitioner Family | DX: E83.59 Other disorders of calcium metabolism (principal); E11.622 Type 2 diabetes mellitus with other skin ulcer; L97.112 Non-pressure chronic ulcer of right thigh with fat layer exposed; E11.22 Type 2 diabetes mellitus with diabetic chronic kidney disease; I13.2 Hypertensive heart and chronic kidney disease with heart failure and with stage 5 chronic kidney disease, or end stage renal disease; I50.9 Heart failure, unspecified; N18.6 End stage renal disease; M48.00 Spinal stenosis, site unspecified; G89.29 Other chronic pain; E78.5 Hyperlipidemia, unspecified; F32.A Depression, unspecified; Z96.641 Presence of right artificial hip joint; Z95.828 Presence of other vascular implants and grafts; Z86.718 Personal history of other venous thrombosis and embolism ==

== ENCOUNTER → 2023-02-15 | Outpatient (CLI) | payer MEDICARE | END | disposition home or self-care (01) | LOC: WOUNDCARE 01:49 | PROVIDERS: ATTEND Nurse Practitioner Family | DX: E83.59 Other disorders of calcium metabolism (principal); E11.622 Type 2 diabetes mellitus with other skin ulcer; L97.122 Non-pressure chronic ulcer of left thigh with fat layer exposed; E11.22 Type 2 diabetes mellitus with diabetic chronic kidney disease; N18.6 End stage renal disease; I50.9 Heart failure, unspecified; I13.2 Hypertensive heart and chronic kidney disease with heart failure and with stage 5 chronic kidney disease, or end stage renal disease; E78.5 Hyperlipidemia, unspecified; G89.29 Other chronic pain; M48.00 Spinal stenosis, site unspecified; F32.9 Major depressive disorder, single episode, unspecified; Z96.641 Presence of right artificial hip joint; Z86.718 Personal history of other venous thrombosis and embolism; Z95.828 Presence of other vascular implants and grafts ==

== ENCOUNTER → 2023-02-22 | Outpatient (CLI) | payer MEDICARE | LOC: WOUNDCARE 01:57 | PROVIDERS: ATTEND Nurse Practitioner Family | DX: E83.59 Other disorders of calcium metabolism (principal); E11.622 Type 2 diabetes mellitus with other skin ulcer; L97.122 Non-pressure chronic ulcer of left thigh with fat layer exposed; E11.22 Type 2 diabetes mellitus with diabetic chronic kidney disease; I13.2 Hypertensive heart and chronic kidney disease with heart failure and with stage 5 chronic kidney disease, or end stage renal disease; N18.6 End stage renal disease; I50.9 Heart failure, unspecified; M48.00 Spinal stenosis, site unspecified; E78.5 Hyperlipidemia, unspecified; G89.29 Other chronic pain; F32.9 Major depressive disorder, single episode, unspecified; Z86.718 Personal history of other venous thrombosis and embolism; Z96.641 Presence of right artificial hip joint; Z95.828 Presence of other vascular implants and grafts ==

== ENCOUNTER → 2023-03-08 | Outpatient (CLI) | payer MEDICARE | END | disposition home or self-care (01) | LOC: WOUNDCARE 00:42 | PROVIDERS: ATTEND Nurse Practitioner Family | DX: E83.59 Other disorders of calcium metabolism (principal); E11.622 Type 2 diabetes mellitus with other skin ulcer; L97.112 Non-pressure chronic ulcer of right thigh with fat layer exposed; E11.22 Type 2 diabetes mellitus with diabetic chronic kidney disease; N18.6 End stage renal disease; M48.00 Spinal stenosis, site unspecified; I13.0 Hypertensive heart and chronic kidney disease with heart failure and stage 1 through stage 4 chronic kidney disease, or unspecified chronic kidney disease; I50.9 Heart failure, unspecified; E78.5 Hyperlipidemia, unspecified; G89.29 Other chronic pain; F32.9 Major depressive disorder, single episode, unspecified; Z96.641 Presence of right artificial hip joint; Z95.828 Presence of other vascular implants and grafts; Z86.718 Personal history of other venous thrombosis and embolism ==

== ENCOUNTER → 2023-03-29 | Outpatient (CLI) | payer MEDICARE | LOC: WOUNDCARE 01:00 | PROVIDERS: ATTEND Nurse Practitioner Family | DX: E83.59 Other disorders of calcium metabolism (principal); E11.622 Type 2 diabetes mellitus with other skin ulcer; L97.102 Non-pressure chronic ulcer of unspecified thigh with fat layer exposed; E11.22 Type 2 diabetes mellitus with diabetic chronic kidney disease; N18.6 End stage renal disease; I13.2 Hypertensive heart and chronic kidney disease with heart failure and with stage 5 chronic kidney disease, or end stage renal disease; I50.9 Heart failure, unspecified; G89.29 Other chronic pain; E78.5 Hyperlipidemia, unspecified; M48.00 Spinal stenosis, site unspecified; F32.9 Major depressive disorder, single episode, unspecified; Z86.718 Personal history of other venous thrombosis and embolism ==

== ENCOUNTER → 2023-04-19 | Outpatient (CLI) | payer MEDICARE | END | disposition home or self-care (01) | LOC: WOUNDCARE 01:16 | PROVIDERS: ATTEND Nurse Practitioner Family | DX: E83.59 Other disorders of calcium metabolism (principal); E11.622 Type 2 diabetes mellitus with other skin ulcer; L97.122 Non-pressure chronic ulcer of left thigh with fat layer exposed; E11.22 Type 2 diabetes mellitus with diabetic chronic kidney disease; N18.6 End stage renal disease; I11.0 Hypertensive heart disease with heart failure; I50.9 Heart failure, unspecified; E78.5 Hyperlipidemia, unspecified; G89.29 Other chronic pain; M48.00 Spinal stenosis, site unspecified; F32.A Depression, unspecified; Z86.718 Personal history of other venous thrombosis and embolism; Z96.641 Presence of right artificial hip joint; Z95.828 Presence of other vascular implants and grafts ==

== ENCOUNTER → 2023-05-22 | Outpatient (CLI) | payer MEDICARE ==
[~2023-05-22] MED LIST changes: +OMNICEF300 MG PO
== END | disposition home or self-care (01) ==
LOC: WOUNDCARE 00:49
PROVIDERS: ATTEND Nurse Practitioner Family
DX: E83.59 Other disorders of calcium metabolism (principal); E11.622 Type 2 diabetes mellitus with other skin ulcer; L97.102 Non-pressure chronic ulcer of unspecified thigh with fat layer exposed; E11.22 Type 2 diabetes mellitus with diabetic chronic kidney disease; I13.2 Hypertensive heart and chronic kidney disease with heart failure and with stage 5 chronic kidney disease, or end stage renal disease; N18.6 End stage renal disease; I50.9 Heart failure, unspecified; M48.00 Spinal stenosis, site unspecified; E78.5 Hyperlipidemia, unspecified; G89.29 Other chronic pain; F32.9 Major depressive disorder, single episode, unspecified; Z96.641 Presence of right artificial hip joint; Z86.718 Personal history of other venous thrombosis and embolism

== ENCOUNTER → 2023-05-29 | Outpatient (CLI) | payer MEDICARE | END | disposition home or self-care (01) | LOC: WOUNDCARE 00:27 | PROVIDERS: ATTEND Nurse Practitioner Family | DX: E11.622 Type 2 diabetes mellitus with other skin ulcer (principal); L97.112 Non-pressure chronic ulcer of right thigh with fat layer exposed; L97.122 Non-pressure chronic ulcer of left thigh with fat layer exposed; E11.22 Type 2 diabetes mellitus with diabetic chronic kidney disease; I13.2 Hypertensive heart and chronic kidney disease with heart failure and with stage 5 chronic kidney disease, or end stage renal disease; I50.9 Heart failure, unspecified; N18.6 End stage renal disease; G89.29 Other chronic pain; E83.59 Other disorders of calcium metabolism; E78.5 Hyperlipidemia, unspecified; F32.9 Major depressive disorder, single episode, unspecified; Z86.718 Personal history of other venous thrombosis and embolism ==

== ENCOUNTER → 2023-06-05 | Outpatient (CLI) | payer MEDICARE | END | disposition home or self-care (01) | LOC: WOUNDCARE 01:34 | PROVIDERS: ATTEND Nurse Practitioner Family | DX: E83.59 Other disorders of calcium metabolism (principal); E11.622 Type 2 diabetes mellitus with other skin ulcer; L97.102 Non-pressure chronic ulcer of unspecified thigh with fat layer exposed; E11.22 Type 2 diabetes mellitus with diabetic chronic kidney disease; I13.2 Hypertensive heart and chronic kidney disease with heart failure and with stage 5 chronic kidney disease, or end stage renal disease; I50.9 Heart failure, unspecified; N18.6 End stage renal disease; E78.5 Hyperlipidemia, unspecified; G89.29 Other chronic pain; M48.00 Spinal stenosis, site unspecified; F32.9 Major depressive disorder, single episode, unspecified; Z96.641 Presence of right artificial hip joint; Z95.828 Presence of other vascular implants and grafts; Z86.718 Personal history of other venous thrombosis and embolism ==

== ENCOUNTER → 2023-06-19 | Outpatient (CLI) | payer MEDICARE ==
[~2023-06-19] MED LIST changes: +HUMALOG100 UNIT/1 SC; +LISINOPRIL40 MG PO; +TOPROL XL25 MG PO
== END | disposition home or self-care (01) ==
LOC: WOUNDCARE 02:15
PROVIDERS: ATTEND Nurse Practitioner Family
DX: E11.622 Type 2 diabetes mellitus with other skin ulcer (principal); L97.112 Non-pressure chronic ulcer of right thigh with fat layer exposed; L97.122 Non-pressure chronic ulcer of left thigh with fat layer exposed; E11.22 Type 2 diabetes mellitus with diabetic chronic kidney disease; I13.2 Hypertensive heart and chronic kidney disease with heart failure and with stage 5 chronic kidney disease, or end stage renal disease; I50.9 Heart failure, unspecified; N18.6 End stage renal disease; E83.59 Other disorders of calcium metabolism; E78.5 Hyperlipidemia, unspecified; G89.29 Other chronic pain; Z79.4 Long term (current) use of insulin; Z86.718 Personal history of other venous thrombosis and embolism

== ENCOUNTER 2023-07-28 19:52 | Emergency (ER) | payer OTHER ==
[~2023-07-28] VITALS: Ht 162.5 cm; Wt 43.5 kg
[~2023-07-28 19:52] MED LIST changes: +INSULIN LI100 UNIT/2 SQ; +VIBRAMYCIN100 MG PO
[2023-07-28 21:41] LABS: POTASSIUM 4.1 mmol/L (3.4-5.1); TOTAL PROTEIN 6.5 gm/dL (6.0-8.0)
[2023-07-28 21:47] LABS: BASO # 0.1 10*3/uL (0.0-0.1); BASO % 0.4 % (0.0-1.0); EOS # 0.1 10*3/uL (0.0-0.4); EOS % 0.8 % (1.0-4.0); HEMATOCRIT 29.5 % (37.0-47.0); LYMPH # 1.6 10*3/uL (1.3-4.4); LYMPH % 12.7 % (27.0-41.0); MEAN CORPUSCULAR HGB 31.2 pg (27.0-31.0); MEAN CORPUSCULAR HGB CONC 30.8 g/dl (33.0-37.0); MEAN PLATELET VOLUME 12.6 fl (9.6-12.3); MONO # 0.8 10*3/uL (0.1-1.0); MONO % 6.3 % (3.0-9.0); NEUT # 10.1 10*3/uL (2.3-7.9); NEUT % 79.5 % (47.0-73.0); PLATELET COUNT AUTOMATED 192 10*3/uL (130-400); RED BLOOD COUNT 2.92 10*6/uL (4.10-5.10); RED CELL DISTRI WIDTH 15.6 % (0-14.5); WHITE BLOOD COUNT 12.7 10*3/uL (4.8-10.8)
== END 2023-07-29 06:05 ==
LOC: ED 19:52
PROVIDERS: Emergency Medicine
DX: S00.03XA Contusion of scalp, initial encounter (principal); S80.211A Abrasion, right knee, initial encounter; E11.22 Type 2 diabetes mellitus with diabetic chronic kidney disease; I13.2 Hypertensive heart and chronic kidney disease with heart failure and with stage 5 chronic kidney disease, or end stage renal disease; N18.6 End stage renal disease; I50.9 Heart failure, unspecified; I25.10 Atherosclerotic heart disease of native coronary artery without angina pectoris; E43 Unspecified severe protein-calorie malnutrition; Z99.2 Dependence on renal dialysis; Z88.1 Allergy status to other antibiotic agents; Z88.2 Allergy status to sulfonamides; Z88.8 Allergy status to other drugs, medicaments and biological substances; Z79.899 Other long term (current) drug therapy; Z79.4 Long term (current) use of insulin; Z96.641 Presence of right artificial hip joint; Z95.828 Presence of other vascular implants and grafts; W18.39XA Other fall on same level, initial encounter; Y93.89 Activity, other specified; Y92.128 Other place in nursing home as the place of occurrence of the external cause; Y99.8 Other external cause status

== ENCOUNTER 2023-08-29 14:12 | Emergency (ER) | payer OTHER ==
[~2023-08-29] VITALS: Ht 160 cm
[~2023-08-29 14:12] MED LIST changes: +ACETAMINOPHEN500 M4 PO
[2023-08-29 14:34] LABS: BASO % 0.3 % (0.0-1.0); EOS # 0.1 10*3/uL (0.0-0.4); EOS % 1.4 % (1.0-4.0); HEMATOCRIT 35.5 % (37.0-47.0); LYMPH % 12.8 % (27.0-41.0); MEAN CELL VOLUME 104.4 fl (81.0-99.0); MEAN CORPUSCULAR HGB 32.9 pg (27.0-31.0); MEAN CORPUSCULAR HGB CONC 31.5 g/dl (33.0-37.0); MEAN PLATELET VOLUME 10.6 fl (9.6-12.3); MONO # 0.3 10*3/uL (0.1-1.0); NEUT # 6.5 10*3/uL (2.3-7.9); NEUT % 81.2 % (47.0-73.0); PLATELET COUNT AUTOMATED 262 10*3/uL (130-400); RED CELL DISTRI WIDTH 15.2 % (0-14.5)
[2023-08-29 14:46] LABS: ACT PARTIAL THROMBO TIME 25.4 SECONDS (20.0-32.1)
[2023-08-29 14:58] LABS: TOTAL PROTEIN 6.7 gm/dL (6.0-8.0)
[2023-08-29 15:12] LABS: POTASSIUM 3.2 mmol/L (3.4-5.1)
== END 2023-08-29 16:51 ==
LOC: ED 14:12
PROVIDERS: Emergency Medicine
DX: R55 Syncope and collapse (principal); I50.9 Heart failure, unspecified; I25.10 Atherosclerotic heart disease of native coronary artery without angina pectoris; N18.6 End stage renal disease; Z99.2 Dependence on renal dialysis; Z88.1 Allergy status to other antibiotic agents; Z88.2 Allergy status to sulfonamides; Z88.8 Allergy status to other drugs, medicaments and biological substances; Z79.899 Other long term (current) drug therapy; Z79.4 Long term (current) use of insulin; Z96.641 Presence of right artificial hip joint; Z95.828 Presence of other vascular implants and grafts

== ENCOUNTER 2023-09-01 17:21 | Emergency (ER) | payer OTHER ==
[~2023-09-01] VITALS: Ht 157.4 cm; Wt 45.4 kg
[2023-09-01 17:47] LABS: BASO % 0.4 % (0.0-1.0); EOS # 0.2 10*3/uL (0.0-0.4); EOS % 2.1 % (1.0-4.0); HEMATOCRIT 32.4 % (37.0-47.0); LYMPH % 12.6 % (27.0-41.0); MEAN CELL VOLUME 107.3 fl (81.0-99.0); MEAN CORPUSCULAR HGB 32.5 pg (27.0-31.0); MEAN CORPUSCULAR HGB CONC 30.2 g/dl (33.0-37.0); MEAN PLATELET VOLUME 12.1 fl (9.6-12.3); MONO # 0.6 10*3/uL (0.1-1.0); MONO % 6.8 % (3.0-9.0); NEUT # 6.3 10*3/uL (2.3-7.9); NEUT % 77.9 % (47.0-73.0); PLATELET COUNT AUTOMATED 240 10*3/uL (130-400); RED BLOOD COUNT 3.02 10*6/uL (4.10-5.10); RED CELL DISTRI WIDTH 14.6 % (0-14.5); WHITE BLOOD COUNT 8.1 10*3/uL (4.8-10.8)
[2023-09-01 18:18] LABS: ALKALINE PHOSPHATASE 145 U/L (46-116); BUN 40 mg/dl (9-23); CHLORIDE 97 mmol/L (98-107); LIPASE 19 U/L (12-53); POTASSIUM 3.9 mmol/L (3.4-5.1); SGPT/ALT 43 U/L (5-49); TOTAL PROTEIN 6.5 gm/dL (6.0-8.0)
[2023-09-01] MEDS ORDERED: INSULIN REGULAR, HUMAN 1 UNIT/0.01 ML IV ONE (18:30)
[2023-09-01] MEDS ORDERED: Tdap Vaccine 0.5 ML SYR (Adult Vaccine) IM ONE (18:35)
[2023-09-01] MEDS ORDERED: Bacitracin Zinc 14 GM TUBE T ONE (18:40)
[2023-09-01] MEDS ORDERED: AMOX-CLAV 875-1 EACH PO (18:46)
== END 2023-09-01 20:30 | disposition short-term general hospital (02) ==
LOC: ED 17:21
PROVIDERS: Internal Medicine
DX: S81.811A Laceration without foreign body, right lower leg, initial encounter (principal); E11.65 Type 2 diabetes mellitus with hyperglycemia; E11.22 Type 2 diabetes mellitus with diabetic chronic kidney disease; I13.2 Hypertensive heart and chronic kidney disease with heart failure and with stage 5 chronic kidney disease, or end stage renal disease; I50.9 Heart failure, unspecified; N18.6 End stage renal disease; F17.200 Nicotine dependence, unspecified, uncomplicated; Z88.1 Allergy status to other antibiotic agents; Z88.2 Allergy status to sulfonamides; Z88.8 Allergy status to other drugs, medicaments and biological substances; Z79.899 Other long term (current) drug therapy; Z79.4 Long term (current) use of insulin; Z96.641 Presence of right artificial hip joint; Z95.820 Peripheral vascular angioplasty status with implants and grafts; W23.0XXA Caught, crushed, jammed, or pinched between moving objects, initial encounter; Y93.89 Activity, other specified; Y92.810 Car as the place of occurrence of the external cause; Y99.8 Other external cause status

== ENCOUNTER 2024-04-08 13:34 | Emergency (ER) | payer OTHER ==
[~2024-04-08] VITALS: Ht 157.4 cm; Wt 47.6 kg
[2024-04-08 14:40] LABS: BASO % 0.2 % (0.0-1.0); EOS % 0.3 % (1.0-4.0); HEMATOCRIT 31.7 % (37.0-47.0); LYMPH # 0.7 10*3/uL (1.3-4.4); LYMPH % 7.9 % (27.0-41.0); MEAN CELL VOLUME 94.6 fl (81.0-99.0); MEAN CORPUSCULAR HGB 30.1 pg (27.0-31.0); MEAN CORPUSCULAR HGB CONC 31.9 g/dl (33.0-37.0); MEAN PLATELET VOLUME 10.8 fl (9.6-12.3); MONO # 0.5 10*3/uL (0.1-1.0); MONO % 6.1 % (3.0-9.0); NEUT # 7.3 10*3/uL (2.3-7.9); NEUT % 84.8 % (47.0-73.0); PLATELET COUNT AUTOMATED 207 10*3/uL (130-400); RED BLOOD COUNT 3.35 10*6/uL (4.10-5.10); RED CELL DISTRI WIDTH 15.7 % (0-14.5); WHITE BLOOD COUNT 8.6 10*3/uL (4.8-10.8)
[2024-04-08 14:52] LABS: ACT PARTIAL THROMBO TIME 33.9 SECONDS (20.0-32.1)
[2024-04-08 14:55] LABS: POTASSIUM 3.2 mmol/L (3.4-5.1)
[2024-04-08] MEDS ORDERED: SODIUM CHLORIDE 0.9% 1,000 ML IV ONE (15:45)
== END 2024-04-08 19:50 | disposition home or self-care (01) ==
LOC: ED 13:34
PROVIDERS: Internal Medicine
DX: E87.8 Other disorders of electrolyte and fluid balance, not elsewhere classified (principal); E11.22 Type 2 diabetes mellitus with diabetic chronic kidney disease; I13.2 Hypertensive heart and chronic kidney disease with heart failure and with stage 5 chronic kidney disease, or end stage renal disease; I50.9 Heart failure, unspecified; N18.6 End stage renal disease; K21.9 Gastro-esophageal reflux disease without esophagitis; J45.909 Unspecified asthma, uncomplicated; Z99.2 Dependence on renal dialysis; Z88.8 Allergy status to other drugs, medicaments and biological substances; Z88.2 Allergy status to sulfonamides; Z98.890 Other specified postprocedural states; Z90.49 Acquired absence of other specified parts of digestive tract

== ENCOUNTER → 2024-04-08 | Outpatient (CLI) | payer OTHER ==
[~2024-04-08] MED LIST changes: +ELIQUIS2.5 M1 PO; +LANTHANUM CAR1000 MG PO; +LOPRESSOR25 MG PO; +NEPHRO VITAMIN0.8 MG PO; +NEPHRO-VITE TA0.8 MG PO; +RENA-VITE1 TAB PO; +ZESTRIL40 MG PO
== END | disposition home or self-care (01) ==
LOC: WOUNDCARE 02:28
PROVIDERS: ATTEND Nurse Practitioner Family
DX: L89.150 Pressure ulcer of sacral region, unstageable (principal); E83.59 Other disorders of calcium metabolism; E11.22 Type 2 diabetes mellitus with diabetic chronic kidney disease; N18.6 End stage renal disease; I13.2 Hypertensive heart and chronic kidney disease with heart failure and with stage 5 chronic kidney disease, or end stage renal disease; I50.9 Heart failure, unspecified; E78.5 Hyperlipidemia, unspecified; M48.00 Spinal stenosis, site unspecified; G89.29 Other chronic pain; F32.9 Major depressive disorder, single episode, unspecified; Z96.641 Presence of right artificial hip joint; Z86.718 Personal history of other venous thrombosis and embolism

== ENCOUNTER 2024-05-01 00:36 | Emergency (ER) | payer OTHER ==
[~2024-05-01] VITALS: Ht 170.1 cm; Wt 53.1 kg
[2024-05-01] MEDS ORDERED: Ondansetron Hydrochloride 4 MG/2 ML VIAL IV ONE (00:40)
[2024-05-01 00:55] LABS: BASO % 0.4 % (0.0-1.0); EOS # 0.1 10*3/uL (0.0-0.4); EOS % 0.9 % (1.0-4.0); MEAN CELL VOLUME 98.6 fl (81.0-99.0); MEAN CORPUSCULAR HGB 29.3 pg (27.0-31.0); MEAN CORPUSCULAR HGB CONC 29.7 g/dl (33.0-37.0); MEAN PLATELET VOLUME 11.5 fl (9.6-12.3); MONO # 0.6 10*3/uL (0.1-1.0); MONO % 6.8 % (3.0-9.0); NEUT # 6.4 10*3/uL (2.3-7.9); NEUT % 78.8 % (47.0-73.0); PLATELET COUNT AUTOMATED 180 10*3/uL (130-400); RED BLOOD COUNT 3.45 10*6/uL (4.10-5.10); RED CELL DISTRI WIDTH 15.8 % (0-14.5); WHITE BLOOD COUNT 8.1 10*3/uL (4.8-10.8)
[2024-05-01 01:14] LABS: POTASSIUM 3.2 mmol/L (3.4-5.1)
[2024-05-01] MEDS ORDERED: ZITHROMAX250 MG PO (05:45)
[2024-05-01] MEDS ORDERED: Ondansetron4 MG PO (05:45)
== END 2024-05-01 06:40 | disposition home or self-care (01) ==
LOC: ED 00:36
PROVIDERS: Internal Medicine
DX: B34.9 Viral infection, unspecified (principal); E11.22 Type 2 diabetes mellitus with diabetic chronic kidney disease; E87.29 Other acidosis; R79.82 Elevated C-reactive protein (CRP); E87.6 Hypokalemia; D64.9 Anemia, unspecified; I13.2 Hypertensive heart and chronic kidney disease with heart failure and with stage 5 chronic kidney disease, or end stage renal disease; I50.9 Heart failure, unspecified; N18.6 End stage renal disease; Z99.2 Dependence on renal dialysis; K21.9 Gastro-esophageal reflux disease without esophagitis; R11.0 Nausea; E11.65 Type 2 diabetes mellitus with hyperglycemia; Z88.2 Allergy status to sulfonamides; Z88.8 Allergy status to other drugs, medicaments and biological substances; Z98.890 Other specified postprocedural states

== ENCOUNTER → 2024-05-08 | Outpatient (CLI) | payer OTHER ==
[~2024-05-08] MED LIST changes: +Ondansetron4 MG PO; +ZITHROMAX250 MG PO
== END | disposition home or self-care (01) ==
LOC: WOUNDCARE 01:40
PROVIDERS: ATTEND Nurse Practitioner Family
DX: L89.323 Pressure ulcer of left buttock, stage 3 (principal); E83.59 Other disorders of calcium metabolism; E11.22 Type 2 diabetes mellitus with diabetic chronic kidney disease; I13.2 Hypertensive heart and chronic kidney disease with heart failure and with stage 5 chronic kidney disease, or end stage renal disease; N18.6 End stage renal disease; I50.9 Heart failure, unspecified; E78.5 Hyperlipidemia, unspecified; M48.00 Spinal stenosis, site unspecified; F32.9 Major depressive disorder, single episode, unspecified; Z96.641 Presence of right artificial hip joint; Z95.818 Presence of other cardiac implants and grafts; Z86.718 Personal history of other venous thrombosis and embolism